=== PATIENT | female | born 1970 | race African-American/Black ===

== ENCOUNTER 2021-02-02 00:40 | Emergency (ER) | payer BC ==
--- OUTSIDE RECORDS SUMMARY | 2021-02-02 00:43 | XMS REPORT | Continuity of Care Document ---
:1970 Author Organization [facility] t Address [address] [place] [address] Care Team Providers Name Role Phone Nicolle OLIVEIRA Attending Clinician Unavailable Angela LOZADA Attending Clinician Doctor Unassigned, Name Attending Clinician Unavailable Argelia LOZADA Attending Clinician Helen Lockett Attending Clinician Claudio Dorado MD Attending Clinician Nicolle OLIVEIRA Admitting Clinician Unavailable Payers Payer Name Policy Type Policy Number Effective Date Expiration Date S ource Problems This patient has no known problems. Allergies, Adverse Reactions, Alerts Allergy Allergy Status Severity Reaction(s) Onset Inactive Treating Comm ents Source Name Type Date Date Clinician No Known DA Active U [facility] All[facility]ie 11-02 Baylee s 00:00: d 00 [facility] Medications This patient has no known medications. Procedures This patient has no known procedures. Encounters Start End Encounter Admission Attending Care Care Encounter Source Date/Time Date/Time Type Type Clinicians Facility Department ID 2019-12-18 Inpatient LE RIVAS TRA[facility] [id number] [place] 08:00:00 [facility] 2019-12-18 Inpatient C TEE, [facility] [id number] [place] 07:00:00 [facility] 2020-12-13 2020-12-13 Office SALVATORE Miller 1.2.840.114 [id number] 11:42:08 12:58:05 Visit Cristobal AMBULATOR 350.1.13.21 Y 0.2.7.2.686 [id number] 600 2020-12-13 2020-12-13 Orders Doctor KARINE 1.2.840.114 [id number] 00:00:00 00:00:00 Only Unassigned, MANJEET 350.1.13.10 [place] [facility] 4.2.7.2.686 [id number] 009 2020-11-02 2020-11-02 Office Walter Stout 1.2.840.114 [id number] 14:01:11 14:41:11 Visit C-Arm, Pmr Siemens AMBULATOR 350.1.13. 21 Y 0.2.7.2.686 [id number] 2020-11-02 2020-11-02 Orders Doctor KARNIE 1.2.840.114 [id number] 00:00:00 00:00:00 Only Unassigned, MANJEET 350.1.13.10 [place] [facility] 4.2.7.2.686 [id number] 009 2020-10-06 2020-10-06 RefEVELYN Banegas 1.2.840.114 [id number] 00:00:00 00:00:00 [facility] 350.1.13.10 [place] 4.2.7.2.686 Professio [phone] nal 044 Office [facility] 2020-07-29 2020-07-29 EVELYN Mcgrath 1.2.840.114 [id number] 00:00:00 00:00:00 [facility] 350.1.13.10 [place] 4.2.7.2.686 Professio [phone] nal 044 Office [facility] 2020-07-19 2020-07-19 RefEVELYN Banegas 1.2.840.114 [id number] 00:00:00 00:00:00 [facility] 350.1.13.10 [place] 4.2.7.2.686 Professio [phone] [place] [address] Office [facility] 2020-07-07 2020-07-07 Orders Doctor KARINE 1.2.840.114 [id number] 00:00:00 00:00:00 Only Unassigned, MANJEET 350.1.13.10 [place] [facility] 4.2.7.2.686 [id number] 009 2020-07-07 2020-07-07 Telephone [facility] 1.2.840.114 [id number] 00:00:00 00:00:00 [facility] 350.1.13.10 [place] 4.2.7.2.686 Professio [phone] [address] 2020-06-21 2020-06-21 Orders Doctor KARINE 1.2.840.114 [id number] 00:00:00 00:00:00 Only Unassigned, MANJEET 350.1.13.10 [place] [facility] 4.2.7.2.686 [id number] 009 2020-05-24 2020-05-24 Telephone [facility] 1.2.840.114 [id number] 00:00:00 00:00:00 [facility] [place] 350.1.13.10 [place] 4.2.7.2.686 Professio [phone] [address] 2020-04-28 2020-04-28 Telephone [facility] 1.2.840.114 [id number] 00:00:00 00:00:00 [facility] [place] 350.1.13.10 [place] 4.2.7.2.686 Professio [phone] [address] 2020-04-28 2020-04-28 Telephone [facility] 1.2.840.114 [id number] 00:00:00 00:00:00 [facility] [place] 350.1.13.10 [place] 4.2.7.2.686 Professio [phone] [address] 2020-04-20 2020-04-20 Orders Doctor KARINE 1.2.840.114 [id number] 00:00:00 00:00:00 Only Unassigned, MANJEET 350.1.13.10 [place] [facility] 4.2.7.2.686 [id number] 009 2020-04-16 2020-04-[address] [facility] 1.2.840.114 [id number] 00:00:00 00:00:00 [facility] [place] 350.1.13.10 [place] 4.2.7.2.686 Professio [phone] [address] 2020-04-15 2020-04-15 Orders Doctor KARINE 1.2.840.114 [id number] 00:00:00 00:00:00 Only Unassigned, MANJEET 350.1.13.10 [place] [facility] 4.2.7.2.686 [id number] [id number] 2020-04-13 2020-04-[address] [facility] 1.2.840.114 [id number] 00:00:00 00:00:00 [facility] [place] 350.1.13.10 [place] 4.2.7.2.686 Professio [phone] [address] 2020-04-13 2020-04-13 Telephone EVELYN Dorado 1.2.840.114 [id number] 00:00:00 00:00:00 [facility] 350.1.13.10 [place] 4.2.7.2.686 Professio [phone] [place] [address] Office [facility] 2020-04-12 2020-04-12 Office SALVATORE Miller 1.2.840.114 [id number] 10:02:20 10:55:55 Visit Cristobal AMBULATOR 350.1.13.21 Y 0.2.7.2.686 [id number] 2020-04-12 2020-04-[address] VAJOSE 1.2.840.114 [id number] 00:00:00 00:00:00 [facility] 350.1.13.10 [place] 4.2.7.2.686 Professio [phone] [place] [address] Office [facility] 2020-04-12 2020-04-12 Orders Doctor MILTON 1.2.840.114 [id number] 00:00:00 00:00:00 Only Unassigned, MANJEET 350.1.13.10 [place] [facility] 2.7.2.686 [id number] 009 2020-03-26 2020-03-26 Office EVELYN Dorado 1.2.840.114 [id number] 11:33:02 12:20:26 Visit Swathi Medrano 350.1.13.10 [place] 4.2.7.2.686 Chris [phone] [address] 2020-03-19 2020-03-19 Emergency E MHBL [facility]BL 7500 [facility]BL 23:20:00 23:20:00 2020-03-19 2020-03-19 Orders Doctor KARINE 1.2.840.114 [id number] 00:00:00 00:00:00 Only Unassigned, MANJEET 350.1.13.10 [place] [address]686 [phone] 009 Results Test Description Test Time Test Comments Results Result [facility] e Comments - XR L-SPINE 2019-07-05 Name: KATERYNA SAMSON 4+VIEWS 02:35:00 DEVAN [facility] : 1970 Age/S: 48 / F [address] [address] Unit #: [id number] Loc: [place] [address] Phys: Katie Guerrero MD Acct: [id number] Dis Date: Status: REG ER PHONE #: [phone] Exam Date: 07/05/2019 021 FAX #: Reason: hip pain EXAMS: CPT: [id number] XR L-SPINE 4+VIEWS 91030 Fluoro Time: DAP (Gy m2): Air Kerma (mGy): EXAM: Lumbar spine 5 views. HISTORY: Back pain R 16 COMPARISON: None available. FINDINGS: Mild bilateral facet arthrosis in the lower lumbar spine.. Lumbar spine demonstrates normal alignment. There are 5 nonrib-bearing lumbar vertebral bodies. Vertebral body heights and intervertebral disc spaces are maintained. There is no acute fracture or subluxation. Visualized soft tissues are unremarkable. IMPRESSION: No acute findings at 0235 Reported and signed by: Kian Stout M.D. CC: Katie Guerrero MD PAGE 1 Signed Report Name: KATERYNA SAMSON [facility] : 1970 Age/S: 48 / F [address] [address] Unit #: [id number] Loc: [place] [address] Phys: Katie Guerrero MD Acct: [id number] Dis Date: Status: REG ER PHONE #: [phone] Exam Date: 07/05/2019 0215 FAX #: Reason: hip pain EXAMS: CPT: [id number] XR L-SPINE 4+VIEWS 29493 Fluoro Time: DAP (Gy m2): Air Kerma (mGy): <Continued> Technologist: RT Ace(R) Trndcb Date/Time: 07/05/2019 (023) [id number] Orig Print D/T: S: 07/05/2019 (0238) PAGE 2 Signed Report - XR HIP BI 2019-07-05 Name: KATERYNA SAMSON W/PELVIS 02:33:00 DEVAN [facility] : 1970 Age/S: 48 / F [id number] [address] Unit #: [id number] Loc: [place] [address] Phys: Katie Guerrero MD Acct: [id number] Dis Date: Status: REG ER PHONE #: [phone] Exam Date: 07/05/2019 0200 FAX #: Reason: hip pain EXAMS: CPT: [id number] XR HIP BI W/PELVIS 14926 Fluoro Time: DAP (Gy m2): Air Kerma (mGy): EXAM: Pelvis and bilateral hips, 3 views Location code:J9 HISTORY: hip pain COMPARISON: None available FINDINGS: There is no acute fracture or dislocation. Severe osteoarthritis with complete loss of joint space at the right hip. The soft tissues are unremarkable.. IMPRESSION:No acute findings. Severe right hip osteoarthritis. at 0233 Reported and signed by: Kian Stout M.D. CC: Katie Guerrero MD PAGE 1 Signed Report Name: KATERYNA SAMSON [facility] : 1970 Age/S: 48 / F [address] [address] Unit #: [id number] Loc: [place] [address] Phys: Katie Guerrero MD Acct: [id number] Dis Date: Status: REG ER PHONE #: [phone] Exam Date: 07/05/2019 0200 FAX #: Reason: hip pain EXAMS: CPT: [id number] XR HIP BI W/PELVIS 21521 Fluoro Time: DAP (Gy m2): Air Kerma (mGy): <Continued> Technologist: Yumiko Merida RT(R) Trnscb Date/Time: 07/05/2019 (0233) [email or web address] Orig Print D/T: S: 07/05/2019 (0236) PAGE 2 Signed Report
[2021-02-02] MEDS ORDERED: MORPHINE 4 MG/ML SYR ONE (01:35)
[2021-02-02] MEDS ORDERED: ONDANSETRON 4 MG/2 ML VIAL ONE (01:36)
--- NOTE | 2021-02-02 04:49 | EDPHYS ---
Physician Documentation [facility] Name: Puja Abarca Age: 50 yrs Sex: Female : 1970 Arrival Date: 02/02/2021 Time: 00:45 Bed 2 Private MD: ED Physician Kian Tellez HPI: 02/02 01:27 This 50 yrs old Black Female presents to ER via Wheelchair with complaints of Leg Pain. rn 01:27 The patient presents with pain, that is acute. The complaints affect the right rn buttocks/thigh. Onset: The symptoms/episode began/occurred yesterday. Modifying factors: The symptoms are alleviated by remaining still, the symptoms are aggravated by movement. Associated signs and symptoms: Pertinent negatives calf tenderness, fever, rash, swelling, tingling, vomiting, warmth, weakness. Severity of symptoms: At their worst the symptoms were moderate, in the emergency department the symptoms are unchanged. The patient has experienced similar episodes in the past. Reports right leg pain, from right hip region/low back to right knee, + hx of dvt in past, no longer taking eliquis. Also has been seeing ortho for bad right hip and right knee. No injury recently. No fever. No swelling. . [employer]: 01:22 LMP N/A - Irregular menses ad5 Historical: - Allergies: 01:10 No Known Allergies; ea - PMHx: 01:19 Diabetes - NIDDM; Hypertension; DVT; High Cholesterol; ad5 - Immunization history:: Adult Immunizations up to date. - Social history:: Smoking status: Patient denies any tobacco usage or history of. Smoking status: unknown. - Family history:: not pertinent. - Hospitalizations: : No recent hospitalization is reported. ROS: 01:27 Constitutional: Negative for fever, chills, and weight loss, Eyes: Negative for injury, rn pain, redness, and discharge, Neck: Negative for injury, pain, and swelling, Cardiovascular: Negative for chest pain, palpitations, and edema, Respiratory: Negative for shortness of breath, cough, wheezing, and pleuritic chest pain, Abdomen/GI: Negative for abdominal pain, nausea, vomiting, diarrhea, and constipation, Back: + mild low back pain MS/Extremity: + RLE pain Skin: Negative for injury, rash, and discoloration, Neuro: Negative for headache, weakness, numbness, tingling, and seizure. Exam: 01:27 Constitutional: This is a well developed, well nourished patient who is awake, alert, rn appears uncomfortable getting into bed Head/Face: Normocephalic, atraumatic. Cardiovascular: Tachycardic, regular Respiratory: No increased work of breathing, no retractions or nasal flaring. Skin: Warm, dry with normal turgor. Normal color with no rashes, no lesions, and no evidence of cellulitis. MS/ Extremity: Pulses equal, no cyanosis. Neurovascular intact. Equal circumference. Neuro: Awake and alert, GCS 15, oriented to person, place, time, and situation. Vital Signs: 01:10 BP 207 / 108; Pulse 93; Resp 18; Temp 97.6; Pulse Ox 98% ; ea 01:22 BP 207 / 108; Pulse 101; Resp 18; Temp 97.6; Pulse Ox 96% on R/A; Weight 125.19 kg; ad5 Height 5 ft. 3 in. (160.02 cm); 02:00 BP 157 / 86; Pulse 65; Resp 18; Pulse Ox 98% ; ea 04:58 BP 155 / 85; Pulse 69; Resp 18; Temp 98; Pulse Ox 100% on R/A; mg2 01:22 Body Mass Index 48.89 (125.19 kg, 160.02 cm) ad5 MDM: 01:03 Patient medically screened. rn 04:45 Differential diagnosis: tendonitis, radiculopathy, DVT. Data reviewed: vital signs, rn nurses notes. 04:46 Counseling: I had a detailed discussion with the patient and/or guardian regarding: the rn historical points, exam findings, and any diagnostic results supporting the discharge/admit diagnosis, radiology results, the need for outpatient follow up, to return to the emergency department if symptoms worsen or persist or if there are any questions or concerns that arise at home. Special discussion: I discussed with the patient/guardian in detail that at this point there is no indication for admission to the hospital. It is understood, however, that if the symptoms persist or worsen the patient needs to return immediately for re-evaluation. 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 02/02 01:13 Order name: Extremity Venous Uni Ltd US rn 02/02 01:14 Order name: IV Start; Complete Time: : rn Administered Medications: 01:25 Drug: morphine 4 mg Route: IVP; Site: right antecubital; ea 04:50 Follow up: Response: No adverse reaction mg2 01:26 Drug: Zofran (Ondansetron) 4 mg Route: IVP; Site: right hand; ea 04:50 Follow up: Response: No adverse reaction mg2 04:50 Drug: Eliquis (apixaban) 5 mg Route: PO; mg2 04:50 Follow up: Response: No adverse reaction mg2 04:58 Drug: [place] (HYDROcodone-acetaminophen) 10 mg-325 mg 1 tabs Route: PO; mg2 04:58 Follow up: Response: No adverse reaction; Medication administered at discharge. mg2 Disposition: 02/02/21 04:48 Discharged to Home. Impression: Acute embolism and thrombosis of unspecified deep veins of right lower extremity. - Condition is Stable. - Discharge Instructions: Deep Vein Thrombosis. - Prescriptions for Eliquis 5 mg Oral tablet - take 1 tablet by ORAL route 2 times per day; 60 tablet. Tramadol 50 mg Oral Tablet - take 1 tablet by ORAL route every 8 hours as needed; 15 tablet. - Medication Reconciliation Form, Thank You Letter, Antibiotic Education, Prescription Opioid Use form. - Follow up: Private Physician; When: 2 - 3 days; Reason: Recheck today's complaints, Re-evaluation by your physician. - Problem is new. - Symptoms are unchanged. Signatures: Dispatcher [employer] EDMS Kian Tellez MD MD rn Antunez, Elena, RN RN ea Gardose, Michele, RN RN mg2 Davidson, Andrea ad5 Corrections: (The following items were deleted from the chart) 04:59 04:48 02/02/2021 04:48 Discharged to Home. Impression: Acute embolism and thrombosis of mg2 unspecified deep veins of right lower extremity. Condition is Stable. Forms are Medication Reconciliation Form, Thank You Letter, Antibiotic Education, Prescription Opioid Use. Follow up: Private Physician; When: 2 - 3 days; Reason: Recheck today's complaints, Re-evaluation by your physician. Problem is new. Symptoms are unchanged. rn
--- NOTE | 2021-02-02 04:49 | ER ---
Nurse's Notes [facility] Name: Puja Abarca Age: 50 yrs Sex: Female : 1970 Arrival Date: 02/02/2021 Time: 00:45 Bed 2 Private MD: Diagnosis: Acute embolism and thrombosis of unspecified deep veins of right lower extremity Presentation: 02/02 01:09 Ebola Screen: No symptoms or risks identified at this time. ea 01:10 Initial Sepsis Screen: Does the patient meet any 2 criteria? No. Patient's initial ea sepsis screen is negative. Does the patient have a suspected source of infection? No. Patient's initial sepsis screen is negative. Risk Assessment: Do you want to hurt yourself or someone else? Patient reports no desire to harm self or others. Onset of symptoms was February 02, 2021. 01:10 Acuity: JAYME 3 ea 01:16 Chief complaint: Patient states: Pt reports R groin pain that radiates to R knee that ad5 began today. Denies fall or injury. Reports hx of "messed up hip" and "blood clot". Pt reports dx with blood clot in past year and taking Eliquis for this, but states ran out of med recently. Denies paresthesias. Distal SMCs intact. Coronavirus screen: Client denies travel out of the [place] in the last 14 days. At this time, the client does not indicate any symptoms associated with coronavirus-19. 01:16 Method Of Arrival: Wheelchair ad5 Triage Assessment: 01:20 General: Appears uncomfortable, Behavior is calm, cooperative, appropriate for age. ad5 Pain: Complains of pain in right leg Pain at worst was 10 out of 10 on a pain scale. Quality of pain is described as throbbing, Pain began gradually, 1 day ago. Is continuous, Aggravated by increased activity, weight bearing, Noted to be Also complains of difficulty walking Current management - is no interventions. Neuro: No deficits noted. Level of Consciousness is awake, alert, obeys commands, Oriented to person, place, time, situation. Cardiovascular: No deficits noted. Respiratory: No deficits noted. GI: No deficits noted. : No deficits noted. Derm: No deficits noted. Musculoskeletal: Capillary refill < 3 seconds, Tenderness present in medial aspect of right knee Reports pain in right leg Pain is 10 out of 10 on a pain scale. 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 - Social history:: Smoking status: Patient denies any tobacco usage or history of. Smoking status: unknown. - Family history:: not pertinent. - Hospitalizations: : No recent hospitalization is reported. Screenin:09 Abuse screen: Denies threats or abuse. Nutritional screening: No deficits noted. ea Tuberculosis screening: No symptoms or risk factors identified. Fall Risk None identified. Assessment: 01:23 General: Appears uncomfortable, Behavior is calm, cooperative, appropriate for age. ad5 Pain: Complains of pain in right leg Pain currently is 10 out of 10 on a pain scale. at worst was 10 out of 10 on a pain scale. Quality of pain is described as throbbing, Pain began gradually, 1 day ago. Is continuous, Aggravated by increased activity, weight bearing. Neuro: No deficits noted. Level of Consciousness is awake, alert, obeys commands, Oriented to person, place, time, situation, Appropriate for age. Cardiovascular: No deficits noted. Heart tones S1 Capillary refill < 3 seconds Clubbing of nail beds is absent JVD is absent Patient's skin is warm and dry. Pulses are all present. Rhythm is regular Chest pain is denied. Respiratory: No deficits noted. Airway is patent Trachea midline Respiratory effort is even, unlabored, Respiratory pattern is regular, symmetrical. GI: No deficits noted. : No deficits noted. EENT: No deficits noted. Derm: No deficits noted. Musculoskeletal: Capillary refill < 3 seconds, Range of motion: limited in right hip and right knee Swelling absent Tenderness present in medial aspect of right knee Reports pain in right leg. 02:45 Reassessment: Patient and/or family updated on plan of care and expected duration. Pain ea level reassessed. Patient is alert, oriented x 3, equal unlabored respirations, skin warm/dry/pink. Awaiting on ultrasounds. 02:48 Reassessment: Patient and/or family updated on plan of care and expected duration. Pain ea level reassessed. Patient is alert, oriented x 3, equal unlabored respirations, skin warm/dry/pink. Ultrasounds at bedside. 04:06 Reassessment: Patient appears in no apparent distress at this time. Patient and/or ad5 family updated on plan of care and expected duration. Pain level reassessed. Patient is alert, oriented x 3, equal unlabored respirations, skin warm/dry/pink. Vital Signs: 01:10 BP 207 / 108; Pulse 93; Resp 18; Temp 97.6; Pulse Ox 98% ; ea 01:22 BP 207 / 108; Pulse 101; Resp 18; Temp 97.6; Pulse Ox 96% on R/A; Weight 125.19 kg; ad5 Height 5 ft. 3 in. (160.02 cm); 02:00 BP 157 / 86; Pulse 65; Resp 18; Pulse Ox 98% ; ea 04:58 BP 155 / 85; Pulse 69; Resp 18; Temp 98; Pulse Ox 100% on R/A; mg2 01:22 Body Mass Index 48.89 (125.19 kg, 160.02 cm) ad5 ED Course: 00:45 Patient arrived in ED. es 01:02 Destin Salgado is Primary Nurse. ad5 01:03 Kian Tellez MD is Attending Physician. rn 01:09 Patient has correct armband on for positive identification. Placed in gown. Bed in low ea position. Call light in reach. Side rails up X2. Pulse ox on. NIBP on. 01:10 Arm band placed on right wrist. Patient placed in an exam room, on a stretcher, on ea pulse oximetry. 01:11 Triage completed. ea 01:27 Inserted saline lock: 22 gauge in right hand, using aseptic technique. Blood collected. ea 03:23 Extremity Venous Uni Ltd US In Process Unspecified. EDMS 04:58 No provider procedures requiring assistance completed. IV discontinued, intact, mg2 bleeding controlled, No redness/swelling at site. Pressure dressing applied. Administered Medications: 01:25 Drug: morphine 4 mg Route: IVP; Site: right antecubital; ea 04:50 Follow up: Response: No adverse reaction mg2 01:26 Drug: Zofran (Ondansetron) 4 mg Route: IVP; Site: right hand; ea 04:50 Follow up: Response: No adverse reaction mg2 04:50 Drug: Eliquis (apixaban) 5 mg Route: PO; mg2 04:50 Follow up: Response: No adverse reaction mg2 04:58 Drug: [place] (HYDROcodone-acetaminophen) 10 mg-325 mg 1 tabs Route: PO; mg2 04:58 Follow up: Response: No adverse reaction; Medication administered at discharge. mg2 Outcome: 04:48 Discharge ordered by . rn 04:59 Discharged to home via wheelchair, with family. mg2 04:59 Condition: stable 04:59 Discharge instructions given to patient, family, Instructed on discharge instructions, follow up and referral plans. medication usage, Demonstrated understanding of instructions, follow-up care, medications, Prescriptions given X 2. 04:59 Patient left the ED. mg2 Signatures: Dispatcher [employer] EDKellie Monson Roman, MD MD rn Antunez, Elena, RN RN ea Gardose, Michele, RN RN mg2 Davidson, Andrea ad5
[2021-02-02] MEDS ORDERED: APIXABAN 5 MG TABLET ONE (05:07)
[2021-02-02 05:10] VITALS: BP 155/85; TEMP 98; O2SAT 100
[2021-02-02] MEDS ORDERED: HYDROCODONE/APAP 10/325 TAB ONE (05:14)
--- NOTE | 2021-02-02 11:46 | RAD REPORT ---
EXAM DESCRIPTION: USExtremity Venous Uni Ltd02/02/2021 3:23 am CLINICAL HISTORY: PAIN COMPARISON: None. TECHNIQUE: Grayscale, color Doppler, duplex Doppler images with compression and augmentation of righ t lower extremity veins. FINDINGS: Right femoral vein midthigh and distal thigh partial thrombus. Right common femoral, greater saphenous, femoral proximal thigh veins unremarkable without evidence o f clot. Right lower leg (calf) veins not imaged. IMPRESSION: Right femoral vein mid-distal thigh partial DVT of indeterminate age. Electronically signed by: Keshav John MD 02/02/2021 4:16 AM CDT Due to temporary technical issues with the PACS/Fluency reporting system, reports are being signed by the in house radiologist without review as a courtesy to ensure prompt reporting. The interpreting r adiologist is fully responsible for the content of the report.
== END 2021-02-02 04:59 | disposition home or self-care (01) ==
LOC: ER 00:40
DX: I82.401 Acute embolism and thrombosis of unspecified deep veins of right lower extremity (principal); I10 Essential (primary) hypertension; Z86.718 Personal history of other venous thrombosis and embolism
CPT/HCPCS: 93971; J2405; 99284

== ENCOUNTER 2021-04-11 04:21 | Emergency (ER) | payer BC ==
--- OUTSIDE RECORDS SUMMARY | 2021-04-11 04:24 | XMS REPORT | Continuity of Care Document ---
:1970 Author Organization [facility] t Address [address] [place] [address] Care Team Providers Name Role Phone Nicolle OLIVEIRA Attending Clinician Unavailable Claudio Dorado MD Attending Clinician Doctor Unassigned, Name Attending Clinician Unavailable Brian LOZADA Attending Clinician Angela LOZADA Attending Clinician Argelia LOZADA Attending Clinician Helen Lockett Attending Clinician Nicolle OLIVEIRA Admitting Clinician Unavailable Payers Payer Name Policy Type Policy Number Effective Date Expiration Date S ource Problems This patient has no known problems. Allergies, Adverse Reactions, Alerts Allergy Allergy Status Severity Reaction(s) Onset Inactive Treating Comm ents Source Name Type Date Date Clinician No Known DA Active [facility] 11[facility]02 [facility] Medications This patient has no known medications. Procedures This patient has no known procedures. Encounters Start End Encounter Admission Attending Care Care Encounter Source Date/Time Date/Time Type Type Clinicians Facility Department ID 2019-12-18 Inpatient C [facility] [id number] [place] 08:00:00 [facility] 2019-12-18 Inpatient C [facility] [id number] [place] 07:00:00 [facility] 2021-03-22 2021-03-[address] [facility] [id number] 00:00:00 00:00:00 [facility] [id number] [place] [id number] Professio [phone] [place] [address] [address] 2021-03-18 2021-03-18 [facility] [id number] 00:00:00 00:00:00 [facility] [id number] [place] [id number] Professio [phone] [place] [address] [address] 2021-03-14 2021-03-14 [facility] 1.2.840.114 [id number] 00:00:00 00:00:00 [facility] [id number] [place] 4.2.7.2.686 Professio [phone] [place] [address] [address] 2021-03-14 2021-03-14 Orders Doctor KARINE 1.2.840.114 [id number] 00:00:00 00:00:00 Only Unassigned, MANJEET 350.1.13.10 [facility] 4.2.7.2.686 [phone] [id number] 2021-02-10 2021-02-10 Office Hector Torres 1.2.840.114 [id number] 10:45:58 11:25:58 Visit AMBULATOR 350.1.13.21 Y 0.2.7.2.686 [phone] 800 2020-12-13 2020-12-13 Office SALVATORE Miller 1.2.840.114 [id number] 11:42:08 12:58:05 Visit Cristobal AMBULATOR [id number] Y [id number] 600 2020-11-02 2020-11-02 Office Walter Stout [facility] 1.2.840.114 [id number] 14:01:11 14:41:11 Visit C-Arm, Pmr Siemens AMBULATOR 350.1.13. 21 Y [id number] 800 2020-04-12 2020-04-12 Office SALVATORE Miller 1.2.840.114 [id number] 10:02:20 10:55:55 Visit Cristobal AMBULATOR 350.1.13.21 Y [id number] [id number] 2020-03-19 2020-03-19 Emergency E [facility]BL [facility] 7500 [facility] 23:20:00 23:20:00 Results Test Description Test Time Test Comments Results Result [facility] e Comments - XR L-SPINE 2019-07-05 Name: KATERYNA SAMSON 4+VIEWS 02:35:00 DEVAN [facility] : 1970 Age/S: 48 / F [id number] Unit #: [id number] Loc: [place] [address] Phys: Katie Guerrero MD Acct: [id number] Dis Date: Status: REG ER PHONE #: [phone] Exam Date: 07/05/2019 0215 FAX #: Reason: hip pain EXAMS: CPT: [id number] XR L-SPINE 4+VIEWS 02675 Fluoro Time: DAP (Gy m2): Air Kerma [...] PAGE 1 Signed Report Name: KATERYNA SAMSON [facility] : 1970 Age/S: 48 / F [address] Unit #: [id number] Loc: [place] [address] Phys: Katie Guerrero MD Acct: [id number] Dis Date: Status: REG ER PHONE #: [phone] Exam Date: 07/05/2019 0215 FAX #: Reason: hip pain EXAMS: CPT: [id number] XR L-SPINE 4+VIEWS 23582 Fluoro Time: DAP (Gy m2): Air Kerma (mGy): <Continued> Technologist: Yumiko Merida RT(R) Trnscb Date/Time: 07/05/2019 (0235) [id number] Orig Print D/T: S: 07/05/2019 (0238) PAGE 2 Signed Report - XR HIP BI 2019-07-05 Name: KATERYNA SAMSON W/PELVIS 02:33:00 DEVAN [facility] : 1970 Age/S: 48 / F [address] Unit #: [id number] Loc: [place] [address] Phys: Katie Guerrero MD Acct: [id number] Dis Date: Status: REG ER PHONE #: [phone] Exam Date: 07/05/2019 0200 FAX #: Reason: hip pain EXAMS: CPT: [id number] XR HIP BI W/PELVIS 35151 Fluoro Time: DAP (Gy m2): Air Kerma [...] PAGE 1 Signed Report Name: KATERYNA SAMSON [facility] : 1970 Age/S: 48 / F [address] Unit #: [id number] Loc: [place] [address] Phys: Katie Guerrero MD Acct: [id number] Dis Date: Status: REG ER PHONE #: [phone] Exam Date: 07/05/2019 0200 FAX #: Reason: hip pain EXAMS: CPT: [id number] XR HIP BI W/PELVIS 55809 Fluoro Time: DAP (Gy m2): Air Kerma (mGy): <Continued> Technologist: Yumiko Merida RT(R) Trnscb Date/Time: 07/05/2019 (0233) [id number] Orig Print D/T: S: 07/05/2019 (0236) PAGE 2 Signed Report
[2021-04-11] MEDS ORDERED: ACETAMINOPHEN 500 MG TAB ONE (05:52)
--- NOTE | 2021-04-11 06:52 | ER ---
Nurse's Notes [facility] Name: Puja Abarca Age: 50 yrs Sex: Female : 1970 Arrival Date: 04/11/2021 Time: 04:23 Bed 19 Private MD: Diagnosis: Exudative Pharyngitis Presentation: 04/11 04:43 Chief complaint: Patient states: head cold for a few days, sore throat, right ear pain em and nasal drainage, denies fever, has tried OTC medication with no relief. Coronavirus screen: Client denies travel out of the [place] in the last 14 days. Ebola Screen: Patient negative for fever greater than or equal to 101.5 degrees Fahrenheit, and additional compatible Ebola Virus Disease symptoms Patient denies exposure to infectious person. Patient denies travel to an Ebola-affected area in the 21 days before illness onset. No symptoms or risks identified at this time. Initial Sepsis Screen: Does the patient meet any 2 criteria? HR > 90 bpm. No. Patient's initial sepsis screen is negative. Does the patient have a suspected source of infection? No. Patient's initial sepsis screen is negative. Risk Assessment: Do you want to hurt yourself or someone else? Patient reports no desire to harm self or others. Onset of symptoms was April 11, 2021. 04:43 Method Of Arrival: Wheelchair em 04:43 Acuity: JAYME 4 em Triage Assessment: 04:59 General: Appears in no apparent distress. Behavior is calm, cooperative. Pain: Denies ak2 pain. EENT: Reports nasal congestion. 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 - Social history:: Smoking status: Patient denies any tobacco usage or history of. Screenin:00 Abuse screen: Denies threats or abuse. Denies injuries from another. Nutritional ak2 screening: No deficits noted. Tuberculosis screening: No symptoms or risk factors identified. Fall Risk None identified. Assessment: 05:00 General: Appears in no apparent distress. Behavior is calm, cooperative. ak2 05:00 Neuro: No deficits noted. Cardiovascular: No deficits noted. Respiratory: No deficits ak2 noted. 05:24 Reassessment: Patient and/or family updated on plan of care and expected duration. Pain ak2 level reassessed. 06:08 Reassessment: Patient and/or family updated on plan of care and expected duration. Pain ak2 level reassessed. Vital Signs: 04:43 Pulse 106; Resp 20; Temp 98.5(O); Pulse Ox 99% on R/A; Weight 126.1 kg; Height 5 ft. 3 em in. (160.02 cm); Pain 10/10; 04:50 BP 158 / 75; em 05:00 BP 143 / 76; Pulse 85; Resp 18; Pulse Ox 98% on R/A; ak2 04:43 Body Mass Index 49.24 (126.10 kg, 160.02 cm) em ED Course: 04:23 Patient arrived in ED. 04:45 Triage completed. em 04:45 Arm band placed on. 04:54 Derik Damico MD is Attending Physician. [facility] 04:59 Mehul Sagastume is Primary Nurse. ak2 05:00 Patient has correct armband on for positive identification. ak2 05:00 No provider procedures requiring assistance completed. Patient did not have IV access ak2 during this emergency room visit. Administered Medications: 05:31 Drug: Tylenol 1000 mg Route: PO; ak2 06:35 Follow up: Response: Pain is decreased ak2 Outcome: 06:52 Discharge ordered by . [facility] 06:58 Discharged to home ambulatory. ak2 06:58 Condition: good 06:58 Discharge instructions given to patient, Prescriptions given X 06:58 Patient left the ED. ak2 Signatures: Kellie Orlando Edgar, RN RN Derik Damico MD MD Mehul Zhang ak2
--- NOTE | 2021-04-11 06:52 | EDPHYS ---
Physician Documentation [facility] Name: Puja Abarca Age: 50 yrs Sex: Female : 1970 Arrival Date: 04/11/2021 Time: 04:23 Bed 19 Private MD: ED Physician Derik Damico HPI: 04/11 05:10 This 50 yrs old Black Female presents to ER via Wheelchair with complaints of Ear Pain, mh7 Sore Throat, Headache, Nasal Drainage. 05:23 The patient presents with sore throat. The patient describes throat pain as mh7 intermittent. Onset: The symptoms/episode began/occurred 4 day(s) ago. Severity of symptoms: At their worst the symptoms were moderate, 2 day(s) ago, in the emergency department the symptoms have improved, moderately. Modifying factors: The symptoms are alleviated by nothing, the symptoms are aggravated by swallowing. Associated signs and symptoms: Pertinent positives: earache, headache, rhinorrhea, nasal drainage, Pertinent negatives chest pain, chills, cough, diarrhea, dysphagia, fever, flu-like symptoms, nausea, shortness of breath, vomiting. 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 - Social history:: Smoking status: Patient denies any tobacco usage or history of. ROS: 05:23 Constitutional: Negative for fever, chills, and weight loss, Eyes: Negative for injury, mh7 pain, redness, and discharge, Neck: Negative for injury, pain, and swelling, Cardiovascular: Negative for chest pain, palpitations, and edema, Respiratory: Negative for shortness of breath, cough, wheezing, and pleuritic chest pain, Abdomen/GI: Negative for abdominal pain, nausea, vomiting, diarrhea, and constipation, Back: Negative for injury and pain, : Negative for injury, bleeding, discharge, and swelling, MS/Extremity: Negative for injury and deformity, Skin: Negative for injury, rash, and discoloration, Psych: Negative for depression, anxiety, suicide ideation, homicidal ideation, and hallucinations, Allergy/Immunology: Negative for hives, rash, and allergies, Endocrine: Negative for neck swelling, polydipsia, polyuria, polyphagia, and marked weight changes, Hematologic/Lymphatic: Negative for swollen nodes, abnormal bleeding, and unusual bruising. Exam: 05:23 Constitutional: This is a well developed, well nourished patient who is awake, alert, mh7 and in no acute distress. Head/Face: Normocephalic, atraumatic. Eyes: Pupils equal round and reactive to light, extra-ocular motions intact. Lids and lashes normal. Conjunctiva and sclera are non-icteric and not injected. Cornea within normal limits. Periorbital areas with no swelling, redness, or edema. 05:23 Neck: Trachea midline, no thyromegaly or masses palpated, and no cervical lymphadenopathy. Supple, full range of motion without nuchal rigidity, or vertebral point tenderness. No Meningismus. Chest/axilla: Normal chest wall appearance and motion. Nontender with no deformity. No lesions are appreciated. Cardiovascular: Regular rate and rhythm with a normal S1 and S2. No gallops, murmurs, or rubs. Normal PMI, no JVD. No pulse deficits. Respiratory: Lungs have equal breath sounds bilaterally, clear to auscultation and percussion. No rales, rhonchi or wheezes noted. No increased work of breathing, no retractions or nasal flaring. Abdomen/GI: Soft, non-tender, with normal bowel sounds. No distension or tympany. No guarding or rebound. No evidence of tenderness throughout. Back: No spinal tenderness. No costovertebral tenderness. Full range of motion. Skin: Warm, dry with normal turgor. Normal color with no rashes, no lesions, and no evidence of cellulitis. MS/ Extremity: Pulses equal, no cyanosis. Neurovascular intact. Full, normal range of motion. Neuro: Awake and alert, GCS 15, oriented to person, place, time, and situation. Cranial nerves II-XII grossly intact. Motor strength 5/5 in all extremities. Sensory grossly intact. Cerebellar exam normal. Normal gait. Psych: Awake, alert, with orientation to person, place and time. Behavior, mood, and affect are within normal limits. 05:23 ENT: External ear(s): are unremarkable, Ear canal(s): are normal, clear, TM's: are normal, Nose: is normal, Mouth: is normal, Posterior pharynx: Airway: normal, Tonsils: bilaterally enlarged, with erythema, with exudate, Uvula: normal, swelling, is not appreciated, erythema, that is moderate, exudate, that is mild, peritonsillar mass, is not appreciated, pooling of secretions, is not appreciated, Dental exam: normal, Voice: is normal. Vital Signs: 04:43 Pulse 106; Resp 20; Temp 98.5(O); Pulse Ox 99% on R/A; Weight 126.1 kg; Height 5 ft. 3 em in. (160.02 cm); Pain 10/10; 04:50 BP 158 / 75; em 05:00 BP 143 / 76; Pulse 85; Resp 18; Pulse Ox 98% on R/A; ak2 04:43 Body Mass Index 49.24 (126.10 kg, 160.02 cm) em MDM: 06:50 Differential diagnosis: pharyngitis, tonsillitis, viral syndrome Otitis Media. Data [facility] reviewed: vital signs, nurses notes, lab test result(s), Flu: negative. Data interpreted: Pulse oximetry: on room air is 98 %. Interpretation: normal. Counseling: I had a detailed discussion with the patient and/or guardian regarding: the historical points, exam findings, and any diagnostic results supporting the discharge/admit diagnosis, the presence of at least one elevated blood pressure reading (>120/80) during this emergency department visit, lab results, the need for outpatient follow up, to return to the emergency department if symptoms worsen or persist or if there are any questions or concerns that arise at home. Response to treatment: the patient's symptoms have markedly improved after treatment. 06:52 Patient medically screened. [facility] 04/11 04:49 Order name: Flu; Complete Time: 06:01 em 04/11 04:49 Order name: Strep; Complete Time: 06:01 em 04/11 05:48 Order name: Throat Culture EDMS 04/11 06:35 Order name: SARS-COV-2 RT PCR; Complete Time: 06:43 EDMS Administered Medications: 05:31 Drug: Tylenol 1000 mg Route: PO; ak2 06:35 Follow up: Response: Pain is decreased ak2 Disposition Summary: 04/11/21 06:52 Discharge Ordered Location: Home [facility] Problem: new [facility] Symptoms: have improved [facility] Condition: Stable [facility] Diagnosis - Exudative Pharyngitis [facility] Followup: [facility] - With: Private Physician - When: 1 - 2 days - Reason: Worsening of condition, Recheck today's complaints, Continuance of care, Re-evaluation by your physician Discharge Instructions: - Discharge Summary Sheet [facility] - Pharyngitis, [id number] [facility] Forms: - Medication Reconciliation Form [facility] - Thank You Letter [facility] - Antibiotic Education [facility] - Prescription Opioid Use [facility] Prescriptions: - penicillin V potassium 500 mg Oral tablet - take 1 tablet by ORAL route every 12 hours for 10 days; 20 tablet; Refills: 0, 7 Product Selection Permitted Signatures: Dispatcher [employer] Edgardo Alexis RN RN em Holmes, Maurice, MD MD [facility] Mehul Sagastume2 Corrections: (The following items were deleted from the chart) 05:16 04:50 CORONAVIRUS+MR.LAB.BRZ ordered. SOURAV BENJAMIN
[2021-04-11 07:04] VITALS: TEMP 98.5
[2021-04-11 07:08] VITALS: BP 143/76; O2SAT 98
== END 2021-04-11 06:58 | disposition home or self-care (01) ==
LOC: ER 04:21
DX: J02.9 Acute pharyngitis, unspecified (principal); I10 Essential (primary) hypertension; Z20.822 Contact with and (suspected) exposure to COVID-19
CPT/HCPCS: 87070; 87081; 87804 ×2; 99283; U0003

== ENCOUNTER 2021-07-05 00:12 | Emergency (ER) | payer BC ==
[2021-07-05] MEDS ORDERED: HYDROCODONE/APAP 10/325 TAB ONE (01:36)
[2021-07-05] MEDS ORDERED: LIDOCAINE 4% PATCH ONE (01:48)
--- NOTE | 2021-07-05 02:06 | ER ---
Nurse's Notes [facility] Name: Puja Abarca Age: 50 yrs Sex: Female : 1970 Arrival Date: 07/05/2021 Time: 00:15 Bed 12 Private MD: Diagnosis: Sciatica, right side;Pain in right knee Presentation: 07/05 00:25 Chief complaint: Patient states: Pt states she developed right lower back pain, hip and wg knee pain starting Sunday night. Pt denies any falls or trauma. Pt states she has arthritis but this is worse. Pt states she was walking to the bathroom a couple hours ago and the pain was unbearable. Coronavirus screen: Vaccine status: Patient reports receiving the 2nd dose of the covid vaccine. Date June 25, 2021 At this time, the client does not indicate any symptoms associated with coronavirus-19. Ebola Screen: Patient negative for fever greater than or equal to 101.5 degrees Fahrenheit, and additional compatible Ebola Virus Disease symptoms Patient denies exposure to infectious person. Patient denies travel to an Ebola-affected area in the 21 days before illness onset. No symptoms or risks identified at this time. Initial Sepsis Screen: Does the patient meet any 2 criteria? No. Patient's initial sepsis screen is negative. Does the patient have a suspected source of infection? No. Patient's initial sepsis screen is negative. Risk Assessment: Do you want to hurt yourself or someone else? Patient reports no desire to harm self or others. Onset of symptoms was July 03, 2021. 00:25 Method Of Arrival: Ambulatory 00:25 Acuity: JAYME 3 wg Triage Assessment: 00:31 General: Appears uncomfortable, obese, well developed, Behavior is calm, cooperative, wg appropriate for age. Pain: Complains of pain in Right low back, hip and knee Pain currently is 10 out of 10 on a pain scale. Quality of pain is described as aching, sharp, Pain began 2-3 days ago. 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 - Social history:: Smoking status: Patient denies any tobacco usage or history of. Patient/guardian denies using street drugs, IV drugs. Screenin:05 Abuse screen: Denies. Nutritional screening: No deficits noted. wr 01:06 Tuberculosis screening: No symptoms or risk factors identified. wr 01:06 Fall Risk Ambulatory Aid- Gait- Weak (10 pts.). wr Assessment: 01:05 Reassessment: No changes from previously documented assessment. wr Vital Signs: 00:25 BP 132 / 74; Pulse 96; Resp 18; Temp 98.3; Pulse Ox 100% on R/A; Weight 136.08 kg; wg Height 5 ft. 3 in. (160.02 cm); Pain 10/10; 01:04 BP 132 / 74; Pulse 96; Resp 18; Temp 98.3; Pulse Ox 100% ; Weight 136.08 kg; Height 5 wr ft. 3 in. (160.02 cm); 02:40 Pain 7/10; wr 02:40 BP 6 / ???; wr 02:40 Pain 6/10; wr 01:04 Body Mass Index 53.14 (136.08 kg, 160.02 cm) wr ED Course: 00:15 Patient arrived in ED. wm 00:30 Triage completed. wg 00:31 Arm band placed on right wrist. wg 00:43 Bernardo Marroquin NP is PHCP. pm1 00:44 Jaime Ashley MD is Attending Physician. pm1 01:16 Knee Right 3 View XRAY In Process Unspecified. EDMS 01:46 Blanche Vora is Primary Nurse. wr 02:04 Extremity Venous Uni Ltd US In Process Unspecified. EDMS Administered Medications: 01:14 Drug: Reubens (HYDROcodone-acetaminophen) 10 mg-325 mg 1 tabs Route: PO; wr 02:40 Follow up: Pain 7/10 Adult wr 01:24 Drug: Lidoderm Patch 5 % (700 mg/patch) 1 patches Route: Topical; Site: affected area; wr 02:40 Follow up: BP 6 / ??? wr 02:40 Follow up: Pain 6/10 Adult wr Outcome: 02:05 Discharge ordered by . pm1 02:41 Patient left the ED. wr Signatures: Dispatcher [employer] EDMS Bernardo Marroquin NP RN PROCEDURE pm1 Marilee Mcmahon Liam, RN wg Blanche Vora wr
--- NOTE | 2021-07-05 02:06 | EDPHYS ---
Physician Documentation [facility] Name: Puja Abarca Age: 50 yrs Sex: Female : 1970 Arrival Date: 07/05/2021 Time: 00:15 Bed 12 Private MD: ED Physician Jaime Ashley HPI: 07/05 00:59 This 50 yrs old Black Female presents to ER via Ambulatory with complaints of Low Back pm1 Pain. 00:59 The patient presents with pain that is acute. The symptoms are located in the right low pm1 back. The pain radiates to the right leg. The problem was sustained awkward movement of right leg due to arthritis of right knee. Patient is walking with right leg straight due to knee pain. Onset: The symptoms/episode began/occurred 3 day(s) ago. Modifying factors: The patient symptoms are alleviated by remaining still, the patient symptoms are aggravated by walking, Bending knee and hip. Associated signs and symptoms: Pertinent negatives: abdominal pain, dysuria, fever, numbness, tingling, weakness. Severity of symptoms: in the emergency department the symptoms are actually worse. [facility]: 00:31 LMP 06/21/2021 wg Historical: - Allergies: 00:30 No Known Allergies; wg - Home Meds: 00:30 Metformin Oral [Active]; Glipizide Oral [Active]; wg - PMHx: 00:30 Diabetes - NIDDM; High Cholesterol; Hypertension; wg - Immunization history:: Adult Immunizations up to date. - Social history:: Smoking status: Patient denies any tobacco usage or history of. Patient/guardian denies using street drugs, IV drugs. ROS: 00:59 Constitutional: Negative for fever, chills, and weight loss, Cardiovascular: Negative pm1 for chest pain, palpitations, and edema, Respiratory: Negative for shortness of breath, cough, wheezing, and pleuritic chest pain, Abdomen/GI: Negative for abdominal pain, nausea, vomiting, diarrhea, and constipation. 00:59 Skin: Negative for injury, rash, and discoloration, Neuro: Negative for headache, weakness, numbness, tingling, and seizure. 00:59 Back: Positive for of the right low back. 00:59 MS/extremity: Positive for pain, swelling, of the right quadriceps and right knee, Negative for deformity. 00:59 All other systems are negative. Exam: 00:59 Constitutional: This is a well developed, well nourished patient who is awake, alert, pm1 and in no acute distress. Head/Face: Normocephalic, atraumatic. 00:59 Cardiovascular: Exam negative for acute changes, Rate: normal, Rhythm: regular, Pulses: no pulse deficits are appreciated. 00:59 Respiratory: Exam negative for acute changes, respiratory distress, shortness of breath. 00:59 Abdomen/GI: Inspection: obese Palpation: abdomen is soft and non-tender, in all quadrants. 00:59 Back: vertebral tenderness, is not appreciated, Straight leg raises: right lower extremity illicits pain, at 15 degrees. 00:59 Musculoskeletal/extremity: Extremities: grossly normal except: noted in the right knee: tenderness, There is no evidence of swelling, Circulation is intact in all extremities. the right foot Sensation intact. 00:59 Skin: Exam negative for 00:59 Neuro: Exam negative for acute changes, Orientation: is normal, Motor: is normal, moves all fours, Sensation: is normal, no obvious gross deficits. Vital Signs: 00:25 BP 132 / 74; Pulse 96; Resp 18; Temp 98.3; Pulse Ox 100% on R/A; Weight 136.08 kg; wg Height 5 ft. 3 in. (160.02 cm); Pain 10/10; 01:04 BP 132 / 74; Pulse 96; Resp 18; Temp 98.3; Pulse Ox 100% ; Weight 136.08 kg; Height 5 wr ft. 3 in. (160.02 cm); 02:40 Pain 7/10; wr 02:40 BP 6 / ???; wr 02:40 Pain 6/10; wr 01:04 Body Mass Index 53.14 (136.08 kg, 160.02 cm) wr MDM: 00:44 Patient medically screened. pm1 01:41 Data reviewed: vital signs. Data interpreted: Pulse oximetry: on room air is 100 %. pm1 Interpretation: normal. 01:41 ED course: Negative U/S for DVT. pm1 02:05 Counseling: I had a detailed discussion with the patient and/or guardian regarding: the pm1 historical points, exam findings, and any diagnostic results supporting the discharge/admit diagnosis, radiology results, the need for outpatient follow up, a family practitioner, to return to the emergency department if symptoms worsen or persist or if there are any questions or concerns that arise at home. 10 00:54 Order name: Knee Right 3 View XRAY pm1 07/05 00:54 Order name: Extremity Venous Uni Ltd US pm1 Administered Medications: 01:14 Drug: [place] (HYDROcodone-acetaminophen) 10 mg-325 mg 1 tabs Route: PO; wr 02:40 Follow up: Pain 710 Adult wr 01:24 Drug: Lidoderm Patch 5 % (700 mg/patch) 1 patches Route: Topical; Site: affected area; wr 02:40 Follow up: BP 6 / ??? wr 02:40 Follow up: Pain 610 Adult wr Disposition: 06:53 Co-signature as Attending Physician, Jaime Ashley MD I agree with the assessment and rodriguez plan of care. Disposition Summary: 07/05/21 02:05 Discharge Ordered Location: Home pm1 Problem: new pm1 Symptoms: have improved pm1 Condition: Stable pm1 Diagnosis - Sciatica, right side pm1 - Pain in right knee pm1 Followup: pm1 - With: Emergency Department - When: As needed - Reason: Worsening of condition Followup: pm1 - With: Private Physician - When: 2 - 3 days - Reason: Recheck today's complaints, Continuance of care, Re-evaluation by your physician Discharge Instructions: - Discharge Summary Sheet pm1 - Joint Pain pm1 - Arthritis pm1 - Sciatica pm1 Forms: - Medication Reconciliation Form pm1 - Thank You Letter pm1 - Antibiotic Education pm1 - Prescription Opioid Use pm1 Prescriptions: - Lidoderm 5 % Topical adhesive patch,medicated - apply 1 patch by TRANSDERMAL route once daily As needed 12 hours on and 12 pm1 hours off in a 24 hour period; 10 patch; Refills: 0, Product Selection Permitted - Tramadol 50 mg Oral Tablet - take 1 tablet by ORAL route every 8 hours as needed; 12 tablet; Refills: 0, pm1 Product Selection Permitted Signatures: Dispatcher [employer] Jaime Clark MD MD cha Marinas, Patrick, SAMANTHA SOFTWARE DEVELOPMENT MANAGER pm1 Raz Yanez, RN Blanche Yu wr
[2021-07-05 02:46] VITALS: BP 132/74; TEMP 98.3; O2SAT 100
--- NOTE | 2021-07-05 07:15 | RAD REPORT ---
EXAM DESCRIPTION: RAD - Knee Right 3 View - 07/05/2021 1:17 am CLINICAL HISTORY: PAIN COMPARISON: No comparisons FINDINGS: No acute fracture. No malalignment. Tricompartmental degenerative changes are noted with m oderate lateral compartment, mild medial compartment, and probably moderate patellofemoral compartmen t degenerative changes. IMPRESSION: No acute osseous abnormality involving the right knee.
--- NOTE | 2021-07-05 07:34 | RAD REPORT ---
EXAM DESCRIPTION: US - Extremity Venous Uni Ltd - 07/05/2021 2:09 am CLINICAL HISTORY: Right leg pain COMPARISON: None. TECHNIQUE: Real-time sonographic evaluation of the right lower extremity deep venous system was perf ormed. FINDINGS: Normal compressibility, flow augmentation, phasic flow and spontaneous flow is identified in the right lower extremity deep venous system. No intraluminal filling defects seen. IMPRESSION: No DVT in the right lower extremity.
== END 2021-07-05 02:41 | disposition home or self-care (01) ==
LOC: ER 00:12
DX: M54.31 Sciatica, right side (principal); M25.561 Pain in right knee; I10 Essential (primary) hypertension; E11.9 Type 2 diabetes mellitus without complications
CPT/HCPCS: 93971; 99283

== ENCOUNTER 2021-11-16 07:16 | Observation (INO) | payer OTHER ==
--- OUTSIDE RECORDS SUMMARY | 2021-11-16 07:22 | XMS REPORT | Continuity of Care Document ---
:1970 Author Organization [facility] t Address [address] [place] [address] Care Team Providers Name Role Phone Romero LOZADA, Claudio Primary Care Physician Nicolle OLIVEIRA Attending Clinician Unavailable Codi Arias Attending Clinician Unavailable Bora ROBERTO L Attending Clinician Unavailable ALEJANDRO Attending Clinician Unavailable Only, Db Test Attending Clinician Unavailable Alejandro LOZADA Attending Clinician Doctor Unassigned, Name Attending Clinician Unavailable Claudio Jasso MD Attending Clinician Claudio JASSO Attending Clinician Unavailable SABINE Attending Clinician Unavailable ARGELIA Attending Clinician Unavailable Sabine LOZADA Attending Clinician Brian LOZADA Attending Clinician Argelia LOZADA Attending Clinician C-Arm, Siemens Attending Clinician PREET TRUJILLO Attending Clinician Unavailable Nicolle OLIVEIRA Admitting Clinician Unavailable Codi Arias Admitting Clinician Unavailable Payers Payer Name Policy Type Policy Number Effective Date Expiration Date Dima CARRASQUILLO [id number] [facility] [employer] [place] - [id number] 2020 00:00:00 [facility] Problems Condition Condition Condition Status Onset Resolution Last Treating Co mments Source Name Details Category Date Date Treatment Clinician Date Severe Severe Disease Active 2020-10 Univers obstructiv obstructiv 0-12 it y of e sleep e sleep 00:00: [place] apnea apnea Medical Branch Essential Essential Disease Active 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 7-13 College obesity obesity 00:00: of with body with body 00 [facility] mass index mass index e (BMI) of (BMI) of 50.0 to 50.0 to 59.9 in 59.9 in adult adult (HCCode) (HCCode) Acute deep Acute deep Disease Active [facility] vein vein 6-28 College thrombosis thrombosis 00:00: of (DVT) of (DVT) of 00 Medici n right right e lower lower extremity extremity (HCCode) (HCCode) Morbid Morbid Disease Active [facility] obesity obesity 1-12 College (HCCode) (HCCode) 00:00: of 00 Medicin e Hyperchole Hyperchole Disease Active [facility] sterolemia sterolemia 1-10 Co llege 00:00: of 00 Medicin e Type 2 Type 2 Disease Active [facility] diabetes diabetes 1-10 Colleg e mellitus mellitus 00:00: of 00 Medicin e Osteoarthr Osteoarthr Disease Active [facility] itis of itis of 1-10 College right hip right hip 00:00: of 00 Medicin e Hip pain Hip pain Disease Active [facility] 1-24 [facility] 00:00: of 00 Medicin e Elevated Elevated Disease Active [facility] BP BP 1-24 College 00:00: of 00 Medicin e Bursitis Bursitis Disease Active [facility] of hip, of hip, 1-24 College right right 00:00: of 00 Medicin e Allergies, Adverse Reactions, Alerts Allergy Allergy Status Severity Reaction(s) Onset Inactive Treating Comm ents Source Name Type Date Date Clinician No Known DA Active [facility] Allergie 2-10 [place] [facility] No Known DA Active [facility] Allergie 1-25 [facility] No Known DA Active [facility] Allergie 2- [place] [facility] NO KNOWN Drug Active Univers ALLERGIE Class ity of S [place] [facility] Social History Social Habit Start Date Stop Date Quantity Comments Source Exposure to Not sure [facility] SARS-CoV-2 [place] [facility] (event) Branch History SDOH University o f Alcohol Std [place] [facility] Drinks Branch History SDOH University o f Alcohol Binge [place] [facility] History SDOH University o f Alcohol Comment [place] [facility] Alcohol intake 2021-08-01 2021-08-01 Ex-drinker [facility] Col lege of 00:00:00 00:00:00 (finding) Medicine Tobacco use and 2020-04-12 2020-04-12 Never used [facility] Co llege of exposure 00:00:00 00:00:00 Medicine History SDOH 2019-10-10 2019-10-10 1 University o f Alcohol Frequency 00:00:00 00:00:00 [facility] edical [place] Sex Assigned At [birth year] [facility] Co llege of 00:00:00 00:00:00 Medicine Smoking Status Start Date Stop Date Source Never smoker [facility] Branch Medications Ordered Filled Start Stop Current Ordering Indication Dosage Frequency Signature Comments Components Source Medication Medication Date Date Medication? Clinician (SIG) Name Name dulaglutide Yes [id number] .75mg inject Univers (TRULICITY) 1-14 0.75 mg ity o f 0.75 mg/0.5 00:[place] PnIj 00 skin Medical weekly. Branch dulaglutide Yes [id number] .75mg inject Univers (TRULICITY) 1-14 0.75 mg ity o f 0.75 mg/0.5 00:00: [place] mL PnIj 00 skin Medical weekly. Branch dulaglutide Yes [id number] .75mg inject Univers (TRULICITY) 1-14 0.75 mg ity o f 0.75 mg/0.5 00:00: [place] PnIj 00 skin Medical weekly. Branch dulaglutide Yes [id number] .75mg inject Univers (TRULICITY) 1-14 0.75 mg ity o f 0.75 mg/0.5 00:00: [place] mL PnIj 00 skin Medical weekly. Branch apixaban 2020-10 Yes [id number] 5mg Take 1 Univers (ELIQUIS) 5 2-21 tablet by ity of mg tablet 00:00: mouth 2 (two) Medical times Branch daily. Indication s: blood clot in a deep vein of the extremitie s fluconazole 2020-10 Yes [id number] 100mg Take 1 Univers 100 mg 2-21 tablet by ity of tablet 00:00: mouth [place] 00 daily. Medical Branch apixaban 2020-10 Yes [id number] 5mg Take 1 Univers (ELIQUIS) 5 2-21 tablet by ity of mg tablet 00:00: mouth 2 (two) Medical times Branch daily. Indication s: blood clot in a deep vein of the extremitie s fluconazole 2020-10 Yes [id number] 100mg Take 1 Univers 100 mg 2-21 tablet by ity of tablet 00:00: mouth [place] 00 daily. Medical Branch apixaban 2020-10 Yes [id number] 5mg Take 1 Univers (ELIQUIS) 5 2-21 tablet by ity of mg tablet 00:00: mouth 2 (two) Medical times Branch daily. Indication s: blood clot in a deep vein of the extremitie s fluconazole 2020-10 Yes [id number] 100mg Take 1 Univers 100 mg 2-21 tablet by ity of tablet 00:00: mouth [place] 00 daily. Medical Branch apixaban 2020-10 Yes [id number] 5mg Take 1 Univers (ELIQUIS) 5 2-21 tablet by ity of mg tablet 00:00: mouth 2 00 (two) Medical times Branch daily. Indication s: blood clot in a deep vein of the extremitie s fluconazole 2020-10 Yes [id number] 100mg Take 1 Univers 100 mg 2-21 tablet by ity of tablet 00:00: mouth [place] 00 daily. Medical Branch methylPREDN 2020-10- No [id number] [facility] ISolone 10-01 [facility] acetate 19:00: 18:47 of (DEPO-MEDRO 00 :00 Medicin L) 40 MG/ML e 80 mg, lidocaine 1% (10 mg/mL) 2 mL, bupivacaine (MARCAINE) 0.5 % 2 mL methylPREDN 2020-10- No [id number] [facility] ISolone 10-01 [facility] acetate 19:00: 18:46 of (DEPO-MEDRO 00 :00 Medicin L) 40 MG/ML e 80 mg, lidocaine 1% (10 mg/mL) 2 mL, bupivacaine (MARCAINE) 0.5 % 2 mL methylPREDN 2020-10- No [id number] [facility] 19:00: 18:46 ONCE, 1 of (DEPO-MEDRO 00 :00 dose, On Medi taty L) 40 MG/ML Mon e 80 mg, 08/01/21 at lidocaine 1400 1% (10 mg/mL) 2 mL, bupivacaine (MARCAINE) 0.5 % 2 mL methylPREDN 2020-10- No [id number] [facility] 19:00: 18:47 ONCE, 1 of (DEPO-MEDRO 00 :00 dose, On Medi taty L) 40 MG/ML Mon e 80 mg, 08/01/21 at lidocaine 1400 1% (10 mg/mL) 2 mL, bupivacaine (MARCAINE) 0.5 % 2 mL lisinopriL 2020- Yes [id number] Take one Univers 20 mg 9-26 tablet by ity of tablet 00:00: mouth [place] 00 daily Medical Branch glimepiride 0 Yes [id number] 4mg Take 1 Univers 4 mg tablet 9-26 tablet by ity of 00:00: mouth 2 [place] 00 (two) Medical times Branch daily with meals. metformin 2020-0 Yes [id number] 1000mg Take 2 Univers ER 500 mg 9-26 tablets by ity of 24 hr 00:00: mouth 2 [place] tablet 00 (two) Medical times Branch daily with meals. lisinopriL 2021-0 Yes [id number] Take one Univers 20 mg 9-26 tablet by ity of tablet 00:00: mouth [place] 00 daily Medical Branch glimepiride 2020-0 Yes [id number] 4mg Take 1 Univers 4 mg tablet 9-26 tablet by ity of 00:00: mouth 2 [place] 00 (two) Medical times Branch daily with meals. metformin 2020-0 Yes [id number] 1000mg Take 2 Univers ER 500 mg 9-26 tablets by ity of 24 hr 00:00: mouth 2 [place] tablet 00 (two) Medical times Branch daily with meals. lisinopriL Yes [id number] Take one Univers 20 mg 9-26 tablet by ity of tablet 00:00: mouth [place] 00 daily Medical Branch glimepiride 2020-0 Yes [id number] 4mg Take 1 Univers 4 mg tablet 9-26 tablet by ity of 00:00: mouth 2 [place] 00 (two) Medical times Branch daily with meals. metformin Yes [id number] 1000mg Take 2 Univers ER 500 mg 9-26 tablets by ity of 24 hr 00:00: mouth 2 [place] tablet 00 (two) Medical times Branch daily with meals. lisinopriL 0 Yes [id number] Take one Univers 20 mg 9-26 tablet by ity of tablet 00:00: mouth [place] 00 daily Medical Branch glimepiride 2020-0 Yes [id number] 4mg Take 1 Univers 4 mg tablet 9-26 tablet by ity of 00:00: mouth 2 [place] 00 (two) Medical times Branch daily with meals. metformin 0 Yes [id number] 1000mg Take 2 Univers ER 500 mg 9-26 tablets by ity of 24 hr 00:00: mouth 2 [place] tablet 00 (two) Medical times Branch daily with meals. acetaminoph 0 Yes 1 tab bid [facility] en-codeine 8-24 prn, po Colleg e (TYLENOL 00:00: of #3) 300-30 00 Medicin MG per e tablet methylPREDN 0 2020- No [id number] [facility] ISolone 04-25 College acetate 19:00: 19:09 of (DEPO-MEDRO 00 :00 Medicin L) 40 MG/ML e 80 mg, lidocaine 1% (10 mg/mL) 2 mL, bupivacaine (MARCAINE) 0.5 % 2 mL methylPREDN 2020- No [id number] [facility] ISolone 04-25 [facility] 19:00: 19:08 of (DEPO-MEDRO 00 :00 Medicin L) 40 MG/ML e 80 mg, lidocaine 1% (10 mg/mL) 2 mL, bupivacaine (MARCAINE) 0.5 % 2 mL methylPREDN 2020- No [id number] Intra-[facility] ISolone 04-25 [facility] 19:00: 19:08 ONCE, 1 of (DEPO-MEDRO 00 :00 dose, On Medi taty L) 40 MG/ML Mon e 80 mg, 04/25/21 at lidocaine 1400 1% (10 mg/mL) 2 mL, bupivacaine (MARCAINE) 0.5 % 2 mL methylPREDN 2020- No [id number] Intra-[facility] ISolone 04-25 [facility] 19:00: 19:09 ONCE, 1 of (DEPO-MEDRO 00 :00 dose, On Medi taty L) 40 MG/ML Mon e 80 mg, 04/25/21 at lidocaine 1400 1% (10 mg/mL) 2 mL, bupivacaine (MARCAINE) 0.5 % 2 mL atorvastati Yes [id number] 20mg Take 1 Univers n 20 mg 5-24 tablet by ity of tablet 00:00: mouth at [place] [address] bedtime. Medical Branch atorvastati Yes [id number] 20mg Take 1 Univers n 20 mg 5-24 tablet by ity of tablet 00:00: mouth at [place] [address] bedtime. Medical Branch atorvastati Yes [id number] 20mg Take 1 Univers n 20 mg 5-24 tablet by ity of tablet 00:00: mouth at [place] [address] bedtime. Medical Branch atorvastati Yes [id number] 20mg Take 1 Univers n 20 mg 5-24 tablet by ity of tablet 00:00: mouth at [place] [address] bedtime. Medical Branch traMADoL 50 Yes TAKE 1 Univ ers mg tablet 5-05 TABLET BY ity o f 00:00: MOUTH [place] 00 EVERY 8 Medical HOURS Branch NEEDED traMADoL 50 Yes TAKE 1 Univ ers mg tablet 5-05 TABLET BY ity o f 00:00: MOUTH 00 EVERY 8 Medical HOURS Branch NEEDED traMADoL 50 Yes TAKE 1 Univ ers mg tablet 5-05 TABLET BY ity o f 00:00: MOUTH 00 EVERY 8 Medical HOURS Branch NEEDED traMADoL 50 Yes TAKE 1 Univ ers mg tablet 5-05 TABLET BY ity o f 00:00: MOUTH 00 EVERY 8 Medical HOURS Branch NEEDED tramadol Yes TAKE 1 [facility] (ULTRAM) 50 5-05 TABLET BY Col lege MG tablet 00:00: MOUTH of 00 EVERY 8 Medicin HOURS e NEEDED tramadol Yes TAKE 1 [facility] (ULTRAM) 50 5-05 TABLET BY Col lege MG tablet 00:00: MOUTH of 00 EVERY 8 Medicin HOURS e NEEDED tramadol Yes TAKE 1 [facility] (ULTRAM) 50 5-05 TABLET BY Col lege MG tablet 00:00: MOUTH of 00 EVERY 8 Medicin HOURS e NEEDED methylPREDN 2020- No [id number] [facility] [place] acetate 17:30: 17:25 of (DEPO-MEDRO 00 :00 Medicin L) 40 MG/ML e 80 mg, lidocaine 1% (10 mg/mL) 2 mL, bupivacaine (MARCAINE) 0.5 % 2 mL methylPREDN 2020- No [id number] Intra-[facility] 12-13 [facility] acetate 17:30: 17:25 ONCE, 1 of (DEPO-MEDRO 00 :00 dose, Mon Med icin L) 40 MG/ML 12/13/20 at e 80 mg, 1230 lidocaine 1% (10 mg/mL) 2 mL, bupivacaine (MARCAINE) 0.5 % 2 mL gabapentin Yes 1-2 tabs, Un [facility] 300 mg 2-10 po bid ity of capsule 00:00: Medical Branch gabapentin 2020-0 Yes 1-2 tabs, Un [facility] 300 mg 2-10 po bid ity of capsule 00:00: Medical Branch gabapentin 2020-0 Yes 1-2 tabs, Un [facility] 300 mg 2-10 po bid ity of capsule 00:00: [place] 00 Medical Branch gabapentin 2020-0 Yes 1-2 tabs, Un [facility] 300 mg 2-10 po bid ity of capsule 00:00: [address] Branch gabapentin 2020-0 Yes 1-2 tabs, [facility] (NEURONTIN) 2-10 po bid Colleg e 300 MG 00:00: of capsule 00 Medicin e gabapentin 0 Yes 1-2 tabs, [facility] (NEURONTIN) 2-10 po bid Colleg e 300 MG 00:00: of capsule 00 Medicin e gabapentin 0 Yes 1-2 tabs, [facility] (NEURONTIN) 2-10 po bid Colleg e 300 MG 00:00: of capsule 00 Medicin e gabapentin Yes 1-2 tabs, [facility] (NEURONTIN) 2-10 po bid Colleg e 300 MG 00:00: of capsule 00 Medicin e iohexol 2020- No [id number] 3mL [facility] (OMNIPAQUE) 11-02 91 College 300 MG/ML 21:15: 21:00 of injection 3 00 :00 Medicin mL e triamcinolo 2020- No [id number] [facility] 11-02 91 [place] acetonide 21:15: 21:01 of (KENALOG-40 00 :00 Medicin ) 40 mg/mL e 40 mg, lidocaine 1% (10 mg/mL) 3 mL triamcinolo 2020- No [id number] [facility]:15[facility] 21:01 ONCE, 1 of (KENALOG-40 00 :00 dose, Tue Med icin ) 40 mg/mL 11/02/20 at e 40 mg, 1515 lidocaine 1% (10 mg/mL) 3 mL iohexol 2020- No [id number] 3mL 3 mL, [facility] (OMNIPAQUE) 11-02 91 Intra-dominick C ollege 300 MG/ML 21:15: 21:00 cular, of injection 3 00 :00 ONCE, 1 Medic in mL dose, Tue e 11/02/20 at 1515 Sitagliptin 2019-0 Yes 100mg Take 100 [facility] Phosphate 6-26 mg by College ([facility]) 00:00: mouth. of 100 MG TABS 00 Medicin e Apixaban 2020-0 Yes 5mg Take 5 mg [facility] (ELIQUIS) 5 6-26 by mouth. Col lege MG TABS 00:00: of 00 Medicin e Sitagliptin 2020-0 Yes 100mg Take 100 [facility] Phosphate 6-26 mg by College ([facility]) 00:00: mouth. of 100 MG TABS 00 Medicin e Apixaban 2020-0 Yes 5mg Take 5 mg [facility] (ELIQUIS) 5 6-26 by mouth. Col lege MG TABS 00:00: of 00 Medicin e Sitagliptin 2020-0 Yes 100mg Take 100 [facility] Phosphate 6-26 mg by College ([facility]) 00:00: mouth. of 100 MG TABS 00 Medicin e Apixaban 2020-0 Yes 5mg Take 5 mg [facility] (ELIQUIS) 5 6-26 by mouth. Col lege MG TABS 00:00: of 00 Medicin e Sitagliptin 2020-0 Yes 100mg Take 100 [facility] Phosphate 6-26 mg by College ([facility]) 00:00: mouth. of 100 MG TABS 00 Medicin e Apixaban 2020-0 Yes 5mg Take 5 mg [facility] (ELIQUIS) 5 6-26 by mouth. Col lege MG TABS 00:00: of 00 Medicin e Sitagliptin 2020-0 Yes 100mg Take 100 [facility] Phosphate 6-26 mg by College ([facility]) 00:00: mouth. of 100 MG TABS 00 Medicin e Apixaban 2020-0 Yes 5mg Take 5 mg [facility] (ELIQUIS) 5 6-26 by mouth. Col lege MG TABS 00:00: of 00 Medicin e Sitagliptin 2020-0 Yes 100mg Take 100 [facility] Phosphate 6-26 mg by College ([facility]) 00:00: mouth. of 100 MG TABS 00 Medicin e Apixaban 2020-0 Yes 5mg Take 5 mg [facility] (ELIQUIS) 5 6-26 by mouth. Col lege MG TABS 00:00: of 00 Medicin e acetaminoph 2020-0 Yes TK 1 OR 2 U nivers en-codeine 6-21 TS PO Q 6 ity of 300-30 mg 00:00: H PRN P [place] tablet 00 Medical Branch acetaminoph 2020-0 Yes TK 1 OR 2 U nivers en-codeine 6-21 TS PO Q 6 ity of 300-30 mg 00:00: H PRN P [place] tablet 00 Medical Branch acetaminoph 2020-0 Yes TK 1 OR 2 U nivers en-codeine 6-21 TS PO Q 6 ity of 300-30 mg 00:00: H PRN P [place] tablet 00 Medical Branch acetaminoph 2020-0 Yes TK 1 OR 2 U nivers en-codeine 6-21 TS PO Q 6 ity of 300-30 mg 00:00: H PRN P [place] tablet 00 Medical Branch amlodipine- 2020-0 Yes 1{capsu Take 1 Cap [facility] benazepril 2-21 le} by mouth. Ming [facility] (LOTREL) 00:00: of 5-10 MG per 00 Medicin capsule e amlodipine- 2020-0 Yes 1{capsu Take 1 Cap [facility] benazepril 2-21 le} by mouth. Ming [facility] (LOTREL) 00:00: of 5-10 MG per 00 Medicin capsule e amlodipine- 2020-0 Yes 1{capsu Take 1 Cap [facility] benazepril 2-21 le} by mouth. Ming e[facility] (LOTREL) 00:00: of 5-10 MG per 00 Medicin capsule e amlodipine- 2020-0 Yes 1{capsu Take 1 Cap [facility] benazepril 2-21 le} by mouth. Ming e[facility] (LOTREL) 00:00: of 5-10 MG per 00 Medicin capsule e amlodipine- 2020-0 Yes 1{capsu Take 1 Cap [facility] benazepril 2-21 le} by mouth. [facility] (LOTREL) 00:00: of 5-10 MG per 00 Medicin capsule e amlodipine- 2020-0 Yes 1{capsu Take 1 Cap [facility] benazepril 2-21 le} by mouth. Ming e[facility] (LOTREL) 00:00: of 5-10 MG per 00 Medicin capsule e atorvastati 2020-0 Yes 20mg Take 20 mg [facility] n (LIPITOR) 1-29 by mouth. Col lege 20 MG 00:00: of tablet 00 Medicin e atorvastati 2020-0 Yes 20mg Take 20 mg [facility] n (LIPITOR) 1-29 by mouth. Col lege 20 MG 00:00: of tablet 00 Medicin e atorvastati 2020-0 Yes 20mg Take 20 mg [facility] n (LIPITOR) 1-29 by mouth. Col lege 20 MG 00:00: of tablet 00 Medicin e atorvastati 2020-0 Yes 20mg Take 20 mg [facility] n (LIPITOR) 1-29 by mouth. Col lege 20 MG 00:00: of tablet 00 Medicin e atorvastati 2020-0 Yes 20mg Take 20 mg [facility] n (LIPITOR) 1-29 by mouth. Col lege 20 MG 00:00: of tablet 00 Medicin e atorvastati 2020-0 Yes 20mg Take 20 mg [facility] n (LIPITOR) 1-29 by mouth. Col lege 20 MG 00:00: of tablet 00 Medicin e Immunizations Ordered Filled Immunization Date Status Comments [facility] e Immunization Name Name SARS-COV-2 COVID-19 2021-07-15 Completed Unive rsity of PFIZER VACCINE 00:00:00 [facility] SARS-COV-2 COVID-19 2021-07-15 Completed Unive rsity of PFIZER VACCINE 00:00:00 [facility] SARS-COV-2 COVID-19 2021-07-15 Completed Unive rsity of PFIZER VACCINE 00:00:00 [facility] SARS-COV-2 COVID-19 2021-07-15 Completed Unive rsity of PFIZER VACCINE 00:00:00 [facility] SARS-COV-2 COVID-19 2021-06-24 Completed Unive rsity of PFIZER VACCINE 00:00:00 [facility] SARS-COV-2 COVID-19 2021-06-24 Completed Unive rsity of PFIZER VACCINE 00:00:00 [facility] SARS-COV-2 COVID-19 2021-06-24 Completed Unive rsity of PFIZER VACCINE 00:00:00 [facility] SARS-COV-2 COVID-19 2021-06-24 Completed Unive rsity of PFIZER VACCINE 00:00:00 [facility] Vital Signs Vital Name Observation Time Observation Value Comments Source Body height 2021-08-01 18:10:00 160 cm [facility] Body weight 2021-08-01 18:10:00 136.079 kg [facility] BMI 2021-08-01 18:10:00 53.14 kg/m2 [facility] Body height 2021-04-25 18:47:00 160 cm [facility] Body weight 2021-04-25 18:47:00 135.172 kg [facility] BMI 2021-04-25 18:47:00 52.79 kg/m2 [facility] Systolic blood 2021-02-10 16:08:00 153 mm[Hg] [facility] pressure Medicine Diastolic blood 2021-02-10 16:08:00 87 mm[Hg] [facility] pressure Medicine Heart rate 2021-02-10 15:54:00 96 /min [facility] ollege of Medicine Respiratory rate 2021-02-10 15:54:00 16 /min [facility] Body height 2021-02-10 15:54:00 160 cm [facility] Medicine Body weight 2021-02-10 15:54:00 135.172 kg [facility] ol[facility] of Medicine BMI 2021-02-10 15:54:00 52.79 kg/m2 [facility] ol[facility] of Medicine Oxygen saturation in 2021-02-10 15:54:00 96 /min [facility] Arterial blood by Medicine Pulse oximetry Systolic blood 2021-02-10 16:08:00 153 mm[Hg] [facility] pressure Medicine Diastolic blood 2021-02-10 16:08:00 87 mm[Hg] [facility] of pressure Medicine Heart rate 2021-02-10 15:54:00 96 /min [facility] ol[facility] of Medicine Respiratory rate 2021-02-10 15:54:00 16 /min [facility] Body height 2021-02-10 15:54:00 160 cm [facility] Medicine Body weight 2021-02-10 15:54:00 135.172 kg [facility] ol[facility] of Medicine BMI 2021-02-10 15:54:00 52.79 kg/m2 [facility] ol[facility] of Medicine Oxygen saturation in 2021-02-10 15:54:00 96 /min [facility] Arterial blood by [facility] Pulse oximetry Systolic blood 2020-12-13 16:46:00 134 mm[Hg] [facility] pressure Medicine Diastolic blood 2020-12-13 16:46:00 77 mm[Hg] [facility] pressure Medicine Heart rate 2020-12-13 16:46:00 92 /min [facility] of Medicine Body height 2020-12-13 16:46:00 160 cm [facility] Body weight 2020-12-13 16:46:00 129.729 kg [facility] Medicine BMI 2020-12-13 16:46:00 50.66 kg/m2 [facility] of Medicine Systolic blood 2020-12-13 16:46:00 134 mm[Hg] [facility] pressure Medicine Diastolic blood 2020-12-13 16:46:00 77 mm[Hg] [facility] pressure Medicine Heart rate 2020-12-13 16:46:00 92 /min [facility] of Medicine Body height 2020-12-13 16:46:00 160 cm [facility] Body weight 2020-12-13 16:46:00 129.729 kg [facility] BMI 2020-12-13 16:46:00 50.66 kg/m2 [facility] Body height 2020-04-12 15:08:00 160 cm [facility] Body weight 2020-04-12 15:08:00 131.09 kg [facility] BMI 2020-04-12 15:08:00 51.19 kg/m2 [facility] Body height 2020-04-12 15:08:00 160 cm [facility] Body weight 2020-04-12 15:08:00 131.09 kg [facility] BMI 2020-04-12 15:08:00 51.19 kg/m2 [facility] Procedures Procedure Date / Time Performing Clinician Source Performed MEDICATION CORRESPONDENCE 2021-10-21 06:01:00 Doctor Unassigned, [facility] [place] [facility] Plan of Care Planned Activity Planned Date Details Comments Source Future Scheduled 2021-08-01 BRACE [code = NOCPT] Ordered: [facility] Test 13:54:56 08/01/2021 of Medicine Future Scheduled 2021-08-01 Hemoglobin A1c [facility] Co [facility]lege Test 13:25:48 measurement (procedure) of Delmi beltre [code = 05018803] Future Scheduled 2021-08-01 Screening for malignant [facility] Test 13:25:48 neoplasm of colon of Medicin e (procedure) [code = 477815025] Future Scheduled 2021-08-01 Screening for malignant [facility] Test 13:25:48 neoplasm of breast of Medici ne (procedure) [code = 835542179] Future Scheduled 2021-08-01 TETANUS SHOT (ADULT) [facility] Test 13:25:48 [code = TETANUS SHOT of Medi cine (ADULT)] Future Scheduled 2021-08-01 Diabetic foot [facility] Col [facility]ge Test 13:25:48 examination of Medicine (regime/therapy) [code = 369476481] Future Scheduled 2021-08-01 ANNUAL DIABETIC [facility] C [facility]lege Test 13:25:48 RETINOPATHY SCREENING of Med icine [code = ANNUAL DIABETIC RETINOPATHY SCREENING] Future Scheduled 2021-08-01 BMI FOLLOW UP PLAN [facility] Test 13:25:48 [code = BMI FOLLOW UP of Med icine PLAN] Future Scheduled 2021-08-01 Hepatitis C screening [facility] Test 13:25:48 (procedure) [code = of Medic ine [id number]] Future Scheduled 2021-08-01 Human immunodeficiency [facility] Test 13:25:48 virus screening of Medicine (procedure) [code = 541339530] Future Scheduled 2021-08-01 Screening for malignant [facility] Test 13:25:48 neoplasm of cervix of Medici ne (procedure) [code = 016373418] Future Scheduled 2021-08-01 ZOSTER VACCINE (1 of 2) [facility] Test 13:25:48 [code = ZOSTER VACCINE of Me dicine (1 of 2)] Future Scheduled 2021-04-25 NE BELT STRAP SLEEV Ordered: [employer] Test 14:20:45 GRMNT COVER [code = 04/25/2021 of Medic ine A4467] Future Scheduled 2021-04-25 Hemoglobin A1c [facility] Test 08:31:10 measurement (procedure) of M edicine [code = 03015903] Future Scheduled 2021-04-25 Screening for malignant [facility] Test 08:31:10 neoplasm of colon of Medicin e (procedure) [code = 825925024] Future Scheduled 2021-04-25 Screening for malignant [facility] Test 08:31:10 neoplasm of breast of Medici ne (procedure) [code = 026210135] Future Scheduled 2021-04-25 COVID-19 Vaccine (1) [facility] Test 08:31:10 [code = COVID-19 of Medicine Vaccine (1)] Future Scheduled 2021-04-25 TETANUS SHOT (ADULT) [employer] Test 08:31:10 [code = TETANUS SHOT of Medi cine (ADULT)] Future Scheduled 2021-04-25 Diabetic foot [facility] Test 08:31:10 examination of Medicine (regime/therapy) [code = 308554532] Future Scheduled 2021-04-25 ANNUAL DIABETIC [facility] Test 08:31:10 RETINOPATHY SCREENING of Med icine [code = ANNUAL DIABETIC RETINOPATHY SCREENING] Future Scheduled 2021-04-25 BMI FOLLOW UP PLAN [facility] Test 08:31:10 [code = BMI FOLLOW UP of Med icine PLAN] Future Scheduled 2021-04-25 Hepatitis C screening [facility] Test 08:31:10 (procedure) [code = of Medic ine 542385883] Future Scheduled 2021-04-25 Human immunodeficiency [facility] Test 08:31:10 virus screening of Medicine (procedure) [code = 476341822] Future Scheduled 2021-04-25 Screening for malignant [facility] Test 08:31:10 neoplasm of cervix of Medici ne (procedure) [code = 657391667] Future Scheduled 2021-04-25 ZOSTER VACCINE (1 of 2) [facility] [employer] Test 08:31:10 [code = ZOSTER VACCINE of Me dicine (1 of 2)] Future Scheduled 2021-02-10 Hemoglobin A1c [facility] Test 11:33:49 measurement (procedure) of M edicine [code = 65220349] Future Scheduled 2021-02-10 Screening for malignant [facility] Test 11:33:49 neoplasm of breast of Medici ne (procedure) [code = 008004541] Future Scheduled 2021-02-10 COVID-19 Vaccine (1) [facility] Test 11:33:49 [code = COVID-19 of Medicine Vaccine (1)] Future Scheduled 2021-02-10 TETANUS SHOT (ADULT) [employer] Test 11:33:49 [code = TETANUS SHOT of Medi cine (ADULT)] Future Scheduled 2021-02-10 Diabetic foot [facility] Test 11:33:49 examination of Medicine (regime/therapy) [code = 592522873] Future Scheduled 2021-02-10 ANNUAL DIABETIC [facility] Test 11:33:49 RETINOPATHY SCREENING of Med icine [code = ANNUAL DIABETIC RETINOPATHY SCREENING] Future Scheduled 2021-02-10 BMI FOLLOW UP PLAN [facility] Test 11:33:49 [code = BMI FOLLOW UP of Med icine PLAN] Future Scheduled 2021-02-10 Hepatitis C screening [facility] Test 11:33:49 (procedure) [code = of Medic ine 289396532] Future Scheduled 2021-02-10 Human immunodeficiency [facility] Test 11:33:49 virus screening of Medicine (procedure) [code = 926540801] Future Scheduled 2021-02-10 Screening for malignant [facility] Test 11:33:49 neoplasm of cervix of Medici ne (procedure) [code = 994351123] Future Scheduled 2021-02-10 ZOSTER VACCINE (1 of 2) [facility] Test 11:33:49 [code = ZOSTER VACCINE of Me dicine (1 of 2)] Future Scheduled ORT - XR PELVIS AP Ordered: [employer] [facility] (CHARGE ONLY) [code = 04/12/2020 of Med icine 60855] Future Scheduled ORT - XR HIP RIGHT 2V Ordered: [employer] (CHARGE ONLY) [code = 04/12/2020 of Med icine 71600] Future Scheduled MAMMOGRAM ANNUAL [facility] MAM[facility]] of Medic ine Future Scheduled TETANUS SHOT (ADULT) [employer] [facility] [code = TETANUS SHOT of Medi cine (ADULT)] Future Scheduled HIV SCREENING [code = [employer] [facility] HIV SCREENING] of Medicine Future Scheduled CERVICAL CANCER [facility] Test SCREENING 3 YEAR FOLLOW of M edicine UP [code = CERVICAL CANCER SCREENING 3 YEAR FOLLOW UP] Future Scheduled FLU VACCINE > 6 MONTHS [facility] [code = FLU VACCINE > 6 of M edicine MONTHS] Future Scheduled COVID-19 Vaccine [facility] Test Evaluation [code = of Medici ne COVID-19 Vaccine Evaluation] Future Scheduled MAMMOGRAM ANNUAL [code [facility] = MAMMOGRAM ANNUAL] of Medic ine Future Scheduled TETANUS SHOT (ADULT) [employer] Test [code = TETANUS SHOT of Medi cine (ADULT)] Future Scheduled Diabetic foot [facility] Test examination of Medicine (regime/therapy) [code = 294176138] Future Scheduled ANNUAL DIABETIC [facility] Test RETINOPATHY SCREENING of Med icine [code = ANNUAL DIABETIC RETINOPATHY SCREENING] Future Scheduled BMI FOLLOW UP PLAN [employer] Test [code = BMI FOLLOW UP of Med icine PLAN] Future Scheduled HEPATITIS C SCREENING [employer] Test [code = HEPATITIS C of Medic ine SCREENING] Future Scheduled HIV SCREENING [code = [employer] [facility] HIV SCREENING] of Medicine Future Scheduled CERVICAL CANCER [facility] Test SCREENING 3 YEAR FOLLOW of M edicine UP [code = CERVICAL CANCER SCREENING 3 YEAR FOLLOW UP] Future Scheduled FLU VACCINE > 6 MONTHS [employer] Test [code = FLU VACCINE > 6 of M edicine MONTHS] Future Scheduled ZOSTER VACCINE (1 of 2) [facility] Test [code = ZOSTER VACCINE of In dicine (1 of 2)] Future Scheduled ORT - XR HIP RIGHT 2V Ordered: [employer] [facility] (CHARGE ONLY) [code = 12/13/2020 of Med icine 11516] Future Scheduled ORT - XR KNEE RIGHT 4V Ordered: [employer] (CHARGE ONLY) [code = 12/13/2020 of Med icine 85847] Future Scheduled ORT - XR PELVIS AP Ordered: [employer] (CHARGE ONLY) [code = 12/13/2020 of Med icine 89624] Future Scheduled Screening for malignant [facility] Test neoplasm of breast of Medici ne (procedure) [code = 396948295] Future Scheduled TETANUS SHOT (ADULT) [employer] Test [code = TETANUS SHOT of Medi cine (ADULT)] Future Scheduled COVID-19 Vaccine (1) [employer] Test [code = COVID-19 of Medicine Vaccine (1)] Future Scheduled Diabetic foot [facility] Test examination of Medicine (regime/therapy) [code = 307277561] Future Scheduled ANNUAL DIABETIC [facility] Test RETINOPATHY SCREENING of Med icine [code = ANNUAL DIABETIC RETINOPATHY SCREENING] Future Scheduled BMI FOLLOW UP PLAN [employer] Test [code = BMI FOLLOW UP of Med icine PLAN] Future Scheduled Hepatitis C screening [employer] [facility] (procedure) [code = of Medic ine 039305923] Future Scheduled Human immunodeficiency [facility] Test virus screening of Medicine (procedure) [code = 471907797] Future Scheduled Screening for malignant [facility] Test neoplasm of cervix of Medici ne (procedure) [code = 609678018] Future Scheduled ZOSTER VACCINE (1 of 2) [facility] Test [code = ZOSTER VACCINE of Me dicine (1 of 2)] Encounters Start End Encounter Admission Attending Care Care Encounter Source Date/Time Date/Time Type Type Clinicians Facility Department ID 2019-12-18 Inpatient Kim [facility] [id number] [facility] 08:00:00 [facility] 2019-12-18 Inpatient Kim [facility] [id number] [facility] 07:00:00 [facility] 2021-11-10 2021-11-11 Inpatient EL Hugo, HCATO SURG [id number] [facility] 07:12:00 15:10:00 [place] [id number] [facility] 2021-11-10 2021-11-11 Inpatient EL Saloreza, HCATO SURG [id number] [facility] 07:12:00 15:10:00 [place] [facility] 2021-11-08 2021-11-08 Telephone KARINE Sahni [id number] [id number] [facility] 00:00:00 00:00:00 Gavin BURROUGHS 350.1.13.10 ity [facility] 4.2.7.2.686 Jeanmarie as [phone] [address] 2021-11-07 2021-11-07 Outpatient Victoria ALLEN [facility] [id number] [facility] 16:00:00 16:19:23 KERRY ity [facility] 2021-11-07 2021-11-07 Laboratory Only, Ang Db Test [facility] 1.[facility].8 40.114 [id number] Univers 16:00:00 16:15:00 Only Kerry Allen [facility] 4.2.7.2.686 Jeanmarie as ASHLEY?BLEA [phone] In quinten MCCLELLAN [address] [place] [facility] 2021-11-07 2021-11-07 Outpatient R [facility] [id number] Univers 16:00:00 16:00:00 [id number] ity of [facility] 2021-10-25 2021-10-25 Outpatient Hugo, HCACL LABO [id number] [facility] 15:03:00 15:03:00 [place] [id number] [place] [address] 2021-10-25 2021-10-25 Outpatient Hugo, HCAWU REFE [id number] [facility] 13:37:00 13:37:[address] 2021-10-21 2021-10-21 Orders Doctor KARINE 1.2.840.114 [id number] [facility] 00:00:00 00:00:00 Only Unassigned, MANJEET 350.1.13.10 ity of [place] [facility] 4.2.7.2.686 Jeanmarie as [phone] [address] 2021-10-19 2021-10-19 [facility] 1.2.840.114 [id number] Univers 00:00:00 00:00:00 Wondiful [facility] 350.1.13.10 ity of [place] 4.2.7.2.686 Jeanmarie as ASHLEY?BLEA [phone] In quinten [facility] [address] [place] MEDICAL OFFICE [facility] 2021-10-14 2021-10-14 [facility] [id number] Univers 13:15:00 14:09:09 WONDIFUL ity o f [facility] 2021-08-01 2021-08-01 Office SALVATORE REGLAADO 1.2.840.114 [id number] [facility] 12:58:14 14:42:58 Visit CRISTOBAL AMBULATOR 350.1.13.21 College Y 0.2.7.2.686 of [phone] [facility] taty 600 e 2021-05-23 2021-05-23 Outpatient WALTER STOUT [facility] [id number] [facility] 16:57:34 16:57:44 Colleg sheila of Medicin e 2021-04-25 2021-04-25 Office Sabine [facility] 1.2.840.114 [id number] [facility] 13:22:24 14:20:23 Visit Cristobal AMBULATOR 350.1.13.21 College Y 0.2.7.2.686 of [id number] Medi taty 600 e 2021-03-22 2021-03-22 [facility] 1.2.840.114 [id number] 00:00:00 00:00:00 Wondiful [facility] 350.1.13.10 [place] 4.2.7.2.686 Professio [phone] [place] [address] Office [facility] 2021-03-18 2021-03-18 [facility] 1.2.840.114 [id number] 00:00:00 00:00:00 Wondiful [facility] 350.1.13.10 [place] 4.2.7.2.686 Professio [phone] [place] [address] Office [facility] 2021-03-14 2021-03-14 Telephone [facility] 1.2.840.114 [id number] 00:00:00 00:00:00 Wondiful [facility] 350.1.13.10 [place] 4.2.7.2.686 Professio [phone] [place] [address] Office [facility] 2021-03-14 2021-03-14 Orders Doctor KARINE 1.2.840.114 [id number] 00:00:00 00:00:00 Only Unassigned, MANJEET 350.1.13.10 [place] [facility] 4.2.7.2.686 [id number] 009 2021-02-18 2021-02-18 Outpatient WALTER STOUT [facility] [id number] [facility] 10:54:05 15:55:30 Marycarmen sosa of Medicin e 2021-02-10 2021-02-10 Office Hector Torres [facility] 1.2.840.114 [id number] 10:45:58 11:25:58 Visit AMBULATOR 350.1.13.21 Y 0.2.7.2.686 [id number] 800 2021-02-10 2021-02-10 Office Hector Torres [facility] 1.2.840.114 [id number] [facility] 10:45:58 11:25:58 Visit AMBULATOR 350.1.13.21 College Y 0.2.7.2.686 of [id number] Medi taty 800 e 2020-12-13 2020-12-13 Office SALVATORE Regalado 1.2.840.114 [id number] 11:42:08 12:58:05 Visit Cristobal AMBULATOR 350.1.13.21 Y 0.2.7.2.686 [id number] 600 2020-12-13 2020-12-13 Office MARIELY Regalado 1.2.840.114 [id number] [facility] 11:42:08 12:58:05 Visit Cristobal AMBULATOR 350.1.13.21 College Y 0.2.7.2.686 of [id number] [facility] taty 600 e 2020-11-02 2020-11-02 Office Walter Stout [facility] 1.2.840.114 [id number] 14:01:11 14:41:11 Visit C-Arm, Pmr Siem[employer] AMBULATOR 350.1.13. 21 Y 0.2.7.2.686 [id number] 800 2020-11-02 2020-11-02 Office Walter Stout [facility] 1.2.840.114 [id number] [facility] 14:01:11 14:41:11 Visit C-Arm, Pmr [employer] AMBULATOR 350.1.13. 21 College Y 0.2.7.2.686 of [id number] [facility] taty 800 e 2020-04-12 2020-04-12 Office SALVATORE Regalado 1.2.840.114 [id number] 10:02:20 10:55:55 Visit Cristobal AMBULATOR 350.1.13.21 Y 0.2.7.2.686 [id number] 600 2020-04-12 2020-04-12 Office SALVATORE Regalado 1.2.840.114 75 [id number] [facility] 10:02:20 10:55:55 Visit Cristobal AMBULATOR 350.1.13.21 College Y 0.2.7.2.686 of [id number] [facility] 600 e 2020-03-19 2020-03-20 Emergency E MOHAMED, MHBL MHBL 7500 MHBL 23:20:00 05:33:00 ABDIWAHAB Results Test Description Test Time Test Comments Results Result Comments Source GLUBED 2021-11-11 11:31:00 Test Item Value Reference Range Interpretation Comme nts GLUBED (test code = GLUBED) 287 mg/dL 60-125 H BASIC METABOLIC [id number] 07:13:00 Test Item Value Reference Range Interpretation Comments SODIUM (test code = 137 mmol/L 136-145 N NA) POTASSIUM (test code = 4.9 mmol/L 3.5-5.1 N K) CHLORIDE (test code = 102.0 mmol/L 98-107 N CL) CARBON DIOXIDE (test 25.6 mmol/L 21-32 N code = CO2) GLUCOSE (test code = 235 mg/dL 70-110 H GLU) BLOOD UREA NITROGEN 19 mg/dL 7-18 H (test code = BUN) GLOMERULAR FILTRATION 66.5 >60 Unit o f measure: RATE (test code = GFR) mL/mi n/1.73 [id number] Range:Healthy Adults >90 mL/min/1.73 m2 For Chronic Kidney Disease: St age II Mild Decrease in GFR 60-90 St age III Moderate Decrease in GFR 30-59 Stage IV Severe Decre ase in GFR 15- 29 Stage V Kidney Failure <15 CREATININE (test code 1.06 mg/dL 0.55-1.30 N = CREAT) CALCIUM (test code = 7.7 mg/dL 8.2-10.1 L CA) SPECIMEN COMMENT: POD #[id number] 06:05:00 Test Item Value Reference Range Interpretation Comments HEMOGLOBIN (test code = HGB) 9.7 g/dL 12-16 L HEMATOCRIT (test code = HCT) 31.5 % 37-47 L SPECIMEN COMMENT: POD #[id number] 05:47:00 Test Item Value Reference Range Interpretation Comments GLUBED (test code = GLUBED) 210 mg/dL 60-125 H [id number] 20:24:00 Test Item Value Reference Range Interpretation Comments GLUBED (test code = GLUBED) 236 mg/dL 60-125 H [id number] 17:47:00 Test Item Value Reference Range Interpretation Comments GLUBED (test code = GLUBED) 165 mg/dL 60-125 H - XR PELVIS 1/2 [id number] 16:42:00 [facility] 1970 Sex: F Patient Name: KATERYNA SAMSON Unit No: [id number] EXAMS: CPT CODE: [id number] XR PELVIS 1/2 VIEWS 66332 INTRAOPERATIVE LEG LENGTH FILM COMMENT: COMPARISON: No prior exams available. In progress right hip replacement is noted. AP portable right hip COMMENT: The patient is status post joint replacement which is articulating normally. at 1642 Reported and signed by: Mario Samaniego MD CC: Papi Arias II, MD Technologist: PANCHO BENITEZ (RT.R) Transcribed D/ (1641) [facility] NAME:KATERYNA SAMSON [address] [facility] PHYS: Papi Norton II, MD : 1970 AGE: 51 SEX: F [place], [place] [address] LOC: Y.O25 A PHONE #: [phone] EXAM DATE: 11/10/2021 STATUS: ADM IN FAX #: [phone] RAD #: D/C DT PAGE 1 Signed Report Patient Name: KATERYNA SAMSON Unit No: [id number] EXAMS: CPT CODE: [id number] XR PELVIS 1/2 VIEWS 03358 <Continued> Orig Print D/T: S: 11/10/2021 (1645) [facility] NAME: KATERYNA SAMSON [address] [address] PHYS: Papi Norton II, MD : 1970 AGE: 51 SEX: F [place] [address] : Y.O25 A PHONE #: [phone] EXAM DATE: 11/10/2021 STATUS: ADM IN FAX #: [phone] RAD #: D/C DT PAGE 2 Signed Report- XR PELVIS 1/2 [id number] 16:42:[address] [facility] : 1970 Sex: F Patient Name: KATERYNA SAMSON Unit No: [id number] EXAMS: CPT CODE: [id number] XR PELVIS 1/2 VIEWS 79436 INTRAOPERATIVE LEG LENGTH FILM COMMENT: COMPARISON: No prior exams available. In progress right hip replacement is noted. AP portable right hip COMMENT: The patient is status post joint replacement which is articulating normally. at 1642 Reported and signed by: Mario Samaniego MD CC: Papi Arias II, MD Technologist: PANCHO BENITEZ (RT.R) Transcribed D/ (1641) tMAYELINResolute Health Hospital NAME:KATERYNA SAMSON [address] [facility] [address] PHYS: Papi Norton II, MD : 1970 AGE: 51 SEX: F [place] [address] LOC: Y.O25 A PHONE #: [phone] EXAM DATE: 11/10/2021 STATUS: ADM IN FAX #: [phone] RAD #: D/C DT PAGE 1 Signed Report Patient Name: KATERYNA SAMSON Unit No: [id number] EXAMS: CPT CODE: [id number] XR PELVIS 1/2 VIEWS 71198 <Continued> Orig Print D/T: S: 11/10/2021 (1646) [facility] NAME: KATERYNA SAMSON [address] PHYS: Papi Norton II, MD : 1970 AGE: 51 SEX: F [place], [place] [address] : Y.O25 A PHONE #: [phone] EXAM DATE: 11/10/2021 STATUS: ADM IN FAX #: [phone] RAD #: D/C DT PAGE 2 Signed ReportGLUBED 2021-11-10 09:41:00 Test Item Value Reference Range Interpretation Comments GLUBED (test code = GLUBED) 228 mg/dL 60-125 H [id number] 08:13:00 Test Item Value Reference Range Interpretation Comments OXDIB41Ahgeoson Negative Negative The test was performed (test code = at: [facility] 04/21Note: [id number]) this entry is for TRACKING purpos es only and the testwas done outside [facility], the perfroming entitiy isfound in spec imen comments. The test was performed at: [facility]: 11/07/21Patient's account number from transferring facility: [id number] patient's current lab results are: Negative GLYCOSYLATED HEMOGLOBIN (HA1C)2021-10-25 18:19:00 Test Item Value Reference Range Interpretation Comments GLYCOSYLATED 7.5 % 4.8-5.9 H Any condition t hat shortens HEMOGLOBIN (HA1C) erythocyte survival or (test code = GLYHGB) decreas esmean erythrocyte age (e.g., cyrus very from acute blood los s,hemolytic anemai) will fa lsely lower HGBA1c resultsr egardless of the method used . HGBA1c results frompat ients with HbSS, HbCC and HbSc must be interpreted wit hcaution given the patho logical processes, incl uding anemia,increase d red cell turnover, trans fusion requirements, t hatadversely impact HGBA1c a s a marker of long-term glycemiccontrol . Alternative for ms of testing such as fructosaminesho uld be considered for these patients.Any co ndition that shortens erytho cyte survival or dec reasesmean erythrocyte age (e.g., recovery from a cute blood loss,hemolytic anemia) will falsely lower H GBA1c resultsregardle ss of the method used. H GBA1c results from yulia tee HbSS, HbCC, and HbSc must be interpreted with cautiongiven th e pathological pr ocesses, including anemi a,increased red cell turnov er, transfusion req uirements, thatadversely i mpact HGBA1c as a marker of long-term glycemiccontrol . Alternative for ms of testing such as fructosaminesho uld be considered for these patients.DONE A T: [facility] [id number] [place] [address] GLYCOSYLATED HEMOGLOBIN (HA1C)2021-10-25 18:18:00 Test Item Value Reference Range Interpretation Comments GLYCOSYLATED 7.5 % 4.8-5.9 H Any condition t hat shortens HEMOGLOBIN (HA1C) erythocyte survival or (test code = GLYHGB) decreas esmean erythrocyte age (e.g., cyrus very from acute blood los s,hemolytic anemia) will fa lsely lower HGBA1c resultsr egardless of the method used . HGBA1c results from yulia tee HbSS, HbCC, and HbSc must be interpreted with cautiongiven th e pathological pr ocesses, including anemi a,increased red cell turnov er, transfusion req uirements, thatadversely i mpact HGBA1c as a marker of long-term glycemiccontrol . Alternative for ms of testing such as fructosaminesho uld be considered for these patients. COMPREHENSIVE METABOLIC [id number] 13:13:00 Test Item Value Reference Range Interpretation Comments SODIUM (test code = 140 mmol/L 136-145 N NA) POTASSIUM (test code = 4.4 mmol/L 3.5-5.1 N K) CHLORIDE (test code = 102.0 mmol/L 98-107 N CL) CARBON DIOXIDE (test 28.7 mmol/L 21-32 N code = CO2) GLUCOSE (test code = 205 mg/dL 70-110 H GLU) BLOOD UREA NITROGEN 16 mg/dL 7-18 N (test code = BUN) GLOMERULAR FILTRATION 87.0 >60 Unit o f measure: RATE (test code = GFR) mL/mi n/1.73 [id number] Range:Healthy Adults >90 mL/min/1.73 m2 For Chronic Kidney Disease: St age II Mild Decrease in GFR 60-90 St age III Moderate Decrease in GFR 30-59 Stage IV Severe Decre ase in GFR 15- 29 Stage V Kidney Failure <15 CREATININE (test code 0.84 mg/dL 0.55-1.30 N = CREAT) TOTAL PROTEIN (test 7.5 g/dL 6.4-8.2 N code = PROT) ALBUMIN (test code = 3.2 g/dL 3.4-5.0 L ALB) GLOBULIN (test code = 4.3 g/dL 2.2-4.2 H GLOB) ALBUMIN/GLOBULIN RATIO 0.7 0.7-2.0 N (test code = A/G) CALCIUM (test code = 9.3 mg/dL 8.2-10.1 N CA) BILIRUBIN TOTAL (test 0.50 mg/dL 0.2-1.00 N code = BILT) SGOT/AST (test code = 15.0 U/L 15-37 N AST) SGPT/ALT (test code = 22.0 U/L 12-78 N Please note new ALT) normal range. ALKALINE PHOSPHATASE 75 U/L 46-116 N TOTAL (test code = ALKP) CBC W/AUTO [id number] 12:30:00 Test Item Value Reference Range Interpretation Comments WHITE BLOOD CELL (test code = WBC) 8.5 K/mm3 5.8-11.0 N RED BLOOD CELL (test code = RBC) 4.71 M/mm3 4.2-5.4 N HEMOGLOBIN (test code = HGB) 11.9 g/dL 12-16 L HEMATOCRIT (test code = HCT) 38.0 % 37-47 N MEAN CELL VOLUME (test code = MCV) 81 fL 80-98 N MEAN CELL HGB (test code = MCH) 25.3 pg 27-34 L MEAN CELL HGB CONCENTRATION (test 31.3 g/dL 30.8-34.1 N code = MCHC) RED CELL DISTRIBUTION WIDTH (test 13.7 % 11-16 N code = RDW) PLT (test code = PLT) 377 K/mm3 130-400 N MEAN PLATELET VOLUME (test code = 10.4 fL 8.9-12.1 N MPV) NEUTROPHIL % (test code = NT%) 49.4 % 45-70 N LYMPHOCYTE % (test code = LY%) 40.2 % 20-40 H MONOCYTE % (test code = MO%) 7.2 % 3-10 N EOSINOPHIL % (test code = EO%) 2.6 % 1-5 N BASOPHIL % (test code = BA%) 0.4 % 0.0-1.1 N NEUTROPHIL # (test code = NT#) 4.20 K/mm3 2.00-7.50 N LYMPHOCYTE # (test code = LY#) 3.41 K/mm3 1.50-4.00 N MONOCYTE # (test code = MO#) 0.61 K/mm3 0.2-0.8 N EOSINOPHIL # (test code = EO#) 0.22 K/mm3 0.04-0.4 N BASOPHIL # (test code = BA#) 0.03 K/mm3 0.02-0.10 N MANUAL DIFF REQUIRED (test code = NO MANUAL DIFF MDIFF) NUCLEATED RED BLOOD CELL (test 0 % 0-0 N code = NRBC) - XR L-SPINE [id number] 02:35:00 Name: KATERYNA SAMSON [facility] : 1970 Age/S: 48 / F [id number] Unit #: [id number] Loc: [place] [address] Phys: Katie Guerrero MD Acct: [id number] Dis Date: Status: REG ER PHONE #: [phone] Exam Date: 07/05/2019 0215 FAX #: Reason: hip pain EXAMS: CPT: [id number] XR L-SPINE 4+VIEWS 63075 Fluoro Time: DAP (Gy m2): Air Kerma [...] IMPRESSION: No acute findings at 0235 Reported andsigned by: Kian Stout M.D. CC: Katie Guerrero MD PAGE 1 Signed Report Name: KATERYNA SAMSON [facility] : 1970 Age/S: 48 / F [id number] [address] Unit #: [id number] Loc: [place] [address] Phys: Katie Guerrero MD Acct: [id number] Dis Date: Status: REG ER PHONE #: [phone] Exam Date: 07/05/2019 0215 FAX #: Reason: hip pain EXAMS: CPT: [id number] XR L-SPINE 4+VIEWS 50644 Fluoro Time: DAP (Gy m2): Air Kerma (mGy): <Continued> Technologist: RT Ace(R) [facility] Date/Time: 07/05/2019 (023) [id number] Orig Print D/T: S: 07/05/2019 (0238) PAGE 2 Signed Report- XR HIP BI [id number] 02:33:00 Name: KATERYNA SAMSON [facility] : 1970 Age/S: 48 / F [id number] [address] Unit #: [id number] Loc: [place] [address] Phys: Katie Guerrero MD Acct: [id number] Dis Date: Status: REG ER PHONE #: [phone] Exam Date: 07/05/2019 0200 FAX #: Reason: hip pain EXAMS: CPT: [id number] XR HIP BI W/PELVIS 83508 Fluoro Time: DAP (Gy m2): Air Kerma [...] PAGE 1 Signed Report Name: KATERYNA SAMSON [facility] : 1970 Age/S: 48 / F [id number] Unit #: [id number] Loc: [place] [address] Phys: Katie Guerrero MD Acct: [id number] Dis Date: Status: REG ER PHONE #: [phone] Exam Date: 07/05/2019 0200 FAX #: Reason: hip pain EXAMS: CPT: [id number] XR HIP BI W/PELVIS 09775 Fluoro Time: DAP (Gy m2): Air Kerma (mGy): <Continued> Technologist: RT Ace(R) Trnscb Date/Time: 07/05/2019 (0233) [id number] Orig Print D/T: S: 07/05/2019 (0236) PAGE 2 Signed Report
[2021-11-16 08:24] LABS: Absolute Lymphocytes (CBC) 3.2 K/uL (0.7-4.9); Hematocrit 27.3 % (36.0-45.0); Lymphocytes % 27.1 % (15.3-44.8); MPV 7.9 fL (7.6-11.3); RBC Red Blood Cell Count 3.37 M/uL (3.86-4.86)
[2021-11-16 08:25] LABS: Protime INR 1.23
[2021-11-16] MEDS ORDERED: ONDANSETRON 4 MG/2 ML VIAL ONE (08:32)
[2021-11-16] MEDS ORDERED: MORPHINE 4 MG/ML SYR ONE (08:32)
[2021-11-16 09:14] LABS: Albumin 2.4 g/dL (3.4-5.0); Bilirubin Direct 0.1 mg/dL (0-0.2); Bilirubin Total 0.8 mg/dL (0.2-1.0); Protein, Total 7.5 g/dL (6.4-8.2)
[2021-11-16 09:15] LABS: Magnesium 1.9 mg/dL (1.8-2.4); Potassium 4.4 mmol/L (3.5-5.1)
[2021-11-16 09:20] LABS: Troponin High Sensitivity 189.4 pg/mL (<58.9)
--- NOTE | 2021-11-16 09:33 | RAD REPORT ---
EXAM DESCRIPTION: USExtremity Venous Uni Ltd11/16/2021 8:51 am CLINICAL HISTORY: Right leg pain COMPARISON: 2020 FINDINGS: Right common femoral, superficial femoral, popliteal and right posterior tibial veins are compressible and demonstrate augmentation. Doppler demonstrates good flow. Grayscale, color and spectral analysis performed on all vessels IMPRESSION: No evidence of deep venous thrombosis involving the right lower extremity.
--- NOTE | 2021-11-16 09:54 | RAD REPORT ---
EXAM DESCRIPTION: CT - Chest For Pe Angio - 11/16/2021 9:30 am CLINICAL HISTORY: Chest pain COMPARISON: None. TECHNIQUE: Dynamically enhanced axial 3 mm thick images of the chest were obtained during administra tion of <100> mL Isovue 370 IV contrast. Coronal and oblique reconstruction images were generated and reviewed. Exam utilizes a protocol for optimal evaluation of pulmonary arterial tree. Maximum intensity projections 3D imaging was utilized All CT scans are performed using dose optimization technique as appropriate and may include automated exposure control or mA/KV adjustment according to patient size. FINDINGS: A pulmonary embolus is not seen. A thoracic aortic aneurysm is not noted. A pleural effusion is not seen. A pericardial effusion is not seen. Mild left upper lobe opacities Fatty liver IMPRESSION: Negative for a pulmonary embolism. Two mild left upper lobe opacities may indicate pneumonia
--- NOTE | 2021-11-16 09:59 | RAD REPORT ---
EXAM DESCRIPTION: RAD - Hip Right 2 View - 11/16/2021 9:39 am CLINICAL HISTORY: Right hip pain FINDINGS: Postsurgical changes of a right hip arthroplasty. A right hip prosthesis is in good position. No evidence of loosening. No fracture or dislocation
--- NOTE | 2021-11-16 10:02 | RAD REPORT ---
EXAM DESCRIPTION: Leti Single View11/16/2021 9:39 am CLINICAL HISTORY: Chest pain COMPARISON: 2012 FINDINGS: Mild left upper lobe opacities. Right lung appears clear. Mild cardiomegaly IMPRESSION: Mild left upper lobe opacities may indicate pneumonia
--- NOTE | 2021-11-16 12:08 | EDPHYS ---
Physician Documentation [facility] Name: Puja Abarca Age: 51 yrs Sex: Female : 1970 Arrival Date: 11/16/2021 Time: 07:20 Bed 7 Private MD: ED Physician Kevan Ventura HPI: 11/16 08:19 This 51 yrs old Black Female presents to ER via Wheelchair with complaints of Hip Pain, kdr Leg Swelling, Chest Pain. 08:19 The patient or guardian reports decreased range of motion, pain, swelling. that kdr occurred at home, sustained from unknown reason, There is no obvious deformity, The patient is able to ambulate with assistance. The patient is able to bear their full body weight. The patient's discomfort radiates to the left breast. Onset: The symptoms/episode began/occurred suddenly, this morning. Modifying factors: The symptoms are alleviated by nothing, the symptoms are aggravated by any movement. Associated signs and symptoms: Loss of consciousness: the patient experienced no loss of consciousness, Pertinent positives: Right arm pain and left chest pain. She states that she had palpitations when she awoke this morning. Severity of symptoms: At their worst the symptoms were mild, moderate, just prior to arrival, in the emergency department the symptoms are unchanged. The patient has not experienced similar symptoms in the past. Patient had a right hip replacement on the 10th of this month. 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 LMP N/A - Post-menopause mk Historical: - Allergies: 07:26 No Known Allergies; jg9 - Home Meds: 10:54 metformin 750 mg oral Tb24 twice a day [Active]; glimepiride 4 mg Oral tab 1 tab once iw daily [Active]; Eliquis 5 mg oral tab 1 tab 2 times per day [Active]; lisinopril 20 mg Oral tab 1 tab once daily [Active]; atorvastatin 20 mg oral tab 1 tab once daily [Active]; gabapentin 300 mg oral tab twice a day [Active]; minocycline 100 mg Oral tab 1 tab every 12 hours [Active]; ondansetron HCl 4 mg Oral tab [Active]; Docusate Sodium Oral [Active]; hydrocodone-acetaminophen 10-325 mg Oral tab [Active]; - PMHx: 07:26 Diabetes - NIDDM; DVT; High Cholesterol; Hypertension; jg9 - Immunization history:: Client reports receiving the 2nd dose of the Covid vaccine, Pneumococcal vaccine is not up to date, Flu vaccine is not up to date. - Social history:: Smoking status: Patient denies any tobacco usage or history of. ROS: 08:19 Constitutional: Negative for fever, chills, and weight loss, Eyes: Negative for injury, kdr pain, redness, and discharge, ENT: Negative for injury, pain, and discharge, Neck: Negative for injury, pain, and swelling, Respiratory: Negative for shortness of breath, cough, wheezing, and pleuritic chest pain, Abdomen/GI: Negative for abdominal pain, nausea, vomiting, diarrhea, and constipation, Back: Negative for injury and pain, : Negative for injury, bleeding, discharge, and swelling, Skin: Negative for injury, rash, and discoloration, Psych: Negative for depression, anxiety, suicide ideation, homicidal ideation, and hallucinations, Allergy/Immunology: Negative for hives, rash, and allergies, Endocrine: Negative for neck swelling, polydipsia, polyuria, polyphagia, and marked weight changes, Hematologic/Lymphatic: Negative for swollen nodes, abnormal bleeding, and unusual bruising. 08:19 Cardiovascular: Positive for chest pain, of the left breast, palpitations, Negative for edema, orthopnea, paroxysmal nocturnal dyspnea, acute changes. 08:19 Abdomen/GI: Positive for abdominal pain, constipation, of the left upper quadrant and left lower quadrant. 08:19 MS/extremity: Positive for Right hip pain and flank pain, Negative for decreased range of motion, ecchymosis, erythema, laceration, paresthesias, puncture, rash, swelling. Exam: 08:19 Constitutional: This is a well developed, well nourished obese patient who is awake, kdr alert, and in no acute distress. Head/Face: Normocephalic, atraumatic. Eyes: Pupils equal round and reactive to light, extra-ocular motions intact. Lids and lashes normal. Conjunctiva and sclera are non-icteric and not injected. Cornea within normal limits. Periorbital areas with no swelling, redness, or edema. Neck: Trachea midline, no thyromegaly or masses palpated, and no cervical lymphadenopathy. Supple, full range of motion without nuchal rigidity, or vertebral point tenderness. No Meningismus. Chest/axilla: Normal chest wall appearance and motion. Nontender with no deformity. No lesions are appreciated. Cardiovascular: Regular rate and rhythm with a normal S1 and S2. No gallops, murmurs, or rubs. Normal PMI, no JVD. No pulse deficits. Respiratory: Lungs have equal breath sounds bilaterally, clear to auscultation and percussion. No rales, rhonchi or wheezes noted. No increased work of breathing, no retractions or nasal flaring. Back: No spinal tenderness. No costovertebral tenderness. Full range of motion. Skin: Warm, dry with normal turgor. Normal color with no rashes, no lesions, and no evidence of cellulitis. Neuro: Awake and alert, GCS 15, oriented to person, place, time, and situation. Cranial nerves II-XII grossly intact. Motor strength 5/5 in all extremities. Sensory grossly intact. Cerebellar exam normal. Normal gait. Psych: Awake, alert, with orientation to person, place and time. Behavior, mood, and affect are within normal limits. 08:19 Abdomen/GI: Inspection: obese Bowel sounds: active, Palpation: soft, mild abdominal tenderness, in the left upper quadrant and left lower quadrant, mass, is not appreciated, rebound tenderness, is not appreciated, voluntary guarding, is not appreciated, involuntary guarding, is not appreciated. 08:26 ECG was reviewed by the Attending Physician. kdr Vital Signs: 07:24 BP 132 / 72 LA; Pulse 93; Resp 17; Temp 98.1; Pulse Ox 94% on R/A; Weight 110.22 kg; jg9 Height 5 ft. 3 in. (160.02 cm) (R); 10:31 BP 116 / 69; Pulse 84; Resp 17 S; Pulse Ox 95% on R/A; jd3 11:34 BP 116 / 79; Pulse 87; Resp 18 S; Pulse Ox 99% on R/A; jd3 13:20 BP 120 / 67; Pulse 69; Resp 18 S; Pulse Ox 95% on R/A; jd3 14:49 BP 120 / 67; Pulse 88; Resp 18 S; Pulse Ox 96% on R/A; jd3 17:26 BP 136 / 54; Pulse 90; Resp 17 S; Pulse Ox 97% on R/A; jd3 19:30 BP 124 / 68; Pulse 91; Resp 18; Pulse Ox 98% on R/A; mk 20:30 BP 140 / 60; Pulse 86; Resp 18; Pulse Ox 100% on R/A; mk 07:24 Body Mass Index 43.05 (110.22 kg, 160.02 cm) jg9 Jeannette Coma Score: 19:30 Eye Response: spontaneous(4). Verbal Response: oriented(5). Motor Response: obeys mk commands(6). Total: 15. 20:30 Eye Response: spontaneous(4). Verbal Response: oriented(5). Motor Response: obeys mk commands(6). Total: 15. MDM: 08:19 Data reviewed: vital signs, nurses notes, lab test result(s), radiologic studies. kdr Counseling: I had a detailed discussion with the patient and/or guardian regarding: the historical points, exam findings, and any diagnostic results supporting the discharge/admit diagnosis, lab results. 12:07 Patient medically screened. kdr 11/16 08:08 Order name: Basic Metabolic Panel; Complete Time: 10:00 kdr 11/16 08:08 Order name: CBC with Diff; Complete Time: 08:46 kdr 11/16 08:08 Order name: LFT's; Complete Time: 10:00 kdr 11/16 08:08 Order name: Magnesium; Complete Time: 10:00 kdr 11/16 08:08 Order name: NT PRO-BNP; Complete Time: 10:00 kdr 11/16 08:08 Order name: PT-INR; Complete Time: 08:46 kdr 11/16 08:08 Order name: Troponin HS; Complete Time: 10:00 kdr 11/16 08:18 Order name: D-Dimer; Complete Time: 08:51 kdr 11/16 08:51 Order name: COVID-19 SARS RT PCR (Document "Date of Onset" if Symptomatic) bd 11/16 12:24 Order name: CBC with Automated Diff EDMS 11/16 12:24 Order name: CBC with Automated Diff EDMS 11/16 12:24 Order name: CKMB Creatine Kinase MB EDMS 11/16 12:24 Order name: CKMB Creatine Kinase MB EDMS 11/16 12:24 Order name: CKMB Creatine Kinase MB EDMS 11/16 08:08 Order name: XRAY Chest (1 view); Complete Time: 10:45 kdr 11/16 08:18 Order name: Hip Right 2 View XRAY; Complete Time: 10:45 kdr 11/16 08:18 Order name: US Extremity Venous Unilateral Ltd; Complete Time: 10:00 kdr 11/16 08:46 Order name: CT Chest For PE Angio; Complete Time: 10:45 kdr 11/16 12:24 Order name: CKMB Creatine Kinase MB EDMS 11/16 12:24 Order name: Comprehensive Metabolic Panel EDMS 11/16 12:24 Order name: Comprehensive Metabolic Panel EDMS 11/16 12:24 Order name: Lipid Profile EDMS 11/16 12:24 Order name: Lipid Profile EDMS 11/16 12:24 Order name: Troponin High Sensitivity EDMS 11/16 12:24 Order name: Troponin High Sensitivity EDMS 11/16 12:24 Order name: Troponin High Sensitivity EDMS 11/16 12:24 Order name: Blood Culture EDMS 11/16 12:24 Order name: COVID 19 CPL EDMS 11/16 17:30 Order name: CT Abd/Pelvis - IV Contrast Only kdr 11/16 08:08 Order name: EKG; Complete Time: 08:09 kdr 11/16 08:08 Order name: Cardiac monitoring; Complete Time: 08:09 kdr 11/16 08:08 Order name: EKG - Nurse/Tech; Complete Time: 08:09 kdr 11/16 08:08 Order name: IV Saline Lock; Complete Time: 08:09 kdr 11/16 08:08 Order name: Labs collected and sent; Complete Time: 08:09 kdr 11/16 08:08 Order name: O2 Per Protocol; Complete Time: 08:09 kdr 11/16 08:08 Order name: O2 Sat Monitoring; Complete Time: 08:08 kdr 11/16 12:24 Order name: 60g Consistent Carbohydrate (ADA 1800/2000) EDMS 11/16 18:28 Order name: CT EDMS EC:26 Rate is 98 beats/min. Rhythm is regular, Sinus Rhythm with No ectopy. QRS [place] is kdr Normal. [place] interval is normal. QRS interval is normal. QT interval is normal. Clinical impression: NSR w/ Non-specific ST/T Changes. Administered Medications: 08:59 Drug: morphine 4 mg Route: IVP; Site: left antecubital; ke1 19:00 Follow up: Response: No adverse reaction 19:30 Follow up: Response: No adverse reaction 08:59 Drug: Zofran (Ondansetron) 4 mg Route: IVP; Site: left antecubital; ke1 11:45 Follow up: Response: Pain is decreased ke1 11:45 Follow up: Response: No adverse reaction ke1 19:00 Follow up: Response: No adverse reaction 17:43 Drug: Dulcolax (bisacodyl) Delayed Release Tablet 5 mg Route: PO; jd3 19:30 Follow up: Response: No adverse reaction mk 17:43 Drug: Miralax (polyethylene glycol) 17 grams Route: PO; jd3 19:30 Follow up: Response: No adverse reaction mk 17:43 Drug: [place] (HYDROcodone-acetaminophen) 10 mg-325 mg 1 tabs Route: PO; jd3 19:30 Follow up: Response: No adverse reaction mk 17:43 Drug: NS 0.9% 500 ml Route: IV; Rate: bolus; Site: left antecubital; jd3 20:30 Follow up: Response: No adverse reaction; IV Status: Infusion continued upon admission; IV Intake: 350ml Disposition Summary: 11/16/21 12:07 Hospitalization Ordered Hospitalization Status: Observation kdr Provider: Joey Fang Location: Telemetry/MedSurg (observation) kdr Condition: Fair kdr Problem: new kdr Symptoms: have improved kdr Bed/Room Type: Standard kdr Room Assignment: [facility](11/16/21 18:32) bd Diagnosis - Chest pain, unspecified kdr - Other specified anemias kdr - Anemia, unspecified kdr - Pain in right hip kdr Forms: - Medication Reconciliation Form kdr - SBAR form kdr Signatures: Dispatcher [employer] EDNM Osiris Guzman Kevin, MD MD kdr Margareth Loaiza RN RN iw Davies, Jonathon, RN RN jLexus Arias RN RN jg9 Jennifer Lowe RN RN mk Ebrottie, Kouassi, RN RN ke1 Corrections: (The following items were deleted from the chart) 12:56 12:55 SARS-COV-2 RT PCR+[id number].BRZ ordered. EDNM EDMS 18:32 12:07 kdr bd
--- NOTE | 2021-11-16 12:08 | ER ---
Nurse's Notes [facility] Name: Puja Abarca Age: 51 yrs Sex: Female : 1970 Arrival Date: 11/16/2021 Time: 07:20 Bed 7 Private MD: Diagnosis: Chest pain, unspecified;Other specified anemias;Anemia, unspecified;Pain in right hip Presentation: 11/16 07:24 Chief complaint: Patient states: I had right hip replacement sugery on 11/10/21 and this jg9 morning I woke up having pain in the area, swelling, and my arms and chest have been hurting since I got up, patient reports sob also. Coronavirus screen: Vaccine status: Patient reports receiving the 2nd dose of the covid vaccine. Ebola Screen: Patient negative for fever greater than or equal to 101.5 degrees Fahrenheit, and additional compatible Ebola Virus Disease symptoms Patient denies exposure to infectious person. Patient denies travel to an Ebola-affected area in the 21 days before illness onset. Initial Sepsis Screen: Does the patient meet any 2 criteria? No. Patient's initial sepsis screen is negative. Does the patient have a suspected source of infection? No. Patient's initial sepsis screen is negative. Risk Assessment: Do you want to hurt yourself or someone else? Patient reports no desire to harm self or others. Onset of symptoms is unknown. 07:24 Method Of Arrival: Wheelchair j9 07:24 Acuity: JAYME 2 jg9 Triage Assessment: 07:27 General: Appears uncomfortable, Behavior is calm. Pain: Complains of pain in chest, jg9 right arm, left arm and right leg. Cardiovascular: Reports chest pain. 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 LMP N/A - Post-menopause mk Historical: - Allergies: 07:26 No Known Allergies; jg9 - Home Meds: 10:54 metformin 750 mg oral Tb24 twice a day [Active]; glimepiride 4 mg Oral tab 1 tab once iw daily [Active]; Eliquis 5 mg oral tab 1 tab 2 times per day [Active]; lisinopril 20 mg Oral tab 1 tab once daily [Active]; atorvastatin 20 mg oral tab 1 tab once daily [Active]; gabapentin 300 mg oral tab twice a day [Active]; minocycline 100 mg Oral tab 1 tab every 12 hours [Active]; ondansetron HCl 4 mg Oral tab [Active]; Docusate Sodium Oral [Active]; hydrocodone-acetaminophen 10-325 mg Oral tab [Active]; - PMHx: 07:26 Diabetes - NIDDM; DVT; High Cholesterol; Hypertension; jg9 - Immunization history:: Client reports receiving the 2nd dose of the Covid vaccine, Pneumococcal vaccine is not up to date, Flu vaccine is not up to date. - Social history:: Smoking status: Patient denies any tobacco usage or history of. Screenin:38 Abuse screen: Denies threats or abuse. Denies injuries from another. Nutritional jg9 screening: No deficits noted. Tuberculosis screening: No symptoms or risk factors identified. Fall Risk None identified. Assessment: 07:37 Pain: Pain radiates to right arm and left arm Pain began 1 hour ago. jg9 07:43 General: Appears uncomfortable, Behavior is calm, cooperative, appropriate for age. jd3 Pain: Complains of pain in chest and pelvis Quality of pain is described as sharp. Neuro: Level of Consciousness is awake, alert, obeys commands, Oriented to person, place, time, situation. Cardiovascular: Reports chest pain, Capillary refill < 3 seconds Patient's skin is warm and dry. Pulses are palpable in right dorsalis pedis artery and left dorsalis pedis artery Rhythm is regular. Respiratory: Airway is patent Respiratory effort is even, unlabored, Respiratory pattern is regular, symmetrical. GI: No signs and/or symptoms were reported involving the gastrointestinal system. : No signs and/or symptoms were reported regarding the genitourinary system. EENT: No signs and/or symptoms were reported regarding the EENT system. Derm: Skin is intact, Skin is dry, Skin is normal, Skin temperature is warm. Musculoskeletal: Circulation, motion, and sensation intact. Range of motion: intact in all extremities, Reports swelling in right leg. 08:22 Pain: Complains of pain in right hip and right leg Pain currently is 9 out of 10 on a ke1 pain scale. 10:31 Reassessment: Patient appears in no apparent distress at this time. Patient and/or jd3 family updated on plan of care and expected duration. Pain level reassessed. Patient is alert, oriented x 3, equal unlabored respirations, skin warm/dry/pink. Patient states feeling better. 11:33 Reassessment: Patient appears in no apparent distress at this time. No changes from jd3 previously documented assessment. Patient and/or family updated on plan of care and expected duration. Pain level reassessed. Patient is alert, oriented x 3, equal unlabored respirations, skin warm/dry/pink. 13:20 Reassessment: Patient appears in no apparent distress at this time. Patient and/or jd3 family updated on plan of care and expected duration. Pain level reassessed. Patient is alert, oriented x 3, equal unlabored respirations, skin warm/dry/pink. awaiting admission. 14:49 Reassessment: No changes from previously documented assessment. Patient and/or family jd3 updated on plan of care and expected duration. Pain level reassessed. Patient is alert, oriented x 3, equal unlabored respirations, skin warm/dry/pink. 15:41 Reassessment: Patient appears in no apparent distress at this time. No changes from ww previously documented assessment. Patient and/or family updated on plan of care and expected duration. Pain level reassessed. 17:26 Reassessment: Patient appears in no apparent distress at this time. Patient and/or jd3 family updated on plan of care and expected duration. Pain level reassessed. Patient is alert, oriented x 3, equal unlabored respirations, skin warm/dry/pink. awaiting admission. 19:30 General: Appears in no apparent distress. Pain: Denies pain. Neuro: Level of mk Consciousness is awake, alert, obeys commands, Oriented to person, place, time, situation, Moves all extremities. Cardiovascular: Heart tones S1 S2 Capillary refill < 3 seconds in bilateral fingers toes Clubbing of nail beds is absent JVD is absent Patient's skin is warm and dry. Pulses are 3+ in right radial artery, right dorsalis pedis artery, left radial artery and left dorsalis pedis artery. Respiratory: Airway is patent Trachea midline Respiratory effort is even, unlabored, Respiratory pattern is regular, symmetrical, Breath sounds are clear. GI: No signs and/or symptoms were reported involving the gastrointestinal system. : No signs and/or symptoms were reported regarding the genitourinary system. Musculoskeletal: Circulation, motion, and sensation intact. Range of motion: limited in left hip r/t post op pain. 20:30 Reassessment: No changes from previously documented assessment. Patient and/or family mk updated on plan of care and expected duration. Pain level reassessed. Patient is alert, oriented x 3, equal unlabored respirations, skin warm/dry/pink. Vital Signs: 07:24 BP 132 / 72 LA; Pulse 93; Resp 17; Temp 98.1; Pulse Ox 94% on R/A; Weight 110.22 kg; jg9 Height 5 ft. 3 in. (160.02 cm) (R); 10:31 BP 116 / 69; Pulse 84; Resp 17 S; Pulse Ox 95% on R/A; jd3 11:34 BP 116 / 79; Pulse 87; Resp 18 S; Pulse Ox 99% on R/A; jd3 13:20 BP 120 / 67; Pulse 69; Resp 18 S; Pulse Ox 95% on R/A; jd3 14:49 BP 120 / 67; Pulse 88; Resp 18 S; Pulse Ox 96% on R/A; jd3 17:26 BP 136 / 54; Pulse 90; Resp 17 S; Pulse Ox 97% on R/A; jd3 19:30 BP 124 / 68; Pulse 91; Resp 18; Pulse Ox 98% on R/A; mk 20:30 BP 140 / 60; Pulse 86; Resp 18; Pulse Ox 100% on R/A; mk 07:24 Body Mass Index 43.05 (110.22 kg, 160.02 cm) jg9 [place] Coma Score: 19:30 Eye Response: spontaneous(4). Verbal Response: oriented(5). Motor Response: obeys mk commands(6). Total: 15. 20:30 Eye Response: spontaneous(4). Verbal Response: oriented(5). Motor Response: obeys mk commands(6). Total: 15. ED Course: 07:20 Patient arrived in ED. mr 07:26 Triage completed. jg9 07:30 Lili Ramos RN is Primary Nurse. ke1 07:33 Arm band placed on. jd3 08:00 Inserted saline lock: 22 gauge in left antecubital area, using aseptic technique. ke1 08:07 Kevan Ventura MD is Attending Physician. kdr 08:51 US Extremity Venous Unilateral Ltd In Process Unspecified. EDMS 09:30 CT Chest For PE Angio In Process Unspecified. EDMS 09:39 XRAY Chest (1 view) In Process Unspecified. EDMS 09:39 Hip Right 2 View XRAY In Process Unspecified. EDMS 10:32 Patient has correct armband on for positive identification. Bed in low position. Call jd3 light in reach. Side rails up X2. pipe line walker on. Pulse ox on. NIBP on. 10:32 Patient maintains SpO2 saturation greater than 95% on room air. jd3 12:06 Joey Fang MD is Hospitalizing Provider. kdr 20:30 No provider procedures requiring assistance completed. Patient admitted, IV remains in mk place. Administered Medications: 08:59 Drug: morphine 4 mg Route: IVP; Site: left antecubital; ke1 19:00 Follow up: Response: No adverse reaction mk 19:30 Follow up: Response: No adverse reaction 08:59 Drug: Zofran (Ondansetron) 4 mg Route: IVP; Site: left antecubital; ke1 11:45 Follow up: Response: Pain is decreased ke1 11:45 Follow up: Response: No adverse reaction ke1 19:00 Follow up: Response: No adverse reaction 17:43 Drug: Dulcolax (bisacodyl) Delayed Release Tablet 5 mg Route: PO; jd3 19:30 Follow up: Response: No adverse reaction mk 17:43 Drug: Miralax (polyethylene glycol) 17 grams Route: PO; jd3 19:30 Follow up: Response: No adverse reaction mk 17:43 Drug: [place] (HYDROcodone-acetaminophen) 10 mg-325 mg 1 tabs Route: PO; jd3 19:30 Follow up: Response: No adverse reaction 17:43 Drug: NS 0.9% 500 ml Route: IV; Rate: bolus; Site: left antecubital; jd3 20:30 Follow up: Response: No adverse reaction; IV Status: Infusion continued upon admission; IV Intake: 350ml Intake: 20:30 IV: 350ml; Total: 350ml. Outcome: 12:07 Decision to Hospitalize by Provider. kdr 20:30 Admitted to [facility] mk 20:30 Condition: stable 20:30 Instructed on the need for admit. 21:12 Patient left the ED. mk Signatures: Dispatcher [employer] EDMS Kevan Ventura MD MD kdr Rivera, Mary mr Williams, Irene, RN Blade Jimenez RN RN jd3 Gilmore, Jennifer, RN RN jg9 Heydi Oviedo RN Jennifer Keenan RN RN mk Ebrottie, Kouassi, RN RN ke1 Corrections: (The following items were deleted from the chart) 07:37 07:24 Chief complaint: Patient states: I had hip sugery on 11/10/21 and this morning I jg9 woke up having pain in the area, swelling, and my arms and chest have been hurting since I got up this morning. jg9 07:40 07:27 General: Appears in no apparent distress. uncomfortable, Behavior is calm, jg9 jg9
[2021-11-16] MEDS ORDERED: ONDANSETRON 4 MG/2 ML VIAL IV PRN (12:16)
[2021-11-16] MEDS ORDERED: ALBUTEROL 2.5 MG/3 ML NEB SOL NEB PRN (12:16)
[2021-11-16] MEDS ORDERED: MORPHINE 2 MG/ML SYR IV PRN (12:16)
[2021-11-16] MEDS ORDERED: HYDRALAZINE HCL 20 MG/ML VIAL IV PRN (12:19)
[2021-11-16] MEDS ORDERED: guaiFENesin 100 MG/5 ML UCUP PO PRN (12:19)
[2021-11-16] MEDS ORDERED: BISACODYL E.C. 5 MG TAB PO PRN (12:23)
[2021-11-16] MEDS ORDERED: DOCUSATE NA/SENNA CONC 1 TAB PO PRN (12:23)
--- NOTE | 2021-11-16 12:29 | P.HP ---
Certification for Inpatient Patient admitted to: Observation With expected LOS: <2 Midnights Patient will require the following post-hospital care: None Practitioner: I am a practitioner with admitting privileges, knowledge of patient current condition, hospital course, and medical plan of care. Services: Services provided to patient in accordance with Admission requirements found in Title 42 Section 412.3 of the Code of Federal Regulations Patient History Date of Service: 11/16/21 Reason for admission: Right hip pain and left-sided chest pain History of Present Illness: 51-year-old -[place] female with past medical history of hypertension, diabetes mellitus, obesity, history of DVT on chronic anticoagulation with Eliquis since the last 1 year, chronic right hip pain s/p right replacement at [facility] in [place] 6 days ago and discharged home with pain medication patient presented today because of persistent pain over the right hip. She states pain is somewhat improved post ORIF but she is worried that pain is still there. She also complained of left-sided chest pain which woke her up last night associated with some tingling down her left arm. She says she has some palpitation as well as anxiety during onset of symptoms. Symptoms initially subsided became recurr earlier today. On arrival in the emergency room, patient was noted with mild elevated troponin at 189, EKG shows normal sinus rhythm with no ST segment changes. Chest x-ray shows left pneumonic infiltrate. CT of the chest PE protocol shows no evidence of PE but 2 areas of infiltrate on left lung. Allergies No Known Allergies Allergy (Unverified 12/22/12 18:28) - Past Medical/Surgical History -: Hypertension -: Diabetes mellitus -: History of DVT -: Chronic anticoagulation with Eliquis -: Right hip ORIF - Social History Smoking Status: Never smoker Smoking therapy provided: No Patient receptive to therapy: No Alcohol use: No CD- Drugs: No Caffeine use: No Place of Residence: Home Review of Systems Respiratory: Cough, Dry, Shortness of Breath, Hemoptysis, SOB with Excertion, Pleuritic Pain, Sputum, Wheezing, Other, As per HPI, Unremarkable Cardiovascular: Chest Pain, Palpitations Gastrointestinal: Nausea, Vomiting, Abdominal Pain, Diarrhea, Distention, No Distention, Constipation, Melena, Hematochezia, Other, As per HPI, Unremarkable Genitourinary: Dysuria, Frequency, Urgency, Incontinence, Hematuria, Retention, Other, As per HPI, Unremarkable Musculoskeletal: Leg Pain Physical Examination - Physical Exam General: Alert, Oriented x3, Obese HEENT: Atraumatic, Normocephalic Neck: Supple, 2+ carotid pulse no bruit, JVD not distended Respiratory: Clear to auscultation bilaterally, Normal air movement, Diminished Cardiovascular: No edema, Normal pulses, Regular rate/rhythm, Normal S1 S2 Gastrointestinal: Normal bowel sounds, Soft and benign, Non-distended Musculoskeletal: No clubbing, No swelling, Other (dsg over right hip, mild tenderness) - Studies Laboratory Data (last 24 hrs) 11/16/21 07:43: PT 14.2 H, INR 1.23 11/16/21 07:43: WBC 11.80 H, Hgb 8.7 L, Hct 27.3 L, Plt Count 404 11/16/21 07:43: Sodium 138, Potassium 4.4, BUN 23 H, Creatinine 0.89, Glucose 183 H, Magnesium 1.9, Total Bilirubin 0.8, AST 33, ALT 29, Alkaline Phosphatase 73 Assessment and Plan - Advance Directives Does patient have a Living Will: No Does patient have a Durable POA for Healthcare: No Physician Review: Patient Assessed, Agree with Above Assessment and Plan Physician Review Additional Text: X-ray of the right hipnormal right hip prosthetic in place, no evidence of dislocation CTno evidence of PE, 2 separate areas of infiltrate in left lung Impression Left pneumonialikely community-acquired Rule out COVID infection Atypical chest painmay be due to pneumonia/underlying acute coronary syndrome Elevated troponin Status post recent right hip replacementstable Hypertension Diabetes mellitus Obesity DVT on chronic anticoagulation PLAN We will admit patient to observation We will start patient on empirical antibiotics Rocephin We will obtain blood culture Obtain Covid screen Do serial set of cardiac enzymes Continue Eliquis Start insulin sliding scale with Accu-Cheks Resume home regimen If further rise in troponin will consult cardiology for possible cardiac cath Continue pain regimen DVT prophylaxison Eliquis Stanford directivefull code Time Spent Managing Pts Care (In Minutes): 70
[2021-11-16] MEDS: NA CHLORIDE 0.9% 1,000 ML IV SCH (13:00)
[2021-11-16 13:25] LABS: CKMB Creatine Kinase MB < 1.0 ng/mL (1.0-3.6)
[2021-11-16] MEDS ORDERED: CEFTRIAXONE 1,000 MG in NA CHLORIDE 0.9% 50 ML IVPB SCH (14:00)
[2021-11-16] MEDS: GABAPENTIN 100 MG CAP PO SCH ×2 (14:00→21:00)
[2021-11-16] MEDS: INSULIN -REGULAR HUMAN 50 UNIT/0.5 ML ML SQ SCH ×2 (16:30→21:00)
[2021-11-16] MEDS: glyBURIDE 2.5 MG TAB PO SCH (17:00)
[2021-11-16] MEDS ORDERED: BISACODYL E.C. 5 MG TAB PO ONE (17:37)
[2021-11-16] MEDS ORDERED: HYDROCODONE/APAP 10/325 TAB ONE (17:37)
[2021-11-16] MEDS ORDERED: POLYETHYL GLY 3350 17 GM/DOSE ONE (17:38)
[2021-11-16] MEDS ORDERED: NA CHLORIDE 0.9% 500 ML ONE (17:38)
--- NOTE | 2021-11-16 18:27 | RAD REPORT ---
EXAM DESCRIPTION: CTAbdomen Pelvis Wo Contrast - 11/16/2021 6:17 pm CLINICAL HISTORY: Abd pain;Constipation COMPARISON: No comparisonsNo comparisons TECHNIQUE: CT of the abdomen and pelvis was performed. All CT scans are performed using dose optimization technique as appropriate and may include automated exposure control or mA/KV adjustment according to patient size. FINDINGS: Lower chest: No acute abnormality. Liver: Hepatic steatosis. Mildly nodular liver configuration. Biliary: Cholelithiasis. Stomach: No significant focal abnormality. Duodenum: No significant focal abnormality. Pancreas: No significant abnormality. Spleen: No significant abnormality. Adrenal: No suspicious lesions. Kidney/ureter: No hydronephrosis. No renal calculi. Retroperitoneum: No retroperitoneal adenopathy. Vascular: No aneurysm. Bowel: No significant focal abnormality. Normal appendix . Mild to moderate colonic stool burden. No bowel obstruction. Peritoneum: No ascites or free air. Bladder: Grossly unremarkable. Reproductive: No adnexal masses. Bones: No acute fracture. Right hip arthroplasty. Other: n/a IMPRESSION: No acute intra-abdominal or pelvic finding. Ancillary findings as noted above.
[2021-11-16] MEDS: APIXABAN 5 MG TABLET PO SCH ×2 (21:46→21:49)
[2021-11-16 22:15] VITALS: O2SAT 97
[2021-11-17 00:08] VITALS: BMI 55.6
[2021-11-17] MEDS: HYDROCODONE/APAP 5/325 MG TAB PO PRN ×2 (01:44→09:27)
[2021-11-17] MEDS ORDERED: CEFTRIAXONE 1,000 MG in NA CHLORIDE 0.9% 50 ML IVPB SCH (02:00)
[2021-11-17 06:15] LABS: Absolute Lymphocytes (CBC) 2.7 K/uL (0.7-4.9); Hematocrit 25.2 % (36.0-45.0); Lymphocytes % 27.8 % (15.3-44.8); MPV 7.5 fL (7.6-11.3); RBC Red Blood Cell Count 3.11 M/uL (3.86-4.86)
[2021-11-17 06:36] LABS: ALT/SGPT 23 U/L (12-78); AST/SGOT 21 U/L (15-37); Albumin 2.3 g/dL (3.4-5.0); Alkaline Phosphatase 68 U/L (45-117); BUN Blood Urea Nitrogen 15 mg/dL (7-18); Bicarbonate 29 mmol/L (21-32); Bilirubin Total 0.6 mg/dL (0.2-1.0); Glucose Level 196 mg/dL (74-106); HDL Cholesterol 38 mg/dL (40-60); LDL Cholesterol, Calculated 81 (<130); Potassium 3.9 mmol/L (3.5-5.1); Protein, Total 6.8 g/dL (6.4-8.2); Sodium Level 138 mmol/L (136-145)
[2021-11-17 06:38] LABS: CKMB Creatine Kinase MB < 1.0 ng/mL (1.0-3.6)
[2021-11-17] MEDS: INSULIN -REGULAR HUMAN 50 UNIT/0.5 ML ML SQ SCH (07:30)
[2021-11-17] MEDS ORDERED: INFLUENZA VACCINE (for 6+ mo) 0.5 ML DOSE IMVAC ONE (08:00)
[2021-11-17 08:44] VITALS: BP 171/81; TEMP 99
[2021-11-17] MEDS: NA CHLORIDE 0.9% 1,000 ML IV SCH (09:00)
[2021-11-17] MEDS ORDERED: lisinopriL 20 MG TAB PO SCH (09:00)
[2021-11-17] MEDS: glyBURIDE 2.5 MG TAB PO SCH (09:27)
[2021-11-17] MEDS: GABAPENTIN 100 MG CAP PO SCH (09:27)
--- NOTE | 2021-11-17 10:18 | P.DS ---
Admission Date: 11/16/21 Discharge Date: 11/17/21 Disposition: ROUTINE DISCHARGE Discharge Condition: FAIR Reason for Admission: Right hip pain and left-sided chest pain Brief History of Present Illness: 51-year-old -Marshallese female with past medical history of hypertension, diabetes mellitus, obesity, history of DVT on chronic anticoagulation with Eliquis since the last 1 year, chronic right hip pain s/p right replacement at [facility] in [place] 6 days ago and discharged home with pain medication patient presented today because of persistent pain over the right hip. She states pain is somewhat improved post ORIF but she is worried that pain is still there. She also complained of left-sided chest pain which woke her up last night associated with some tingling down her left arm. She says she has some palpitation as well as anxiety during onset of symptoms. Symptoms initially subsided became recurr earlier today. On arrival in the emergency room, patient was noted with mild elevated troponin at 189, EKG shows normal sinus rhythm with no ST segment changes. Chest x-ray shows left pneumonic infiltrate. CT of the chest PE protocol shows no evidence of PE but 2 areas of infiltrate on left lung. Hospital Course: Hospital course Patient with recent right hip arthroplasty 1 week ago presented because of right hip pain as well as constipation. She has also been having intermittent chest pain. Chest x-ray and later CT a shows evidence of left lower lobe pneumonia. She had mild elevated troponin which trended down. EKG was unremarkable. CK-MB was normal range. Patient was started on empirical antibiotics. Her chest pain improved. Her GERD symptoms as well as abdominal fullness improved after giving laxative with good bowel movements. Patient was also started on PPI. Her persistent right hip pain started to improve with added pain regimen. She has been started on Celebrex for the next 5 days. She is advised to continue her home tramadol as well as [place] as needed. She will follow with orthopedics team at [place] for right hip surgery. Of note imaging studies of the right hip shows normal prosthesis in place. Her COVID screen was negative - Physical Exam General: Alert, Oriented x3, Obese HEENT: Atraumatic, Normocephalic Neck: Supple, 2+ carotid pulse no bruit, JVD not distended Respiratory: Clear to auscultation bilaterally, Normal air movement, Diminished Cardiovascular: No edema, Normal pulses, Regular rate/rhythm, Normal S1 S2 Gastrointestinal: Normal bowel sounds, Soft and benign, Non-distended Musculoskeletal: No clubbing, No swelling, Other (dsg over right hip, mild tenderness) Vital Signs/Physical Exam: Temp Pulse Resp BP Pulse Ox 99.0 F 89 18 171/81 H 96 11/17/21 08:00 11/17/21 09:27 11/17/21 09:27 11/17/21 09:27 11/17/21 09:27 Laboratory Data at Discharge: WBC 9.80 K/uL (4.3-10.9) D 11/17/21 05:57 Hgb 8.0 g/dL (12.0-15.0) L 11/17/21 05:57 Hct 25.2 % (36.0-45.0) L 11/17/21 05:57 Plt Count 459 K/uL (152-406) H 11/17/21 05:57 PT 14.2 SECONDS (9.5-12.5) H 11/16/21 07:43 INR 1.23 11/16/21 07:43 Sodium 138 mmol/L (136-145) 11/17/21 05:57 Potassium 3.9 mmol/L (3.5-5.1) 11/17/21 05:57 BUN 15 mg/dL (7-18) 11/17/21 05:57 Creatinine 0.76 mg/dL (0.55-1.3) 11/17/21 05:57 Glucose 196 mg/dL (74-106) H 11/17/21 05:57 Magnesium 1.9 mg/dL (1.8-2.4) 11/16/21 07:43 Total Bilirubin 0.6 mg/dL (0.2-1.0) 11/17/21 05:57 AST 21 U/L (15-37) 11/17/21 05:57 ALT 23 U/L (12-78) 11/17/21 05:57 Alkaline Phosphatase 68 U/L (45-117) 11/17/21 05:57 Triglycerides 166 mg/dL (<150) H 11/17/21 05:57 Cholesterol 152 mg/dL (<200) 11/17/21 05:57 HDL Cholesterol 38 mg/dL (40-60) L 11/17/21 05:57 Cholesterol/HDL Ratio 4.00 11/17/21 05:57 Home Medications: Amox/Clavulanate [Augmentin 875-125 Tab] 1 each PO BID #20 tab 11/17/21 Apixaban [Eliquis] 5 mg PO BID 11/17/21 Atorvastatin Calcium 20 mg PO BEDTIME 11/17/21 Benzonatate [Tessalon Perle] 200 mg PO TID PRN #15 cap 11/17/21 Celecoxib [Celebrex] 100 mg PO BID #10 capsule 11/17/21 Famotidine [Pepcid] 20 mg PO BID #30 tablet 11/17/21 Gabapentin 300 mg PO BID 11/17/21 Glipizide/Metformin HCl [Glipizide-Metformin 2.5-250 mg] 1 tab PO BID 11/17/21 Lisinopril [Zestril] 20 mg PO BID 11/17/21 Metformin HCl [Metformin HCl ER] 750 mg PO BID 11/17/21 bisacodyL [Dulcolax*] 10 mg PO DAILY PRN #10 tab 11/17/21 New Medications: Amox/Clavulanate [Augmentin 875-125 Tab] 1 each PO BID #20 tab Celecoxib [Celebrex] 100 mg PO BID #10 capsule bisacodyL [Dulcolax*] 10 mg PO DAILY PRN #10 tab PRN Reason: Constipation Famotidine [Pepcid] 20 mg PO BID #30 tablet Benzonatate [Tessalon Perle] 200 mg PO TID PRN #15 cap PRN Reason: Cough Diet: [facility] Followup: NONE,NONE [Primary Care Provider] - Time spent managing pt's care (in minutes): 35
== END 2021-11-17 12:34 | disposition home or self-care (01) ==
LOC: ER 07:16 → ERHOLD 16:16 → 2ND 20:32
PROVIDERS: ADMIT Internal Medicine; ATTEND Internal Medicine
DX: J18.9 Pneumonia, unspecified organism (principal); R07.89 Other chest pain; M25.551 Pain in right hip; I10 Essential (primary) hypertension; E11.9 Type 2 diabetes mellitus without complications; K21.9 Gastro-esophageal reflux disease without esophagitis; K59.00 Constipation, unspecified; E78.00 Pure hypercholesterolemia, unspecified; R77.8 Other specified abnormalities of plasma proteins; D64.9 Anemia, unspecified; E66.9 Obesity, unspecified; Z68.43 Body mass index [BMI] 50.0-59.9, adult; Z79.01 Long term (current) use of anticoagulants; Z96.641 Presence of right artificial hip joint; Z86.718 Personal history of other venous thrombosis and embolism; Z20.822 Contact with and (suspected) exposure to COVID-19
CPT/HCPCS: 96361; 93005; 87040; 85025 ×2; 80048; 36415; 83735; 85610; 80061; 82947 ×3; 85379; 80076; 84484 ×3; 82553 ×3; 80053; 83880; 71275; 74176; 71045; 73502; 93971; 96375; 96374; 99285; U0003; Q9967; J2270; J7040; J7030; J2405; G0378 ×3

== ENCOUNTER 2023-08-02 22:52 | Inpatient (IN) | payer OTHER ==
--- OUTSIDE RECORDS SUMMARY | 2023-08-02 22:59 | XMS REPORT | Continuity of Care Document ---
:1970 Author Organization [facility] t Address [address] [facility] [address] [place] [address] Care Team Providers Name Role Phone Fer Jasso Primary Care Physician RIVER OLIVEIRA V Attending Clinician Unavailable JAVIER CARROLL K.HJasbir Attending Clinician Unavailable JEREMIAS ACOSTA Attending Clinician Unavailable Javier Carroll MD KJasbirHJasbir Attending Clinician TRELL GTZ Attending Clinician Unavailable TRELL GTZ Attending Clinician Unavailable Damien Sommer RN Attending Clinician Unavailable RADIOLOGY Attending Clinician Unavailable Fer Jasso Attending Clinician DONAL DENT Attending Clinician Unavailable Jon Howard DO Attending Clinician Donal Dent MD Attending Clinician Jojo Adams MA Attending Clinician Unavailable YUMIKO ALLEN Attending Clinician Unavailable Yumiko Allen MD Attending Clinician Unknown, Attending Attending Clinician Unavailable Doctor Unassigned, [place] Attending Clinician Unavailable WENDY SREEKANTH Attending Clinician Unavailable Erum Attending Clinician Unavailable Fer Jasso MD Attending Clinician Srinivas aJmes MD Attending Clinician Ramses Tabor MA Attending Clinician Unavailable Federico SOLE STITCHER HAND, Adrianne Attending Clinician ADRIANNE CABALLERO Attending Clinician Unavailable Lexus Beavers Attending Clinician Unavailable Papi Arias Attending Clinician Unavailable Gavin Sahni RN Attending Clinician Unavailable Only, Ang Db Test Attending Clinician Unavailable FER JASSO Attending Clinician Unavailable KATHY PEREZ Attending Clinician Unavailable HORTENCIA MARQUEZ Attending Clinician Unavailable Renetta LOZADA, Hortencia Attending Clinician Nurse, Adc Pob Immunization Attending Clinician Unavailable Abelardo Gongora DO Attending Clinician ABELARDO GONGORA Attending Clinician Unavailable Tech, [facility] Attending Clinician Unavailable Trell Gtz MD Attending Clinician Only, Adc Test Attending Clinician Unavailable Lab, Ang - Db Attending Clinician Unavailable Vaccine, Ang Db Cbc Fam Attending Clinician Unavailable Lab, Adc Fam Pob I Attending Clinician Unavailable MILLIE RODRIGUEZ Attending Clinician Unavailable Selma Patel Attending Clinician Unavailable José Winkler MD Attending Clinician RIVER OLIVEIRA V Admitting Clinician Unavailable DONAL DENT Admitting Clinician Unavailable Donal Dent MD Admitting Clinician Erum Admitting Clinician Unavailable Lexus Beavers Admitting Clinician Unavailable Papi Arias Admitting Clinician Unavailable Payers Payer Name Policy Type Policy Number Effective Date Expiration Date Dima altman [facility] [id number] 2022 [facility] 00:00:00 [facility] [id number] 2022 [employer] PLUS 00:00:00 [facility] [id number] 2022 [place] 00:00:00 PLUS (MEDICARE REPLACEMENT HMO) MEDICARE B-[place]: [id number] 2022 NOVITAS [employer] 00:00:00 [place] (EPO) [id number] 2021 00:00:00 BLUE ESSENTIALS HMO [id number] 2021 00:00:00 Problems Condition Condition Condition Status Onset Resolution Last Treating Co mments Source Name Details Category Date Date Treatment Clinician Date Chest Chest Disease Active 2022-10 Univers pain, pain, 0-15 ity of unspecif[place] d type d type 00 Medical Branch Dyslipidem Dyslipidem Disease Active 2022-10 U nivers ia ia 0-15 ity of 00:00: [place] 00 Medical Branch Drug Drug Disease Active Methodi induced induced 06-07 constipati constipati 00:00: Ho spita on on 00 l Polyarthri Polyarthri Disease Active M ethodi tis with tis with 06-07 st positive positive 00:00: Hospit a rheumatoid rheumatoid 00 l factor factor Vitamin D Vitamin D Disease Active Met hodi deficiency deficiency 04-08 00:00: Hospita 00 l Bipolar Bipolar Disease Active Methodi disorder disorder 04-06 00:00: Hospita 00 l Depression Depression Disease Active M ethodi 04-06 00:00: Hospita 00 l History of History of Disease Active M ethodi DVT (deep DVT (deep 11-07 vein vein 00:00: Hospita thrombosis thrombosis 00 l ) ) 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) (current) [address] st use of use of 00:00: Hospita anticoagul anticoagul 00 l ants ants Osteoarthr Osteoarthr Problem Active A zalea itis of itis of 8-31 Orthope knee Knee 00:00: dic 00 Sports Medicin e Prosthetic Prosthetic Problem Active A [facility]alea arthroplas Arthroplas 2-21 Or thope ty of the ty of the 00:00: dic hip Hip 00 Sports Medicin e Localized, Localized, Problem Active A zalea primary Primary 1-17 Orthope osteoarthr Osteoarthr 00:00: di c itis itis 00 Sports Medicin e Idiopathic Idiopathic Problem Active A zalea osteoarthr Osteoarthr 1-13 Or thope itis itis 00:00: dic 00 Sports Medicin e Body mass Body Mass Problem Active Aza maddison index 40+ Index 40+ 1-13 Orth ope - severely - Severely 00:00: di c obese Obese 00 Sports Medicin e Hip pain Hip Pain Problem Active Azale a 1-06 Orthope 00:00: dic 00 Sports Medicin e Pain of Pain of Problem Active Mariah right knee Right Knee 1-06 Or thope joint Joint 00:00: dic 00 Sports Medicin e Pain of Pain of Problem Active Mariah bilateral Bilateral 1-06 Orth ope knee Knee 00:00: dic joints Joints 00 Sports Medicin e Severe Severe Disease Active 2020-[address] [facility] [address] e sleep e sleep 00:00: Hospita apnea apnea 00 l Essential Essential Disease Active Met hodi hypertensi hypertensi 04-12 st on on 00:00: Hospita 00 l Acute deep Acute deep Disease Active U nivers vein vein 6- ity of thrombosis [place] 00:00: [place] (DVT) of (DVT) of 00 Medica l right right Branch lower lower extremity, extremity, unspecifie unspecifie d vein d vein Morbid Morbid Disease Active Methodi obesity obesity 10-12 st 00:00: Hospita 00 l Mixed Mixed Disease Active Methodi hyperlipid hyperlipid 10-10 emia emia 00:00: Hospita 00 l Osteoarthr Osteoarthr Disease Active 0 M ethodi itis of itis of 10-10 right hip right hip 00:00: Hosp jamel 00 l 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 2 10-10 diabetes diabetes 00:00: Hospit a mellitus mellitus 00 l with with microalbum microalbum inuria, inuria, without without long-term long-term current current use of use of insulin insulin Hyperchole Hyperchole Disease Active U nivers sterolemia sterolemia 1-10 it y of 00:00: [place] 00 Medical Branch Bursitis Bursitis Disease Active Metho di of hip, of hip, 10-24 st right right 00:00: Hospita 00 l Allergies, Adverse Reactions, Alerts Allergy Allergy Status Severity Reaction(s) Onset Inactive Treating Comm ents Source Name Type Date Date Clinician Semaglut Propensi Active Other (See Abdominal Methodi ray ty to Comments) 06-[address] adverse 00:00: t with Hospita reaction 00 elevated l s to lipase, drug constipat ion No Known DA Active U [facility] Allergie 2-10 [place] s 00:00: Orthope 00 dic Hospita l No Known DA Active U [facility] Allergie 10-25 Clear s 00:00: Nichole 00 [facility] No Known DA Active U [facility] Allergie 2 [place] s 00:00: d 00 Medical [place] NO KNOWN Drug Active Univers ALLERGIE Class ity of [facility] Family History Family Member Diagnosis Comments Start Date Stop Date Source Natural sister Diabetes [facility] Natural sister Heart failure [facility] Natural sister Hypertension [facility] Social History Social Habit Start Date Stop Date Quantity Comments Source Sexual orientation [facility] Gender identity [facility] [place] [facility] History SDOH University o f Alcohol Std Drinks [place] [facility] History SDNY University o f Alcohol Binge [place] [facility] al [facility] History [facility] University o f Alcohol Comment [place] Med ical Branch Alcohol intake 2023-06-11 2023-06-11 Lifetime Buddhist 00:00:00 00:00:00 non-drinker Hospital (finding) History of Social 2023-06-11 2023-06-[address] function 00:00:00 00:00:00 Hospital Tobacco use and 2022-11-06 2022-11-06 Smokeless Buddhist exposure 00:00:00 00:00:00 tobacco non-user Hospital Exposure to 2022-09-23 2022-10-03 Not sure University SARS-CoV-2 (event) 00:00:00 15:42:00 [place] [facility] History SDOH 2019-10-10 2019-10-10 1 University o f Alcohol Frequency 00:00:00 00:00:00 [facility] Sex Ass[birth year] At [birth year] Buddhist 00:00:00 00:00:00 Hospital Smoking Status Start Date Stop Date Source Never smoked tobacco [facility] Medications Ordered Filled Start Stop Current Ordering Indication Dosage Frequency Signature Comments Components Source Medication Medication Date Date Medication? Clinician (SIG) Name Name anton 2022-10 Yes 20mg 20 mg, Univ ers n (LIPITOR) 0-16 Oral, QHS, it y of tablet 20 02:00: [place] dose [place] mg 00 on [facility] 07/15/23 Branch at 2100, Until Discontinu ed, Routine apixaban 2022-10 Yes [id number] 5mg 5 mg, Univers (ELIQUIS) 0-16 Oral, BID, ity of tablet 5 mg 01:00: First dose [place] 00 on [facility] 07/15/23 Branch at 2000, Until Discontinu ed, Routine
Indicatio ns: DVT/PE aspirin 81 2022-10- Yes [id number] 81mg Take 1 Univers mg chewable 0-16 11-16 tablet by it y of tablet 00:00: 05:59 mouth in [place] 00 :00 [facility] for 30 days. aspirin 81 2022-10- Yes [id number] 81mg Take 1 Univers mg chewable 0-16 11-16 tablet by it y of tablet 00:00: 05:59 mouth in [place] 00 :00 [facility] for 30 days. aspirin 81 2022-10- Yes [id number] 81mg Take 1 Univers mg chewable 0-16 11-16 tablet by it y of tablet 00:00: 05:59 mouth in [place] 00 :00 [facility] for 30 days. aspirin 81 2022-10- Yes [id number] 81mg Take 1 Univers mg chewable 0-16 11-16 tablet by it y of tablet 00:00: 05:59 mouth in [place] 00 :00 [facility] for 30 days. gabapentin 2022-10 Yes 300mg 300 mg, Uni vers (NEURONTIN) 0-15 Oral, TID, it y of capsule 300 19:00: First dose [place] mg 00 on [facility] 07/15/23 Branch at 1400, Until Discontinu ed, Routine empaglifloz 2022-10- No Take by Spenser schmitt in 0-15 10-15 mouth ity of ([place]ARD[place] 18:27: 00:00 [place]. [place] ORAL) 24 :00 Medical Branch lisinopriL 2022-10 Yes 10mg 10 mg, Unive rs (PRINIVIL,Z 0-15 Oral, ity of ESTRIL) 14:00: DAILY, [place] tablet 10 00 First dose Medi bib mg on [place] [facility] 07/15/23 at 0900, Until Discontinu ed, Routine fluticasone 2022-10 Yes 1{spray 1 [place], Univers propionate 0-15 } Nasal, ity of 50 14:00: DAILY, [place] mcg/actuati 00 First dose Me dical on nasal on [place] Branch spray 1 07/15/23 [place] at 0900, Until Discontinu ed, Routine empaglifloz 2022-10 Yes 10mg 10 mg, Univ ers in 0-15 Oral, ity of (JARDIANCE) 14:00: DAILY, [place] tablet 10 00 First dose Medi bib mg on [place] [facility] 07/15/23 at 0900, Until Discontinu ed
Is this a home medication ? Yes
Has this patient brought their own medication ? No
Oscarr simón will dispense the medication from inpatient. Pharmacy will dispense the medication from inpatient.
Inpati ent ordering of this medication is not allowed unless the patient is maintained on this medication at home, and home supply is unavailabl e. Does this order meet the criteria for inpatient ordering? Yes aspirin 2022-10 Yes 81mg 81 mg, Univers chewable 0-15 Oral, ity of tablet 81 14:00: DAILY, [place] mg 00 First dose Medical on [place] [facility] 07/15/23 at 0900, Until Discontinu ed, Routine sulfur 2022-10- No [id number] 5mL 5 mL, Unive rs hexafluorid 0-15 10-15 Intravenou i ty of e microsphr 13:45: 13:31 s, ONCE, 1 [place] (LUMASON) 00 :00 dose, On Medica l injection 5 [place] [facility] mL 07/15/23 at 0845, Routine
history faculty member approving Restricted medication : JAVIER CARROLL glimepiride 2022-10 Yes 4mg 4 mg, Unive rs (AMARYL) 0-15 Oral, BID ity of tablet 4 mg 13:30: MEALS, [place] 00 First dose Medical on [facility] 07/15/23 at 0830, Until Discontinu ed, Routine metFORMIN 2022-10 Yes 500mg 500 mg, Univ ers (GLUCOPHAGE 0-15 Oral, BID ity of ) tablet 13:30: MEALS, [place] 500 mg 00 First dose Medical on [facility] 07/15/23 at 0830, Until Discontinu ed traMADoL 2022-10 Yes 50mg 50 mg, Univers (ULTRAM) 0-15 Oral, ity of tablet 50 13:19: Q6HPRN, [place] mg 43 Starting Medical on [facility] 07/15/23 at 0819, Until Discontinu ed, Routine, Pain (scale 4-6) metoprolol 2022-10 Yes 12.5mg 12.5 mg, U nivers tartrate 0-15 Oral, BID, ity o f (LOPRESSOR) 13:00: First dose [place] tablet 12.5 00 on [place] Medica l mg 07/15/23 Branch at 0800, Until Discontinu ed, Routine pantoprazol 2022-10 Yes 40mg 40 mg, Univ ers e 0-15 Oral, ity of (PROTONIX) 11:30: QAM-0600, [place] EC tablet 00 First dose Medi bib 40 mg on [facility] 07/15/23 at 0630, Until Discontinu ed, Routine NaCl 0.9% 2022-10 Yes 1000mL at 50 Unive rs (NS) IV 0-15 mL/hr, IV ity of infusion 11:30: Infusion, [place] 1,000 mL 00 CONTINUOUS Medic al , Starting Branch on [place] 07/15/23 at 0630, Until Discontinu ed, Routine ondansetron 2022-10 Yes 4mg 4 mg, Slow Univers (ZOFRAN 0-15 IV Push, ity of (PF)) 11:14: Q6HPRN, [place] injection 4 16 Starting Medi bib mg on [facility] 07/15/23 at 0614, Until Discontinu ed, Routine, Nausea and Vomiting (N/V) morpHINE (2 2022-10- Yes 2mg 2 mg, Slow Univers mg/mL) 0-15 10-16 IV Push, ity of injection 2 11:14: 11:13 Q4HPRN, [place] mg 06 :06 Starting Medical on [facility] 07/15/23 at 0614, Until 07/16/23 at 0613, Routine, Pain (scale 7-10) acetaminoph 2022-10 Yes 650mg 650 mg, Un oskar en 0-15 Oral, ity of (TYLENOL) 11:14: Q6HPRN, [place] tablet 650 01 Starting Medic al mg on [facility] 07/15/23 at 0614, Until Discontinu ed, Routine, Pain (scale 1-3) iopamidol 2022-10- No [id number] 100mL 100 mL, Univers (ISOVUE 0-15 10-15 Intravenou ity o f 370-500 mL) 10:30: 10:30 s, ONCE, 1 [place] injection 00 :00 dose, On Medica l 100 mL [facility] 07/15/23 at 0530, Routine empaglifloz 2022-10 Yes [id number] 10mg Take 1 Univers in 0-15 tablet by ity of (JARDIANCE) 00:00: mouth in [place] 10 mg 00 the Medical morning. Branch empaglifloz 2022-10 Yes [id number] 10mg Take 1 Univers in 0-15 tablet by ity of (JARDIANCE) 00:00: mouth in [place] 10 mg 00 the Medical morning. Branch empaglifloz 2022-10 Yes [id number] 10mg Take 1 Univers in 0-15 tablet by ity of (JARDIANCE) 00:00: mouth in [place] 10 mg 00 the Medical morning. Branch empaglifloz 2022-10 Yes [id number] 10mg Take 1 Univers in 0-15 tablet by ity of (JARDIANCE) 00:00: mouth in [place] 10 mg 00 the Medical morning. Branch metoprolol 2022-10- Yes [id number] 12.5mg Take 0.5 Univers tartrate 25 0-15 11-15 tablets by i ty of mg tablet 00:00: 05:59 mouth in [place] 00 :00 the Medical morning Branch and 0.5 tablets in the evening. Do all this for 30 days. metoprolol 2022-10- Yes [id number] 12.5mg Take 0.5 Univers tartrate 25 0-15 11-15 tablets by i ty of mg tablet 00:00: 05:59 mouth in [place] 00 :00 the Medical morning Branch and 0.5 tablets in the evening. Do all this for 30 days. metoprolol 2022-10- Yes [id number] 12.5mg Take 0.5 Univers tartrate 25 0-15 11-15 tablets by i ty of mg tablet 00:00: 05:59 mouth in [place] 00 :00 the Medical morning Branch and 0.5 tablets in the evening. Do all this for 30 days. metoprolol 2022-10- Yes [id number] 12.5mg Take 0.5 Univers tartrate 25 0-15 11-15 tablets by i ty of mg tablet 00:00: 05:59 mouth in [place] 00 :00 the Medical morning Branch and 0.5 tablets in the evening. Do all this for 30 days. empaglifloz Yes [id number] 10mg QD Take 1 Methodi in 06-11 tablet (10 st (Jardiance) 00:00: mg total) H ospita 10 mg 00 by mouth l tablet daily. tablet STOP OZEMPIC. metFORMIN Yes [id number] 1000mg Q.5D Take 2 Methodi XR -[address] (GLUCOPHAGE 00:00: (1,000 mg H ospita -XR) 500 mg 00 total) by l 24 hr mouth 2 tablet (two) times a day with meals. polyethylen Yes [id number] 17g QD Take 17 g Methodi e glycol 06-[address] (MIRALAX) 00:00: daily. Hospit a 17 gram 00 l packet lisinopriL 0 Yes [id number] 5mg QD Take 1 M ethodi (PRINIVIL) 06-07 tablet (5 st 5 mg tablet 00:00: mg total) H ospita 00 by mouth l daily. molnupiravi 2022-0 Yes [id number] 800mg Take 4 Univers r 200 mg 8-21 capsules ity of capsule 00:00: by mouth [place] 00 every 12 Medical (twelve) Branch hours. benzonatate 2022-0 Yes [id number] 200mg Take 2 Univers 100 mg 8-21 capsules ity of capsule 00:00: by mouth [place] 00 every 8 Medical (eight) Branch hours as needed for Cough. ondansetron 2022-0 Yes [id number] 4mg Take 1 Univers 4 mg 8-21 tablet by ity of disintegrat 00:00: mouth [place] ing tablet 00 every 8 Medica l (eight) Branch hours as needed for Nausea and Vomiting (N/V). fluticasone 2022-0 Yes [id number] 1{spray Use 1 Univers propionate 8-21 } [place] in ity o f 50 00:00: each [place] mcg/actuati 00 nostril in Me dical on nasal the Branch spray morning. azelastine 2022-0 Yes [id number] 1{spray Use 1 Univers 137 mcg 8-21 } [place] in ity of (0.1 %) 00:00: each [place] nasal spray 00 nostril in Me dical the Branch morning and 1 [place] in the evening. Use in each nostril as directed fluticasone 2022-0 Yes [id number] 1{spray Use 1 Univers propionate 8-21 } [place] in ity o f 50 00:00: each [place] mcg/actuati 00 nostril in Me dical on nasal the Branch spray morning. fluticasone 2022-0 Yes [id number] 1{spray Use 1 Univers propionate 8-21 } [place] in ity o f 50 00:00: each [place] mcg/actuati 00 nostril in Me dical on nasal the Branch spray morning. fluticasone 2022-0 Yes [id number] 1{spray Use 1 Univers propionate 8-21 } [place] in ity o f 50 00:00: each [place] mcg/actuati 00 nostril in Me dical on nasal the Branch spray morning. fluticasone 2022-0 Yes [id number] 1{spray Use 1 Univers propionate 8-21 } [place] in ity o f 50 00:00: each [place] mcg/actuati 00 nostril in Me dical on nasal the Branch spray morning. molnupiravi 2022-0 2022- No [id number] 800mg Take 4 Univers r 200 mg 8-21 10-15 capsules ity of capsule 00:00: 00:00 by mouth [place] 00 :00 every 12 Medical (twelve) Branch hours. benzonatate 2022-0 2022- No [id number] 200mg Take 2 Univers 100 mg 8-21 10-15 capsules ity of capsule 00:00: 00:00 by mouth [place] 00 :00 every 8 Medical (eight) Branch hours as needed for Cough. ondansetron 2022- No [id number] 4mg Take 1 Univers 4 mg 8-21 10-15 tablet by ity of disintegrat 00:00: 00:00 mouth [place] tablet 00 :00 every 8 Medica l (eight) Branch hours as needed for Nausea and Vomiting (N/V). azelastine 2022- No [id number] 1{spray Use 1 Univers 137 mcg 8-21 10-15 } [place] in ity of (0.1 %) 00:00: 00:00 each [place] nasal spray 00 :00 nostril in Pr dical the Branch morning and 1 [place] in the evening. Use in each nostril as directed glimepiride Yes [id number] 4mg Q.5D Take 1 Methodi (AMARYL) 4 - tablet (4 st MG tablet 00:00: mg total) Hos mary 00 by mouth 2 l (two) times a day with meals. gabapentin Yes [id number] 300mg Q.5D Take 1 Methodi (NEURONTIN) 04-[address] 300 mg 00:00: (300 mg Hospita capsule 00 total) by l mouth 2 (two) times a day. ergocalcife Yes [id number] Q7D Take 1 Methodi rol 04-[address] (VITAMIN 00:00: (50,000 Hospit a D2) 50,000 00 Units l unit total) by capsule mouth once a week. Take with food. atorvastati Yes [id number] 20mg QD Take 1 Methodi n (LIPITOR) - tablet (20 st 20 mg 00:00: mg total) Hospita tablet 00 by mouth l daily. semaglutide 2022- No [id number] 1mg Q1W Inject Methodi (Ozempic) 1 04-06 0.75 mL (1 s t mg/dose (4 00:00: 00:00 mg total) H ospita mg/3 mL) 00 :00 under the l subcutaneou skin every s pen 7 days. metFORMIN 0 2022- No [id number] 750mg Q.5D Take 1 Methodi XR 04-[address] (GLUCOPHAGE 00:00: 00:00 (750 mg Ho spita -XR) 750 mg 00 :00 total) by l 24 hr mouth 2 tablet (two) times a day. lisinopriL 2022-0 3- No [id number] 5mg QD Take 1 Methodi (PRINIVIL) 04-06 tablet (5 st 5 mg tablet 00:00: 00:00 mg total) Hospita 00 :00 by mouth l daily. ergocalcife 2022-0 Yes [id number] Q7D Take 1 Methodi rol -[address] (VITAMIN 00:00: (50,000 Hospit a D2) 50,000 00 Units l unit total) by capsule mouth once a week. Take with food. ergocalcife 2022-0 3- No [id number] Q7D Take 1 Methodi rol 2-19 - capsule st (VITAMIN 00:00: 00:00 (50,000 Hospi ta D2) 50,000 00 :00 Units l unit total) by capsule mouth once a week. Take with food. atorvastati 2022-0 Yes [id number] 20mg QD Take 1 Methodi n (LIPITOR) 2-06 tablet (20 st 20 mg 00:00: mg total) Hospita tablet 00 by mouth l daily. gabapentin 2022-0 Yes [id number] 300mg Q.5D Take 1 Methodi (NEURONTIN) 2-[address] 300 mg 00:00: (300 mg Hospita capsule 00 total) by l mouth 2 (two) times a day. glimepiride 2022-0 Yes [id number] 4mg Q.5D Take 1 Methodi (AMARYL) 4 2-06 tablet (4 st MG tablet 00:00: mg total) Hos mary 00 by mouth 2 l (two) times a day with meals. lisinopriL 2022-0 Yes [id number] 5mg QD Take 1 M ethodi (PRINIVIL) 2-06 tablet (5 st 5 mg tablet 00:00: mg total) H ospita 00 by mouth l daily. metFORMIN 3-0 Yes [id number] 750mg Q.5D Take 1 M ethodi XR 2-[address] (GLUCOPHAGE 00:00: (750 mg Hos mary -XR) 750 mg 00 total) by l 24 hr mouth 2 tablet (two) times a day. semaglutide Yes [id number] 0.25mg inj Methodi (Ozempic) 2-[address] 0.25 mg or 00:00: 4 weeks Hosp jamel 0.5 mg(2 00 then l mg/1.5 mL) increase subcutaneou to 0.5mg s pen qweek and stay on this dose flash 0 Yes [id number] Check Methodi glucose 2- glucose st sensor 00:00: BID; Dx Hospita (FreeStyle 00 code l [place] 2 E11.65 Sensor) kit flash Yes [id number] 1{each} 1 each as Methodi glucose 2- needed (to st scanning 00:00: read Hospita reader 00 glucose). l (FreeStyle [place] 2 [place]) [facility] flash 202- No [id number] Check Method i glucose 11-[address] sensor 00:00: 00:00 BID; Dx Hospita (FreeStyle 00 :00 code l [place] 2 E11.65 Sensor) kit flash 202- No [id number] 1{each} 1 each as Methodi glucose 2-03 09- needed (to st scanning 00:00: 00:00 read Hospita reader 00 :00 glucose). l (FreeStyle [place] 2 [place]) [facility] atorvastati 2023- No [id number] 20mg QD Take 1 Methodi n (LIPITOR) 11-06 tablet (20 s t 20 mg 00:00: 00:00 mg total) Hospit a tablet 00 :00 by mouth l daily. gabapentin 2023- No [id number] 300mg Q.5D Take 1 Methodi (NEURONTIN) 11-[address] 300 mg 00:00: 00:00 (300 mg Hospita capsule 00 :00 total) by l mouth 2 (two) times a day. glimepiride 2023- No [id number] 4mg Q.5D Take 1 Methodi (AMARYL) 4 11-06 tablet (4 st MG tablet 00:00: 00:00 mg total) Ho spita 00 :00 by mouth 2 l (two) times a day with meals. lisinopriL 2022- No [id number] 5mg QD Take 1 Methodi (PRINIVIL) 11-06 tablet (5 st 5 mg tablet 00:00: 00:00 mg total) Hospita 00 :00 by mouth l daily. metFORMIN 2022- No [id number] 750mg Q.5D Take 1 Methodi XR 11-[address] (GLUCOPHAGE 00:00: 00:00 (750 mg Ho spita -XR) 750 mg 00 :00 total) by l 24 hr mouth 2 tablet (two) times a day. semaglutide 2022- No [id number] 0.25mg inj Methodi (Ozempic) 11-[address] 0.25 mg or 00:00: 00:00 4 weeks Hos mary 0.5 mg(2 00 :00 then l mg/1.5 mL) increase subcutaneou to 0.5mg s pen qweek and stay on this dose metroNIDAZO 2022- No [id number] 2000mg Take 4 Univers LE 500 mg 10-05 tablets by ity of tablet 00:00: 05:59 mouth [place] 00 :00 now for 1 Medical dose. Branch Nitrofurant 2022- No [id number] 100mg Take 1 Univers oin&Nit. 10-03 capsule by ity of Macrocryst 00:00: 05:59 mouth [place] 100 mg 00 :00 the Medical capsule morning Branch and 1 capsule in the evening. Do all this for 7 days. Nitrofurant 2022- No [id number] 100mg Take 1 Univers oin&Nit. 10-03 capsule by ity of Macrocryst 00:00: 05:59 mouth in [place] 100 mg 00 :00 the Medical capsule morning Branch and 1 capsule in the evening. Do all this for 7 days. Nitrofurant 2022- No [id number] 100mg Take 1 Univers oin&Nit. 10-03 capsule by ity of Macrocryst 00:00: 05:59 mouth in [place] 100 mg 00 :00 the Medical capsule morning Branch and 1 capsule in the evening. Do all this for 7 days. Nitrofurant 2022- No [id number] 100mg Take 1 Univers oin&Nit. 10-03 capsule by itmalena of Macrocryst 00:00: 05:59 mouth in [place] 100 mg 00 :00 the Medical capsule morning Branch and 1 capsule in the evening. Do all this for 7 days. Eliquis 5 2021-10 Yes 5mg Q.5D Take 1 Method i mg tablet 2-13 tablet ( 00:00: mg total) Hospita 00 by mouth 2 l (two) times a day. Eliquis 5 2021-10 Yes 5mg Q.5D Take 1 Method i mg tablet 2-13 tablet (5 00:00: mg total) [facility] 00 by mouth 2 l (two) times a day. gabapentin 2021-10- No TAKE 1 [facility] (NEURONTIN) 11-13 CAPSULE BY s t 300 mg 00:00: 00:00 MOUTH [facility] capsule 00 :00 THREE l TIMES DAILY NEEDED FOR NERVE PAIN glimepiride 2021-10- No 4mg Q.5D Take 1 [facility] (AMARYL) 4 11-13- tablet (4 st MG tablet 00:00: 00:00 mg total) [facility] 00 :00 by mouth 2 l (two) times a day with meals. gabapentin 2021-10- No TAKE 1 [facility] (NEURONTIN) 11-13 CAPSULE BY s t 300 mg 00:00: 00:00 MOUTH [facility] capsule 00 :00 THREE l TIMES DAILY NEEDED FOR NERVE PAIN glimepiride 2021-10- No 4mg Q.5D Take 1 [facility] (AMARYL) 4 11-13- tablet (4 st MG tablet 00:00: 00:00 mg total) [facility] 00 :00 by mouth 2 l (two) times a day with meals. hydrocodone hydrocodone No hydrocodon [facility] 10 10 2-08 e 10 [facility] mg-acetamin mg-acetamin 00:00: mg-acetami dic ophen 325 ophen 325 00 nophen 325 Sports mg tablet mg tablet mg tablet Medicin Take 1 Take 1 Take 1 e tablet by tablet by tablet by mouth every mouth every mouth four to six four to six every four hours as hours as to six needed for needed for hours as pain pain needed for pain ondansetron ondansetron No ondansetro [place] HCl 4 mg HCl 4 mg 2-08 n HCl 4 mg O [facility] tablet Take tablet Take 00:00: tablet dic 1 tablet by 1 tablet by 00 Take 1 Sports mouth every mouth every tablet by Medicin eight hours eight hours mouth e as needed as needed every For nausea For nausea eight hours as needed For nausea tramadol 50 tramadol 50 No tramadol [facility] mg tablet mg tablet 2-08 50 mg Orth [facility] Take 1 Take 1 00:00: tablet dic tablet by tablet by 00 Take 1 Spo rts mouth every mouth every tablet by Medicin four to six four to six mouth e hours as hours as every four needed for needed for to six pain pain hours as needed for pain dulaglutide Yes [id number] .75mg inject [facility] (TRULICITY) 1-14 0.75 mg ity o f 0.75 mg/0.5 00:00: under the [place] [facility] 00 skin Medical weekly. Branch dulaglutide Yes [id number] .75mg inject [facility] (TRULICITY) 1-14 0.75 mg ity o f 0.75 mg/0.5 00:00: under the [facility] skin Medical weekly. Branch dulaglutide Yes [id number] .75mg inject [facility] (TRULICITY) 1-14 0.75 mg ity o f 0.75 mg/0.5 00:00: under the [place] [facility] skin Medical weekly. Branch dulaglutide Yes [id number] .75mg inject [facility] (TRULICITY) 1-14 0.75 mg ity o f 0.75 mg/0.5 00:[facility] [facility] Branch dulaglutide Yes [id number] .75mg inject [facility] (TRULICITY) 1-14 0.75 mg ity o f 0.75 mg/0.5 00:00: under the [place] [facility] 00 skin Medical weekly. Branch dulaglutide Yes [id number] .75mg inject [facility] (TRULICITY) 1-14 0.75 mg ity o f 0.75 mg/0.5 00:00: under the [place] [facility] 00 skin Medical weekly. Branch dulaglutide Yes [id number] .75mg inject [facility] (TRULICITY) 1-14 0.75 mg ity o f 0.75 mg/0.5 00:00: under the [place] [facility] 00 skin Medical weekly. Branch dulaglutide Yes [id number] .75mg inject [facility] (TRULICITY) 1-14 0.75 mg ity o f 0.75 mg/0.5 00:00: under the [place] [facility] 00 skin Medical weekly. Branch dulaglutide Yes [id number] .75mg inject [facility] (TRULICITY) 1-14 0.75 mg ity o f 0.75 mg/0.5 00:00: under the [place] [facility] 00 skin Medical weekly. Branch dulaglutide Yes [id number] .75mg inject [facility] (TRULICITY) 1-14 0.75 mg ity o f 0.75 mg/0.5 00:00: under the [place] [facility] 00 skin Medical weekly. Branch dulaglutide Yes [id number] .75mg inject [facility] (TRULICITY) 1-14 0.75 mg ity o f 0.75 mg/0.5 00:00: under the [place] [facility] 00 skin Medical weekly. Branch dulaglutide Yes [id number] .75mg inject [facility] (TRULICITY) 1-14 0.75 mg ity o f 0.75 mg/0.5 00:00: under the [place] [facility] 00 skin Medical weekly. Branch dulaglutide Yes [id number] .75mg inject [facility] (TRULICITY) 1-14 0.75 mg ity o f 0.75 mg/0.5 00:00: under the [place] mL [facility] 00 skin Medical weekly. Branch dulaglutide Yes [id number] .75mg inject [facility] (TRULICITY) 1-14 0.75 mg ity o f 0.75 mg/0.5 00:00: under the [place] [facility] 00 skin Medical weekly. Branch dulaglutide 2022- No [id number] .75mg inject [facility] (TRULICITY) 1-14 10-15 0.75 mg ity of 0.75 mg/0.5 00:00: 00:00 under the [place] mL [facility]nI[facility] 00 :00 skin Medical weekly. Branch apixaban 2020-10 Yes [id number] 5mg Take 1 [facility] (ELIQUIS) 5 2-21 tablet by ity of mg tablet 00:00: mouth 2 [place] (two) Medical times [place] daily. Indication s: blood clot in a deep vein of the extremitie s fluconazole 2020-10 Yes [id number] 100mg Take 1 [facility] 100 mg 2-21 tablet by ity of tablet 00:00: mouth [place] 00 daily. Medical Branch apixaban 2020-10 Yes [id number] 5mg Take 1 [facility] (ELIQUIS) 5 2-21 tablet by ity of mg tablet 00:00: mouth 2 [place] (two) Medical times [place] daily. Indication s: blood clot in a deep vein of the extremitie s fluconazole 2020-10 Yes [id number] 100mg Take 1 [facility] 100 mg 2-21 tablet by ity of tablet 00:00: mouth [place] 00 daily. Medical Branch apixaban 2020-10 Yes [id number] 5mg Take 1 [facility] (ELIQUIS) 5 2-21 tablet by ity of mg tablet 00:00: mouth [place] (two) Medical times [place] daily. Indication s: blood clot in a deep vein of the extremitie s fluconazole 2020-10 Yes [id number] 100mg Take 1 [facility] 100 mg 2-21 tablet by ity of tablet 00:00: mouth [place] 00 daily. Medical Branch apixaban 2020-10 Yes [id number] 5mg Take 1 [facility] (ELIQUIS) 5 2-21 tablet by ity of mg tablet 00:00: mouth 2 [place] (two) Medical times [place] daily. Indication s: blood clot in a deep vein of the extremitie s fluconazole 2020-10 Yes [id number] 100mg Take 1 [facility] 100 mg 2-21 tablet by ity of tablet 00:00: mouth [place] 00 daily. Medical Branch apixaban 2020-10 Yes [id number] 5mg Take 1 [facility] (ELIQUIS) 5 2-21 tablet by ity of mg tablet 00:00: mouth 2 [place] (two) Medical times Branch daily. Indication s: blood clot in a deep vein of the extremitie s fluconazole 2020-10 Yes [id number] 100mg Take 1 [facility] 100 mg 2-21 tablet by ity of tablet 00:00: mouth [place] 00 daily. Medical Branch apixaban 2020-10 Yes [id number] 5mg Take 1 [facility] (ELIQUIS) 5 2-21 tablet by ity of mg tablet 00:00: mouth 2 [place] 00 (two) Medical times Branch daily. Indication s: blood clot in a deep vein of the extremitie s fluconazole 2020-10 Yes [id number] 100mg Take 1 [facility] 100 mg 2-21 tablet by ity of tablet 00:00: mouth [place] 00 daily. Medical Branch apixaban 2020-10 Yes [id number] 5mg Take 1 [facility] (ELIQUIS) 5 2-21 tablet by ity of mg tablet 00:00: mouth 2 [place] 00 (two) Medical times Branch daily. Indication s: blood clot in a deep vein of the extremitie s fluconazole 2020-10 Yes [id number] 100mg Take 1 [facility] 100 mg 2-21 tablet by ity of tablet 00:00: mouth [place] 00 daily. Medical Branch apixaban 2020-10 Yes [id number] 5mg Take 1 [facility] (ELIQUIS) 5 2-21 tablet by ity of mg tablet 00:00: mouth 2 [place] 00 (two) Medical times Branch daily. Indication s: blood clot in a deep vein of the extremitie s fluconazole 2020-10 Yes [id number] 100mg Take 1 [facility] 100 mg 2-21 tablet by ity of tablet 00:00: mouth [place] 00 daily. Medical Branch apixaban 2020-10 Yes [id number] 5mg Take 1 [facility] (ELIQUIS) 5 2-21 tablet by ity of mg tablet 00:00: mouth 2 [place] 00 (two) Medical times Branch daily. Indication s: blood clot in a deep vein of the extremitie s fluconazole 2020-10 Yes [id number] 100mg Take 1 [facility] 100 mg 2-21 tablet by ity of tablet 00:00: mouth [place] 00 daily. Medical Branch apixaban 2020-10 Yes [id number] 5mg Take 1 [facility] (ELIQUIS) 5 2-21 tablet by ity of mg tablet 00:00: mouth 2 [place] 00 (two) Medical times Branch daily. Indication s: blood clot in a deep vein of the extremitie s fluconazole 2020-10 Yes [id number] 100mg Take 1 [facility] 100 mg 2-21 tablet by ity of tablet 00:00: mouth [place] 00 daily. Medical Branch apixaban 2020-10 Yes [id number] 5mg Take 1 [facility] (ELIQUIS) 5 2-21 tablet by ity of mg tablet 00:00: mouth 2 [place] 00 (two) Medical times Branch daily. Indication s: blood clot in a deep vein of the extremitie s fluconazole 2020-10 Yes [id number] 100mg Take 1 [facility] 100 mg 2-21 tablet by ity of tablet 00:00: mouth [place] 00 daily. Medical Branch apixaban 2020-10 Yes 1473 5mg Take 1 [facility] (ELIQUIS) 5 2-21 tablet by ity of mg tablet 00:00: mouth 2 [place] 00 (two) Medical times Branch daily. Indication s: blood clot in a deep vein of the extremitie s fluconazole 2020-10 Yes [id number] 100mg Take 1 [facility] 100 mg 2-21 tablet by ity of tablet 00:00: mouth [place] 00 daily. Medical Branch apixaban 2020-10 Yes [id number] 5mg Take 1 [facility] (ELIQUIS) 5 2-21 tablet by ity of mg tablet 00:00: mouth 2 (two) Medical times Branch daily. Indication s: blood clot in a deep vein of the extremitie s fluconazole 2020-10 Yes [id number] 100mg Take 1 [facility] 100 mg 2-21 tablet by ity of tablet 00:00: mouth [place] 00 daily. Medical Branch apixaban 2020-10 Yes 1473 5mg Take 1 [facility] (ELIQUIS) 5 2-21 tablet by ity of mg tablet 00:00: mouth 2 [place] 00 (two) Medical times Branch daily. Indication s: blood clot in a deep vein of the extremitie s apixaban 2020-10 Yes 1473 5mg Take 1 [facility] (ELIQUIS) 5 2-21 tablet by ity of mg tablet 00:00: mouth 2 [place] 00 (two) Medical times Branch daily. Indication s: blood clot in a deep vein of the extremitie s apixaban 2020-10 Yes 1473 5mg Take 1 [facility] (ELIQUIS) 5 2-21 tablet by ity of mg tablet 00:00: mouth 2 [place] 00 (two) Medical times Branch daily. Indication s: blood clot in a deep vein of the extremitie s apixaban 2020-10 Yes 1473 5mg Take 1 [facility] (ELIQUIS) 5 2-21 tablet by ity of mg tablet 00:00: mouth 2 [place] 00 (two) Medical times Branch daily. Indication s: blood clot in a deep vein of the extremitie s apixaban 2020-10 Yes [id number] 5mg Take 1 [facility] (ELIQUIS) 5 2-21 tablet by ity of mg tablet 00:00: mouth 2 [place] 00 (two) Medical times Branch daily. Indication s: blood clot in a deep vein of the extremitie s fluconazole 2020-10- No [id number] 100mg Take 1 [facility] 100 mg 2-21 08-21 tablet by ity of tablet 00:00: 00:00 mouth [place] 00 :00 daily. Medical Branch lisinopriL Yes [id number] Take one [facility] 20 mg 9-26 tablet by ity of tablet 00:00: mouth [place] 00 daily Medical Branch glimepiride Yes [id number] 4mg Take 1 [facility] 4 mg tablet 9-26 tablet by ity of 00:00: mouth 2 [place] 00 (two) Medical times Branch daily with meals. metformin Yes [id number] 1000mg Take 2 [facility] ER 500 mg 9-26 tablets by ity of 24 hr 00:00: mouth 2 [place] tablet 00 (two) Medical times Branch daily with meals. lisinopriL Yes [id number] Take one [facility] 20 mg 9-26 tablet by ity of tablet 00:00: mouth [place] 00 daily Medical Branch glimepiride Yes [id number] 4mg Take 1 [facility] 4 mg tablet 9-26 tablet by ity of 00:00: mouth 2 [place] 00 (two) Medical times Branch daily with meals. metformin Yes [id number] 1000mg Take 2 [facility] ER 500 mg 9-26 tablets by ity of 24 hr 00:00: mouth 2 [place] tablet 00 (two) Medical times Branch daily with meals. lisinopriL Yes [id number] Take one [facility] 20 mg 9-26 tablet by ity of tablet 00:00: mouth [place] 00 daily Medical Branch glimepiride Yes [id number] 4mg Take 1 [facility] 4 mg tablet 9-26 tablet by ity of 00:00: mouth 2 [place] 00 (two) Medical times Branch daily with meals. metformin 2020-0 Yes [id number] 1000mg Take 2 [facility] ER 500 mg 9-26 tablets by ity of 24 hr 00:00: mouth 2 [place] tablet 00 (two) Medical times Branch daily with meals. lisinopriL 2020-0 Yes [id number] Take one [facility] 20 mg 9-26 tablet by ity of tablet 00:00: mouth [place] 00 daily Medical Branch glimepiride 2020-0 Yes [id number] 4mg Take 1 [facility] 4 mg tablet 9-26 tablet by ity of 00:00: mouth 2 [place] 00 (two) Medical times Branch daily with meals. metformin 2020-0 Yes [id number] 1000mg Take 2 [facility] ER 500 mg 9-26 tablets by ity of 24 hr 00:00: mouth 2 [place] tablet 00 (two) Medical times Branch daily with meals. lisinopriL 2020-0 Yes [id number] Take one [facility] 20 mg 9-26 tablet by ity of tablet 00:00: mouth [place] 00 daily Medical Branch glimepiride 2020-0 Yes [id number] 4mg Take 1 [facility] 4 mg tablet 9-26 tablet by ity of 00:00: mouth 2 [place] 00 (two) Medical times Branch daily with meals. metformin 2020-0 Yes [id number] 1000mg Take 2 [facility] ER 500 mg 9-26 tablets by ity of 24 hr 00:00: mouth 2 [place] tablet 00 (two) Medical times Branch daily with meals. lisinopriL 2020-0 Yes [id number] Take one [facility] 20 mg 9-26 tablet by ity of tablet 00:00: mouth [place] 00 daily Medical Branch glimepiride 2020-0 Yes [id number] 4mg Take 1 [facility] 4 mg tablet 9-26 tablet by ity of 00:00: mouth 2 [place] 00 (two) Medical times Branch daily with meals. metformin 2020-0 Yes [id number] 1000mg Take 2 [facility] ER 500 mg 9-26 tablets by ity of 24 hr 00:00: mouth 2 [place] tablet 00 (two) Medical times Branch daily with meals. lisinopriL 2020-0 Yes [id number] Take one [facility] 20 mg 9-26 tablet by ity of tablet 00:00: mouth [place] 00 daily Medical Branch glimepiride 2020-0 Yes [id number] 4mg Take 1 [facility] 4 mg tablet 9-26 tablet by ity of 00:00: mouth 2 [place] 00 (two) Medical times Branch daily with meals. metformin 2020-0 Yes [id number] 1000mg Take 2 [facility] ER 500 mg 9-26 tablets by ity of 24 hr 00:00: mouth 2 [place] tablet 00 (two) Medical times Branch daily with meals. lisinopriL 0 Yes [id number] Take one [facility] 20 mg 9-26 tablet by ity of tablet 00:00: mouth [place] 00 daily Medical Branch glimepiride 2020-0 Yes [id number] 4mg Take 1 [facility] 4 mg tablet 9-26 tablet by ity of 00:00: mouth 2 [place] 00 (two) Medical times Branch daily with meals. metformin Yes [id number] 1000mg Take 2 [facility] ER 500 mg 9-26 tablets by ity of 24 hr 00:00: mouth 2 [place] tablet 00 (two) Medical times Branch daily with meals. lisinopriL Yes [id number] Take one [facility] 20 mg 9-26 tablet by ity of tablet 00:00: mouth [place] 00 daily Medical Branch glimepiride 2020-0 Yes [id number] 4mg Take 1 [facility] 4 mg tablet 9-26 tablet by ity of 00:00: mouth 2 [place] 00 (two) Medical times Branch daily with meals. metformin 0 Yes [id number] 1000mg Take 2 [facility] ER 500 mg 9-26 tablets by ity of 24 hr 00:00: mouth 2 [place] tablet 00 (two) Medical times Branch daily with meals. lisinopriL 2020-0 Yes [id number] Take one [facility] 20 mg 9-26 tablet by ity of tablet 00:00: mouth [place] 00 daily Medical Branch glimepiride 2020-0 Yes [id number] 4mg Take 1 [facility] 4 mg tablet 9-26 tablet by ity of 00:00: mouth 2 [place] 00 (two) Medical times Branch daily with meals. metformin 2020-0 Yes [id number] 1000mg Take 2 [facility] ER 500 mg 9-26 tablets by ity of 24 hr 00:00: mouth 2 [place] tablet 00 (two) Medical times Branch daily with meals. lisinopriL 2020-0 Yes [id number] Take one [facility] 20 mg 9-26 tablet by ity of tablet 00:00: mouth [place] 00 daily Medical Branch glimepiride 2020-0 Yes [id number] 4mg Take 1 [facility] 4 mg tablet 9-26 tablet by ity of 00:00: mouth 2 [place] 00 (two) Medical times Branch daily with meals. metformin 2020-0 Yes [id number] 1000mg Take 2 [facility] ER 500 mg 9-26 tablets by ity of 24 hr 00:00: mouth 2 [place] tablet 00 (two) Medical times Branch daily with meals. lisinopriL 2020-0 Yes [id number] Take one [facility] 20 mg 9-26 tablet by ity of tablet 00:00: mouth [place] 00 daily Medical Branch glimepiride 2020-0 Yes [id number] 4mg Take 1 [facility] 4 mg tablet 9-26 tablet by ity of 00:00: mouth 2 [place] 00 (two) Medical times Branch daily with meals. metformin 2020-0 Yes [id number] 1000mg Take 2 [facility] ER 500 mg 9-26 tablets by ity of 24 hr 00:00: mouth 2 [place] tablet 00 (two) Medical times Branch daily with meals. lisinopriL 2020-0 Yes [id number] Take one [facility] 20 mg 9-26 tablet by ity of tablet 00:00: mouth [place] 00 daily Medical Branch glimepiride 2020-0 Yes [id number] 4mg Take 1 [facility] 4 mg tablet 9-26 tablet by ity of 00:00: mouth 2 [place] 00 (two) Medical times Branch daily with meals. metformin 2020-0 Yes [id number] 1000mg Take 2 [facility] ER 500 mg 9-26 tablets by ity of 24 hr 00:00: mouth 2 [place] tablet 00 (two) Medical times Branch daily with meals. lisinopriL 2020-0 Yes [id number] Take one [facility] 20 mg 9-26 tablet by ity of tablet 00:00: mouth [place] 00 daily Medical Branch glimepiride 2020-0 Yes [id number] 4mg Take 1 [facility] 4 mg tablet 9-26 tablet by ity of 00:00: mouth 2 [place] 00 (two) Medical times Branch daily with meals. metformin 2020-0 Yes [id number] 1000mg Take 2 [facility] ER 500 mg 9-26 tablets by ity of 24 hr 00:00: mouth 2 [place] tablet 00 (two) Medical times Branch daily with meals. lisinopriL 2020-0 Yes [id number] Take one [facility] 20 mg 9-26 tablet by ity of tablet 00:00: mouth [place] 00 daily Medical Branch glimepiride 2020-0 Yes [id number] 4mg Take 1 [facility] 4 mg tablet 9-26 tablet by ity of 00:00: mouth 2 [place] 00 (two) Medical times Branch daily with meals. metformin 2020-0 Yes [id number] 1000mg Take 2 [facility] ER 500 mg 9-26 tablets by ity of 24 hr 00:00: mouth 2 [place] tablet 00 (two) Medical times Branch daily with meals. lisinopriL 2020-0 Yes [id number] Take one [facility] 20 mg 9-26 tablet by ity of tablet 00:00: mouth [place] 00 daily Medical Branch glimepiride 2020-0 Yes [id number] 4mg Take 1 [facility] 4 mg tablet 9-26 tablet by ity of 00:00: mouth 2 [place] 00 (two) Medical times Branch daily with meals. metformin 2020-0 Yes [id number] 1000mg Take 2 [facility] ER 500 mg 9-26 tablets by ity of 24 hr 00:00: mouth 2 [place] tablet 00 (two) Medical times Branch daily with meals. lisinopriL 2020-0 Yes [id number] Take one [facility] 20 mg 9-26 tablet by ity of tablet 00:00: mouth [place] 00 daily Medical Branch glimepiride 2020-0 Yes [id number] 4mg Take 1 [facility] 4 mg tablet 9-26 tablet by ity of 00:00: mouth 2 [place] 00 (two) Medical times Branch daily with meals. metformin 2020-0 Yes [id number] 1000mg Take 2 [facility] ER 500 mg 9-26 tablets by ity of 24 hr 00:00: mouth 2 [place] tablet 00 (two) Medical times Branch daily with meals. lisinopriL 2020-0 Yes [id number] Take one [facility] 20 mg 9-26 tablet by ity of tablet 00:00: mouth [place] 00 daily Medical Branch glimepiride 2020-0 Yes [id number] 4mg Take 1 [facility] 4 mg tablet 9-26 tablet by ity of 00:00: mouth 2 [place] 00 (two) Medical times Branch daily with meals. metformin 2020-0 Yes [id number] 1000mg Take 2 [facility] ER 500 mg 9-26 tablets by ity of 24 hr 00:00: mouth 2 [place] tablet 00 (two) Medical times Branch daily with meals. metFORMIN 3- No 1000mg Take 1,000 [facility] (GLUCOPHAGE 00:00: 00:00 mouth. [facility] -XR) 750 mg 00 :00 l 24 hr tablet lisinopriL 2020- 2023- No 5mg QD Take 1 [facility] (PRINIVIL) 06-26- tablet (5 st 5 mg tablet 00:00: 00:00 mg total) [facility] 00 :00 by mouth l daily. metFORMIN 2020-3- No 1000mg Take 1,000 [facility] 06-26 02-[address] (GLUCOPHAGE 00:00: 00:00 mouth. [facility] -XR) 750 mg 00 :00 l 24 hr tablet lisinopriL 2023- No 5mg QD Take 1 [facility] (PRINIVIL) 06-26- tablet (5 st 5 mg tablet 00:00: 00:00 mg total) [facility] 00 :00 by mouth l daily. atorvastati Yes [id number] 20mg Take 1 [facility] n 20 mg 5-24 tablet by ity of tablet 00:00: mouth at [place] [address] bedtime. Medical Branch atorvastati Yes [id number] 20mg Take 1 [facility] n 20 mg 5-24 tablet by ity of tablet 00:00: mouth at [place] [address] bedtime. Medical Branch atorvastati Yes [id number] 20mg Take 1 [facility] n 20 mg 5-24 tablet by ity of tablet 00:00: mouth at [place] [address] bedtime. Medical Branch atorvastati Yes [id number] 20mg Take 1 [facility] n 20 mg 5-24 tablet by ity of tablet 00:00: mouth at [place] [address] bedtime. Medical Branch atorvastati Yes [id number] 20mg Take 1 [facility] n 20 mg 5-24 tablet by ity of tablet 00:00: mouth at [place] [address] bedtime. Medical Branch atorvastati Yes [id number] 20mg Take 1 [facility] n 20 mg 5-24 tablet by ity of tablet 00:00: mouth at [place] [address] bedtime. Medical Branch atorvastati 2021-0 Yes [id number] 20mg Take 1 [facility] n 20 mg 5-24 tablet by ity of tablet 00:00: mouth at [place] [address] bedtime. Medical Branch atorvastati 0 Yes [id number] 20mg Take 1 [facility] n 20 mg 5-24 tablet by ity of tablet 00:00: mouth at [place] bedtime. Medical Branch atorvastati 0 Yes [id number] 20mg Take 1 [facility] n 20 mg 5-24 tablet by ity of tablet 00:00: mouth at [place] [address] bedtime. Medical Branch atorvastati 0 Yes [id number] 20mg Take 1 [facility] n 20 mg 5-24 tablet by [facility]y of tablet 00:00: mouth at [place] [address] bedtime. Medical Branch atorvastati Yes [id number] 20mg Take 1 [facility] n 20 mg 5-24 tablet by ity of tablet 00:00: mouth at [place] [address] bedtime. Medical Branch atorvastati Yes [id number] 20mg Take 1 [facility] n 20 mg 5-24 tablet by [facility]y of tablet 00:00: mouth at [place] [address] bedtime. Medical Branch atorvastati Yes [id number] 20mg Take 1 [facility] n 20 mg 5-24 tablet by [facility]y of tablet 00:00: mouth at [place] [address] bedtime. Medical Branch atorvastati Yes [id number] 20mg Take 1 [facility] n 20 mg 5-24 tablet by [facility]y of tablet 00:00: mouth at [place] [address] bedtime. Medical Branch atorvastati 0 Yes [id number] 20mg Take 1 [facility] n 20 mg 5-24 tablet by [facility]y of tablet 00:00: mouth at [place] [address] bedtime. Medical Branch atorvastati 0 Yes [id number] 20mg Take 1 [facility] n 20 mg 5-24 tablet by [facility]y of tablet 00:00: mouth at [place] [address] bedtime. Medical Branch atorvastati 0 Yes [id number] 20mg Take 1 [facility] n 20 mg 5-24 tablet by ity of tablet 00:00: mouth at [place] [address] bedtime. Medical Branch atorvastati Yes [id number] 20mg Take 1 [facility] n 20 mg 5-24 tablet by [facility]y of tablet 00:00: mouth at [place] [address] bedtime. Medical Branch traMADoL 2021-0 Yes 50mg Q8H Take 1 [facility] (ULTRAM) 50 5-05 tablet (50 st mg tablet 00:00: mg total) [facility] 00 by mouth l every 8 (eight) hours as needed. traMADoL 50 Yes TAKE 1 [facility] ers [...] 8 Medical HOURS Branch NEEDED traMADoL 50 0 Yes TAKE 1 [facility] ers mg tablet 5-05 TABLET BY ity o f 00:00: MOUTH [place] 00 EVERY 8 Medical HOURS Branch NEEDED traMADoL 50 0 Yes TAKE 1 [facility] ers mg tablet 5-05 TABLET BY ity o f 00:00: MOUTH [place] 00 EVERY 8 Medical HOURS Branch NEEDED traMADoL 50 0 Yes TAKE 1 [facility] ers mg tablet 5-05 TABLET BY ity o f 00:00: MOUTH [place] 00 EVERY 8 Medical HOURS Branch NEEDED traMADoL 50 0 Yes TAKE 1 [facility] ers mg tablet 5-05 TABLET BY ity o f 00:00: MOUTH [place] 00 EVERY 8 Medical HOURS Branch NEEDED traMADoL 50 0 Yes TAKE 1 [facility] ers mg tablet 5-05 TABLET BY ity o f 00:00: MOUTH [place] 00 EVERY 8 Medical HOURS Branch NEEDED traMADoL 50 0 Yes TAKE 1 [facility] ers mg tablet 5-05 TABLET BY ity o f 00:00: MOUTH [place] 00 EVERY 8 Medical HOURS Branch NEEDED traMADoL 50 0 Yes TAKE 1 [facility] ers mg tablet 5-05 TABLET BY ity o f 00:00: MOUTH [place] 00 EVERY 8 Medical HOURS Branch NEEDED traMADoL 50 2021-0 Yes TAKE 1 [facility] ers mg tablet 5-05 TABLET BY ity o f 00:00: MOUTH [place] 00 EVERY 8 Medical HOURS Branch NEEDED traMADoL 50 2020-0 Yes TAKE 1 [facility] ers mg tablet 5-05 TABLET BY ity o f 00:00: MOUTH [place] 00 EVERY 8 Medical HOURS Branch NEEDED traMADoL 50 2020-0 Yes TAKE 1 [facility] ers mg tablet 5-05 TABLET BY ity o f 00:00: MOUTH 00 EVERY 8 Medical HOURS Branch NEEDED traMADoL 50 2020-0 Yes TAKE 1 [facility] ers mg tablet 5-05 TABLET BY ity o f 00:00: MOUTH [place] 00 EVERY 8 Medical HOURS Branch NEEDED traMADoL 50 2020-0 Yes TAKE 1 [facility] ers mg tablet 5-05 TABLET BY ity o f 00:00: MOUTH [place] 00 EVERY 8 Medical HOURS Branch NEEDED traMADoL 50 2020-0 Yes TAKE 1 [facility] ers mg tablet 5-05 TABLET BY ity o f 00:00: MOUTH [place] 00 EVERY 8 Medical HOURS Branch NEEDED traMADoL 0 2023- No 1{tbl} Q8H Take 1 [facility] (ULTRAM) 50 5-05 07-07 tablet (50 s t mg tablet 00:00: 00:00 mg total) [facility] 00 :00 by mouth l every 8 (eight) hours as needed. gabapentin 2020-0 Yes 1-2 tabs, [facility] 300 mg 2-10 po bid ity of capsule 00:00: Medical Branch gabapentin 2020-0 Yes 1-2 tabs, [facility] 300 mg 2-10 po bid ity of capsule 00:00: Medical Branch gabapentin 2021-0 Yes 1-2 tabs, [facility] 300 mg 2-10 po bid ity of capsule 00:00: Medical Branch gabapentin 202-0 Yes 1-2 tabs, [facility] 300 mg 2-10 po bid ity of capsule 00:00: Medical Branch gabapentin 2021-0 Yes 1-2 tabs, [facility] 300 mg 2-10 po bid ity of capsule 00:00: Medical Branch gabapentin 2021-0 Yes 1-2 tabs, [facility] 300 mg 2-10 po bid ity of capsule 00:00: Medical Branch gabapentin 2021-0 Yes 1-2 tabs, Un [facility] 300 mg 2-10 po bid ity of capsule 00:00: [place] [facility] gabapentin 2021-0 Yes 1-2 tabs, Un [facility] 300 mg 2-10 po bid ity of capsule 00:00: [place] [address] Medical Branch gabapentin 2021-0 Yes 1-2 tabs, Un [facility] 300 mg 2-10 po bid ity of capsule 00:00: [place] [address] Medical Branch gabapentin 2021-0 Yes 1-2 tabs, [facility] 300 mg 2-10 po bid ity of capsule 00:00: [place] [address] Medical Branch gabapentin 2021-0 Yes 1-2 tabs, Un oskar 300 mg 2-10 po bid ity of capsule 00:00: [place] [id number] [facility] gabapentin 2021-0 Yes 1-2 tabs, Un oskar 300 mg 2-10 po bid ity of capsule 00:00: [place] [address] [facility] gabapentin 2021-0 Yes 1-2 tabs, Un oskar 300 mg 2-10 po bid ity of capsule 00:00: [place] [address] [facility] gabapentin 2021-0 Yes 1-2 tabs, Un oskar 300 mg 2-10 po bid ity of capsule 00:00: [place] [address] [facility] gabapentin 2021-0 Yes 1-2 tabs, Un oskar 300 mg 2-10 po bid ity of capsule 00:00: [place] [address] [facility] gabapentin 2021-0 Yes 1-2 tabs, Un oskar 300 mg 2-10 po bid ity of capsule 00:00: [place] [address] [facility] gabapentin 2021-0 Yes 1-2 tabs, Un oskar 300 mg 2-10 po bid ity of capsule 00:00: [place] [address] [facility] gabapentin 2021-0 Yes 1-2 tabs, Un oskar 300 mg 2-10 po bid ity of capsule 00:00: [place] [address] [facility] acetaminoph 2020-0 Yes 1 tab bid M ethodi en-codeine 6-21 prn, po st (TYLENOL 00:00: [facility]osp[facility] WITH 00 l CODEINE #3) 300-30 mg per tablet acetaminoph 2020-0 Yes TK 1 OR 2 [...] 00:00: H PRN P [place] tablet 00 [facility] acetaminoph Yes TK 1 OR 2 U nivers en-codeine 6-21 TS PO Q 6 ity of 300-30 mg 00:00: H PRN P [place] tablet 00 [facility] acetaminoph 2022- No TK 1 OR 2 Univers en-codeine 6- 10-15 TS PO Q 6 ity of 300-30 mg 00:00: [place]00 [facility] acetaminoph 2022- No 1 tab bid Methodi en-codeine 03-21 07-09 prn, po st (TYLENOL 00:00: 00:00 Hospita WITH 00 :00 l CODEINE #3) 300-30 mg per tablet atorvastati 2022- No 20mg Take 1 Met hodi n (LIPITOR) 10-29 tablet (20 s t 20 mg 00:00: 00:00 mg total) Hospit a tablet 00 :00 by mouth. l atorvastati 2022- No 20mg Take 1 Met hodi n (LIPITOR) 10-29 tablet (20 s t 20 mg 00:00: 00:00 mg total) Hospit a tablet 00 :00 by mouth. l lisinopril lisinopril No lisinopril Mariah 5 mg tablet 5 mg tablet 5 mg O rthope TAKE 1 TAKE 1 tablet dic TABLET BY TABLET BY TAKE 1 Spo rts MOUTH ONCE MOUTH ONCE TABLET BY Medicin DAILY DAILY MOUTH ONCE e DAILY metformin metformin No metformin Mariah ER 750 mg ER 750 mg ER 750 mg Orthope tablet,exte tablet,exte tablet,ext dic nded nded ended Sports release 24 release 24 release 24 Medicin hr TAKE 1 hr TAKE 1 hr TAKE 1 e TABLET BY TABLET BY TABLET BY MOUTH TWICE MOUTH TWICE MOUTH DAILY DAILY TWICE DAILY metronidazo metronidazo No metronidaz Mariah le 500 mg le 500 mg ole 500 mg [facility]ope tablet TAKE tablet TAKE tablet dic 4 TABLETS 4 TABLETS TAKE 4 Spo rts BY MOUTH BY MOUTH TABLETS BY Medicin A ONE TIME A ONE TIME MOUTH A e DOSE DOSE ONE TIME DOSE minocycline minocycline No minocyclin Mariah 100 mg 100 mg e 100 mg [facility] capsule capsule capsule dic TAKE 1 TAKE 1 TAKE 1 Sports CAPSULE BY CAPSULE BY CAPSULE BY Medicin MOUTH TWICE MOUTH TWICE MOUTH e DAILY DAILY TWICE DAILY nitrofurant nitrofurant No nitrofuran Mariah oin oin toin Orthope monohydrate monohydrate monohydrat dic /macrocryst /macrocryst e/macrocry Sports als 100 mg als 100 mg stals 100 Medicin capsule capsule mg capsule e TAKE 1 TAKE 1 TAKE 1 CAPSULE BY CAPSULE BY CAPSULE BY MOUTH IN MOUTH IN MOUTH IN THE MORNING THE MORNING THE AND 1 IN AND 1 IN MORNING THE EVENING THE EVENING AND 1 IN FOR 7 DAYS FOR 7 DAYS THE EVENING FOR 7 DAYS penicillin penicillin No penicillin Mariah V potassium V potassium V O rthope 500 mg 500 mg potassium dic tablet tablet 500 mg Sports tablet Medicin e acetaminoph acetaminoph No acetaminop Mariah en 300 en 300 hen 300 Orthope mg-codeine mg-codeine mg-codeine dic 30 mg 30 mg 30 mg Sports tablet tablet tablet Medicin e amoxicillin amoxicillin No amoxicilli Mariah [id number] [id number] Orthope mg-potassiu mg-potassiu mg-potassi dic m m um Sports clavulanate clavulanate clavulanat Medicin 125 mg 125 mg e 125 mg e tablet TAKE tablet TAKE tablet 1 TABLET BY 1 TABLET BY TAKE 1 MOUTH TWICE MOUTH TWICE TABLET BY A DAY A DAY MOUTH TWICE A DAY atorvastati atorvastati No atorvastat Mariah n 10 mg n 10 mg in 10 mg Ortho pe tablet TAKE tablet TAKE tablet dic 1 TABLET BY 1 TABLET BY TAKE 1 Sports MOUTH ONCE MOUTH ONCE TABLET BY Medicin DAILY DAILY MOUTH ONCE e DAILY atorvastati atorvastati No atorvastat Mariah n 20 mg n 20 mg in 20 mg Ortho pe tablet TAKE tablet TAKE tablet dic 1 TABLET BY 1 TABLET BY TAKE 1 Sports MOUTH ONCE MOUTH ONCE TABLET BY Medicin DAILY DAILY MOUTH ONCE e DAILY benzonatate benzonatate No benzonatat Mariah 100 mg 100 mg e 100 mg [facility] capsule capsule capsule dic TAKE 2 TAKE 2 TAKE 2 Sports CAPSULES BY CAPSULES BY CAPSULES Medicin MOUTH 3 MOUTH 3 BY MOUTH 3 e TIMES A DAY TIMES A DAY TIMES A NEEDED NEEDED DAY COUGH COUGH NEEDED COUGH celecoxib celecoxib No celecoxib Mariah 100 mg 100 mg 100 mg [facility] capsule capsule capsule dic TAKE 1 TAKE 1 TAKE 1 Sports CAPSULE BY CAPSULE BY CAPSULE BY Medicin MOUTH TWICE MOUTH TWICE MOUTH e A DAY A DAY TWICE A DAY docusate docusate No docusate Aza maddison sodium 100 sodium 100 sodium 100 [facility] mg capsule mg capsule mg capsule dic TAKE 1 TAKE 1 TAKE 1 Sports CAPSULE BY CAPSULE BY CAPSULE BY Medicin MOUTH TWICE MOUTH TWICE MOUTH e DAILY DAILY TWICE NEEDED FOR NEEDED FOR DAILY CONSTIPATIO CONSTIPATIO NEEDED FOR N N CONSTIPATI ON Eliquis 5 Eliquis 5 No Eliquis 5 Mariah mg tablet mg tablet mg tablet [facility]ope TAKE 1 TAKE 1 TAKE 1 dic TABLET BY TABLET BY TABLET BY Sports MOUTH TWICE MOUTH TWICE MOUTH Medicin DAILY DAILY TWICE e DAILY enoxaparin enoxaparin No enoxaparin Mariah 120 mg/0.8 120 mg/0.8 120 mg/0.8 Orthope mL mL mL dic subcutaneou subcutaneou subcutaneo Sports s syringe s syringe us syringe Medicin e ergocalcife ergocalcife No ergocalcif Mariah rol rol jody [facility] (vitamin (vitamin (vitamin dic D2) 1,250 D2) 1,250 D2) 1,250 Sports mcg (50,000 mcg (50,000 mcg M edicin unit) unit) (50,000 e capsule capsule unit) TAKE 1 TAKE 1 capsule CAPSULE BY CAPSULE BY TAKE 1 MOUTH ONCE MOUTH ONCE CAPSULE BY A WEEK WITH A WEEK WITH MOUTH ONCE FOOD FOOD A WEEK WITH FOOD famotidine famotidine No famotidine Mariah 20 mg 20 mg 20 mg [facility] tablet TAKE tablet TAKE tablet dic 1 TABLET BY 1 TABLET BY TAKE 1 Sports MOUTH TWICE MOUTH TWICE TABLET BY Medicin A DAY A DAY MOUTH e TWICE A DAY fluconazole fluconazole No fluconazol Mariah 100 mg 100 mg e 100 mg [facility] tablet TAKE tablet TAKE tablet dic 1 TABLET BY 1 TABLET BY TAKE 1 Sports MOUTH ONCE MOUTH ONCE TABLET BY Medicin DAILY DAILY MOUTH ONCE e DAILY gabapentin gabapentin No gabapentin Mariah 300 mg 300 mg 300 mg [facility] capsule capsule capsule dic TAKE 1 TAKE 1 TAKE 1 Sports CAPSULE BY CAPSULE BY CAPSULE BY Medicin MOUTH TWICE MOUTH TWICE MOUTH e DAILY DAILY TWICE DAILY Gentle Gentle No Gentle Mariah Laxative Laxative Laxative Ort hope (bisacodyl) (bisacodyl) (bisacodyl dic 5 mg 5 mg ) 5 mg Sports tablet,monika tablet,monika tablet,del Medicin yed release yed release ayed e TAKE 2 TAKE 2 release TABLETS BY TABLETS BY TAKE 2 MOUTH EVERY MOUTH EVERY TABLETS BY DAY DAY MOUTH NEEDED FOR NEEDED FOR EVERY DAY CONSTIPATIO CONSTIPATIO NEEDED N N FOR CONSTIPATI ON glimepiride glimepiride No glimepirid Mariah 4 mg tablet 4 mg tablet e 4 mg Orthope TAKE 1 TAKE 1 tablet dic TABLET BY TABLET BY TAKE 1 Spo rts MOUTH TWICE MOUTH TWICE TABLET BY Medicin DAILY WITH DAILY WITH MOUTH e MEALS MEALS TWICE DAILY WITH MEALS lidocaine 5 lidocaine 5 No lidocaine Mariah % topical % topical 5 % Ortho pe patch patch topical dic patch Sports Medicin e lisinopril lisinopril No lisinopril Mariah 20 mg 20 mg 20 mg [facility] tablet TAKE tablet TAKE tablet dic 1 TABLET BY 1 TABLET BY TAKE 1 Sports MOUTH ONCE MOUTH ONCE TABLET BY Medicin DAILY DAILY MOUTH ONCE e DAILY Immunizations Ordered Filled Date Status Comments Source Immunization Name Immunization Name PFIZER COVID-19 2021-07-15 Completed [facility] MRNA VACCINATION 00:00:00 [facility] SARS-COV-2 COVID-19 2021-07-15 Completed Unive rsity of PFIZER VACCINE 00:00:00 [facility] SARS-COV-2 COVID-19 2021-07-15 Completed Unive rsity of PFIZER VACCINE 00:00:00 [facility] SARS-COV-2 COVID-19 2021-07-15 Completed Unive rsity of PFIZER VACCINE 00:00:00 [facility] SARS-COV-2 COVID-19 2021-07-15 Completed Unive rsity of PFIZER VACCINE 00:00:00 [facility] SARS-COV-2 COVID-19 2021-07-15 Completed Unive rsity of PFIZER VACCINE 00:00:00 [facility] SARS-COV-2 COVID-19 2021-07-15 Completed Unive rsity of PFIZER VACCINE 00:00:00 [facility] SARS-COV-2 COVID-19 2021-07-15 Completed Unive rsity of PFIZER VACCINE 00:00:00 [facility] SARS-COV-2 COVID-19 2021-07-15 Completed Unive rsity of PFIZER VACCINE 00:00:00 [facility] SARS-COV-2 COVID-19 2021-07-15 Completed Unive rsity of PFIZER VACCINE 00:00:00 [facility] SARS-COV-2 COVID-19 2021-07-15 Completed Unive rsity of PFIZER VACCINE 00:00:00 [facility] SARS-COV-2 COVID-19 2021-07-15 Completed Unive rsity of PFIZER VACCINE 00:00:00 [facility] SARS-COV-2 COVID-19 2021-07-15 Completed Unive rsity of PFIZER VACCINE 00:00:00 [facility] SARS-COV-2 COVID-19 2021-07-15 Completed Unive rsity of PFIZER VACCINE 00:00:00 [facility] SARS-COV-2 COVID-19 2021-07-15 Completed Unive rsity of PFIZER VACCINE 00:00:00 [facility] PFIZER COVID-19 2021-06-24 Completed [facility] MRNA VACCINATION 00:00:00 [facility] SARS-COV-2 COVID-19 2021-06-24 Completed Unive rsity of PFIZER VACCINE 00:00:00 [facility] SARS-COV-2 COVID-19 2021-06-24 Completed Unive rsity of PFIZER VACCINE 00:00:00 [facility] SARS-COV-2 COVID-19 2021-06-24 Completed Unive rsity of PFIZER VACCINE 00:00:00 [facility] SARS-COV-2 COVID-19 2021-06-24 Completed Unive rsity of PFIZER VACCINE 00:00:00 [facility] SARS-COV-2 COVID-19 2021-06-24 Completed Unive rsity of PFIZER VACCINE 00:00:00 [facility] SARS-COV-2 COVID-19 2021-06-24 Completed Unive rsity of PFIZER VACCINE 00:00:00 [facility] SARS-COV-2 COVID-19 2021-06-24 Completed Unive rsity of PFIZER VACCINE 00:00:00 [facility] SARS-COV-2 COVID-19 2021-06-24 Completed Unive rsity of PFIZER VACCINE 00:00:00 [facility] SARS-COV-2 COVID-19 2021-06-24 Completed Unive rsity of PFIZER VACCINE 00:00:00 [facility] SARS-COV-2 COVID-19 2021-06-24 Completed Unive rsity of PFIZER VACCINE 00:00:00 [facility] SARS-COV-2 COVID-19 2021-06-24 Completed Unive rsity of PFIZER VACCINE 00:00:00 [facility] SARS-COV-2 COVID-19 2021-06-24 Completed Unive rsity of PFIZER VACCINE 00:00:00 [facility] SARS-COV-2 COVID-19 2021-06-24 Completed Unive rsity of PFIZER VACCINE 00:00:00 [facility] SARS-COV-2 COVID-19 2021-06-24 Completed Unive rsity of PFIZER VACCINE 00:00:00 [facility] PFIZER COVID-19 Unknown Completed [facility] PFIZER COVID-19 Unknown Completed [facility] MODERNA COVID-19 Unknown Completed [facility] Influenza, Unknown Completed [facility] Zoster Unknown Completed [facility] Pneumococcal Unknown Completed [facility] 20-valent Conjugate Hospi caleb Vaccine Zoster Vaccine Unknown Completed [facility] SARS-COV-2 COVID-19 Unknown Completed Unive rsity of PFIZER VACCINE [facility] SARS-COV-2 COVID-19 Unknown Completed Unive rsity of PFIZER VACCINE [facility] SARS-COV-2 COVID-19 Unknown Completed Unive rsity of PFIZER VACCINE [facility] SARS-COV-2 COVID-19 Unknown Completed Unive rsity of PFIZER VACCINE [facility] SARS-COV-2 COVID-19 Unknown Completed Unive rsity of PFIZER VACCINE [facility] SARS-COV-2 COVID-19 Unknown Completed Unive rsity of PFIZER VACCINE [facility] SARS-COV-2 COVID-19 Unknown Completed Unive rsity of PFIZER VACCINE [facility] SARS-COV-2 COVID-19 Unknown Completed Unive rsity of PFIZER VACCINE [facility] Vital Signs Vital Name Observation Time Observation Value Comments Source Systolic blood 2023-07-15 21:13:00 135 mm[Hg] Univer sity of pressure [facility] Diastolic blood 2023-07-15 21:13:00 83 mm[Hg] Unive rsity of pressure [facility] Heart rate 2023-07-15 21:13:00 84 /min [facility] [place] [facility] Body temperature 2023-07-15 21:13:00 36.72 Snow [facility] [place] [facility] Respiratory rate 2023-07-15 21:13:00 15 /min [facility] [place] [facility] Oxygen saturation in 2023-07-15 21:13:00 92 /min [facility] Arterial blood by [facility] bib Pulse oximetry Branch Body height 2023-07-15 12:39:00 160 cm [facility] [place] [facility] Body weight 2023-07-15 12:39:00 137.44 kg [facility] [place] [facility] BMI 2023-07-15 12:39:00 53.67 kg/m2 [facility] [place] [facility] Systolic blood 2023-05-21 22:20:00 146 mm[Hg] [facility]ity [facility] pressure [place] [facility] Diastolic blood 2023-05-21 22:20:00 75 mm[Hg] Unive rsity of pressure [place] [facility] Heart rate 2023-05-21 22:19:00 105 /min [facility] [place] [facility] Body temperature 2023-05-21 22:19:00 37.06 Snow [facility] [place] [facility] Respiratory rate 2023-05-21 22:19:00 16 /min [facility] [place] [facility] Body weight 2023-05-21 22:19:00 135.626 kg [facility] [place] [facility] BMI 2023-05-21 22:19:00 52.97 kg/m2 [facility] [place] [facility] Oxygen saturation in 2023-05-21 22:19:00 95 /min [facility] Arterial blood by [facility] Pulse oximetry Branch Systolic blood 2022-10-03 21:58:00 181 mm[Hg] Univer [facility]ity [facility] pressure [place] [facility] Diastolic blood 2022-10-03 21:58:00 76 mm[Hg] Unive rsity of pressure [place] [facility] Heart rate 2022-10-03 21:55:00 103 /min [facility] [place] [facility] Body temperature 2022-10-03 21:55:00 37.06 Snow [facility] [place] [facility] Respiratory rate 2022-10-03 21:55:00 16 /min [facility] [place] [facility] Body weight 2022-10-03 21:55:00 136.079 kg [facility] [place] [facility] BMI 2022-10-03 21:55:00 53.14 kg/m2 [facility] Oxygen saturation in 2022-10-03 21:55:00 96 /min University Arterial blood by [facility] Pulse oximetry Branch Systolic blood 2023-06-07 17:14:00 148 mm[Hg] [facility] Hospital pressure Diastolic blood 2023-06-07 17:14:00 84 mm[Hg] [facility] pressure Heart rate 2023-06-07 16:12:00 95 /min [facility] Body temperature 2023-06-07 16:12:00 37.22 Snow [facility] Body height 2023-06-07 16:12:00 160 cm [facility] Body weight 2023-06-07 16:12:00 136.079 kg [facility] BMI 2023-06-07 16:12:00 53.14 kg/m2 [facility] Oxygen saturation in 2023-06-07 16:12:00 96 /min [facility] Arterial blood by Pulse oximetry Systolic blood 2022-11-06 20:15:00 152 mm[Hg] Method [facility] pressure Diastolic blood 2022-11-06 20:15:00 88 mm[Hg] [facility] Hospital pressure Heart rate 2022-11-06 20:15:00 88 /min [facility] Body temperature 2022-11-06 20:15:00 37.06 Snow [facility] Respiratory rate 2022-11-06 20:15:00 16 /min [facility] Body height 2022-11-06 20:15:00 160 cm [facility] Body weight 2022-11-06 20:15:00 136.896 kg [facility] BMI 2022-11-06 20:15:00 53.46 kg/m2 [facility] Oxygen saturation in 2022-11-06 20:15:00 97 /min [facility] Arterial blood by Pulse oximetry Procedures Procedure Date / Time Performing Source Performed Clinician TROPONIN I 2023-07-15 22:15:00 Donal Dent [facility] POCT GLUCOSE (AUTOMATED) 2023-07-15 21:12:00 Donal Dent [facility] POCT GLUCOSE (AUTOMATED) 2023-07-15 16:13:00 Donal Dent [facility] PHOSPHORUS 2023-07-15 15:06:00 Donal Dent [facility] TROPONIN I 2023-07-15 15:06:00 Donal Dent [facility] LIPID PANEL ([id number])(TOTAL 2023-07-15 15:06:00 Donal Dent [facility] CHOLESTEROL, TRIGLYCERIDES, [facility] Branch HDL) TRANSTHORACIC ECHO (TTE) 2023-07-15 13:31:00 Donal Dent [facility] W/ CONTRAST Medical [facility] POCT GLUCOSE (AUTOMATED) 2023-07-15 12:58:00 Donal Dent [facility] URINALYSIS 2023-07-15 10:14:00 Singer [facility] CT CHEST PULMONARY ANGIOGRAM 2023-07-15 09:42:55 Singer [facility] LIPASE 2023-07-15 08:43:00 Singer [facility] MAGNESIUM 2023-07-15 08:43:00 Singer [facility] TROPONIN I 2023-07-15 08:43:00 Singer [facility] COMP. METABOLIC PANEL 2023-07-15 08:43:00 [id number] CBC WITH DIFF 2023-07-15 08:43:00 Singer [facility] GLYCOSYLATED HEMOGLOBIN 2023-07-15 08:43:00 Javier Carroll [facility] (A1C) [facility] N-TERMINAL PRO-BNP 2023-07-15 08:43:00 Singer [facility] HB ECG ROUTINE & RHYTHM 2023-07-15 08:21:20 Jon Howard [facility] COMPREHENSIVE METABOLIC 2023-06-07 17:36:00 Romero [facility] PANEL LIPASE LEVEL 2023-06-07 17:36:00 [facility] ANTINUCLEAR ANTIBODIES (VANESSA) 2023-06-07 17:36:00 [facility] WITH REFLEX TO TITER AND PATTERN, IMMUNOFLUORESCENCE RHEUMATOID FACTOR 2023-06-07 17:36:00 [facility] CYCLIC CITRULLINATED PEPTIDE 2023-06-07 17:36:00 [facility] AB, IGG C-REACTIVE PROTEIN 2023-06-07 17:36:00 [facility] SEDIMENTATION RATE 2023-06-07 17:36:00 [facility] SS-A ANTIBODY 2023-06-07 17:36:00 [facility] ESTIMATED GFR 2023-06-07 17:36:00 [facility] POC GLYCOSYLATED HEMOGLOBIN 2023-06-07 16:31:50 [facility] (HGB A1C) POCT URINALYSIS 2023-05-21 22:33:00 Yumiko Allen [facility] POCT MOLECULAR STREP 2023-05-21 22:16:00 Unknown, Attending [facility] POCT SARS-COV-2 ANTIGEN 2023-05-21 22:06:00 Yumiko Allen [facility] (BINAX NOW) [facility] PATIENT FINANCIAL 2023-05-21 22:05:16 Doctor Unassigned, Un [facility] POLICY [place] [facility] CBC WITH PLATELET AND 2023-04-06 16:05:00 [facility] DIFFERENTIAL COMPREHENSIVE METABOLIC 2023-04-06 16:05:00 [facility] PANEL LIPID PANEL 2023-04-06 16:05:00 [facility] ALBUMIN WITH CREATININE AND 2023-04-06 16:05:00 [facility] RATIO, RANDOM URINE TSH WITH REFLEX TO FREE T4 2023-04-06 16:05:00 [facility] URINALYSIS SCREEN AND 2023-04-06 16:05:00 [facility] MICROSCOPY, WITH REFLEX TO CULTURE HEMOGLOBIN A1C 2023-04-06 16:05:00 [facility] ESTIMATED GFR 2023-04-06 16:05:00 [facility] POC GLYCOSYLATED HEMOGLOBIN 2023-04-06 15:21:00 [facility] (HGB A1C) ECG 12-LEAD 2023-04-06 14:29:38 [facility] XR, hip + pelvis, 2023-01-24 00:00:00 Mariah Ort hopedic unilateral, 2 or 3 view Sports M edicine CBC WITH PLATELET AND 2022-11-06 21:26:00 [facility] DIFFERENTIAL COMPREHENSIVE METABOLIC 2022-11-06 21:26:00 [facility] PANEL LIPID PANEL 2022-11-06 21:26:00 [facility] THYROID STIMULATING HORMONE 2022-11-06 21:26:00 [facility] HEMOGLOBIN A1C 2022-11-06 21:26:00 [facility] URINALYSIS SCREEN AND 2022-11-06 21:26:00 [facility] MICROSCOPY, WITH REFLEX TO CULTURE VITAMIN D 25 HYDROXY LEVEL 2022-11-06 21:26:00 [facility] HEPATITIS C ANTIBODY 2022-11-06 21:26:00 [facility] ESTIMATED GFR 2022-11-06 21:26:00 [facility] POCT URINALYSIS 2022-10-03 21:59:00 Yumiko [facility] ASSIGNMENT OF BENEFITS 2022-10-03 21:42:05 Doctor Unassigned, [facility] EXTERNAL PROVIDER RECORDS 2021-11-21 06:01:00 Doctor Nancy, [facility] Total Replacement of Right 2021-11-10 00:00:00 Claudio sanchez Orthopedic Hip Joint Sports Medicine MEDICATION CORRESPONDENCE 2021-10-21 06:01:00 Doctor Nancy, [facility] Plan of Care Planned Activity Planned Date Details Comments Source Future Scheduled 2023-08-02 Screening for [facility] Test 14:30:06 malignant neoplasm [facility] of colon (procedure) [code = 483711680] Future Scheduled 2023-08-02 Screening for [facility] Test 14:30:06 malignant neoplasm [facility] of colon (procedure) [code = 923846808] Future Scheduled 2023-08-02 Screening for [facility] Test 14:30:06 malignant neoplasm [facility] of colon (procedure) [code = 963016913] Future Scheduled 2023-08-02 DIABETES: RETINAL Method ist Test 14:30:06 EYE EXAM [code = Hospital DIABETES: RETINAL EYE EXAM] Future Scheduled 2023-08-02 Screening for [facility] Test 14:30:06 malignant neoplasm [facility] of cervix (procedure) [code = 267463128] Future Scheduled 2023-08-02 BREAST CANCER [facility] Test 14:30:06 SCREENING [code = Hospital BREAST CANCER SCREENING] Future Scheduled 2023-08-02 Screening for [facility] Test 14:30:06 malignant neoplasm [facility] of colon (procedure) [code = 150491122] Future Scheduled 2023-08-02 Screening for [facility] Test 14:30:06 malignant neoplasm [facility] of colon (procedure) [code = [id number]] Future Scheduled 2023-08-02 SHINGLES VACCINES [facility] Test 14:30:06 (3 of 3) [code = Hospital SHINGLES VACCINES (3 of 3)] Future Scheduled 2023-08-02 COVID-19 VACCINE (4 Meth odist Test 14:30:06 - season) Hospital [code = COVID-19 VACCINE (4 - season)] Future Scheduled 2023-08-02 INFLUENZA VACCINE [facility] Test 14:30:06 (#1) [code = Hospital INFLUENZA VACCINE (#1)] Future Scheduled 2023-08-02 DIABETIC FOOT EXAM Metho dist Test 14:30:06 [code = DIABETIC Hospital FOOT EXAM] Future Scheduled 2023-08-02 URINE MICROALBUMIN [facility] Test 14:30:06 [code = URINE Hospital MICROALBUMIN] Future Scheduled 2023-01-12 DIABETES: RETINAL [facility] Test 16:28:07 EYE EXAM [code = Hospital DIABETES: RETINAL EYE EXAM] Future Scheduled 2023-01-12 URINE MICROALBUMIN [facility] dist Test 16:28:07 [code = URINE Hospital MICROALBUMIN] Future Scheduled 2023-01-12 Screening for [facility] Test 16:28:07 malignant neoplasm [facility] of cervix (procedure) [code = [id number]] Future Scheduled 2023-01-12 BREAST CANCER [facility] 16:28:07 SCREENING [code = Hospital BREAST CANCER SCREENING] Future Scheduled 2023-01-12 COLONOSCOPY [facility] 16:28:07 SCREENING [code = Hospital COLONOSCOPY SCREENING] Future Scheduled 2023-01-12 COVID-19 VACCINE (3 Meth odist Test 16:28:07 - Booster for Hospital Pfizer series) [code = COVID-19 VACCINE (3 - Booster for Pfizer series)] Future Scheduled 2023-01-12 SHINGLES VACCINES Method ist Test 16:28:07 (1 of 2) [code = Hospital SHINGLES VACCINES (1 of 2)] Future Scheduled 2023-01-12 INFLUENZA VACCINE Method [facility] Test 16:28:07 [code = INFLUENZA Hospital VACCINE] Future Scheduled 2023-01-12 DIABETIC FOOT EXAM Metho dist Test 16:28:07 [code = DIABETIC Hospital FOOT EXAM] Future Scheduled 2023-01-12 Pneumococcal Postponed from [facility] 16:28:07 Vaccine: Pediatrics [facility] (0 to 5 Years) and (Patient At-Risk Patients (6 Refused) to 64 Years) (1 - PCV) [code = Pneumococcal Vaccine: Pediatrics (0 to 5 Years) and At-Risk Patients (6 to 64 Years) (1 - PCV)] Instructions Mariah Orthoped [facility] Sports Medicine Encounters Start End Encounter Admission Attending Care Care Encounter Source Date/Time Date/Time Type Type Clinicians Facility Department ID 2019-12-18 Inpatient Kim [facility]IRA [facility] [id number] [place] 08:00:00 [facility] 2019-12-18 Inpatient Kim OLIVEIRA [facility] [id number] [place] 07:00:00 [facility] 2023-08-07 2023-08-07 Outpatient Victoria ACOSTA [facility] [id number] Univers 14:30:00 14:30:[address] [facility] 2023-08-01 2023-08-01 Outpatient Victoria CARROLL [facility] [id number] Univers 14:30:00 23:59:[address] [facility] 2023-08-01 2023-08-01 [facility] 1.2.840.114 [id number] Univers 14:30:00 23:59:00 Encounter Javier MIMS 350.1.13.10 ity [facility] [place].7.2.[place] [id number] [facility] 843 [facility] 2023-07-31 2023-07-31 Outpatient R JUANCARLOS GTZMNCodi [facility] [id number] Univers 13:30:00 13:30:00 [facility] 2023-07-25 2023-07-25 [facility] [id number] Univers 14:30:00 14:30:00 SENDIL ity [facility] 2023-07-19 2023-07-19 Telephone KARINE Carroll 1.2.680.437 [id number] Univers 00:00:00 00:00:00 Sendmeera BURROUGHS 350.1.13.10 ity [facility] 4.2.7.2.686 Jeanmarie as [id number] [facility] [address] 2023-07-17 2023-07-17 Transition AILEEN Sommer 1.2.840.114 [id number] Univers 00:00:00 00:00:00 of Care Damien Snyder KARI 350.1.13.10 ity [facility] 4.2.7.2.[place] [id number] [facility] [address] 2023-07-16 2023-07-16 Outpatient R RADIOLOGY [facility] [id number] Univers 00:00:00 00:00:[address] [facility] 2023-07-16 2023-07-16 Telephone Romero 1.2.840.1 [id number] Methodi 00:00:00 00:00:[address] 3.430.2.7 Hospit a .3.956461 l .8 2023-07-15 2023-07-15 Outpatient X DUNCAN [facility] [id number] Univers 03:37:00 18:27:00 DONAL pickering o f [facility] 2023-07-15 2023-07-15 Emergency Jon Howard [facility] 1.2.840. 114 [id number] [facility] 03:37:00 18:27:00 Donal Dent 350.1.13.10 malena IDALIA 4.2.7.2.686 [facility] [id number] [address] 2023-06-12 2023-06-12 Telephone Bryan, 1.2.840.1 [id number] [id number] Methodi 00:00:00 00:00:[address] 3.430.2.7 Hospit a .3.639719 l .8 2023-06-11 2023-06-11 Orders Romero, 1.2.840.1 [id number] 95458 52453 Methodi 00:00:00 00:00:00 Only Wondiful 92385.1.[address] 3.430.2.7 Hospit a .3.134214 l .8 2023-06-07 2023-06-07 Office Romero, 1.2.840.1 [id number] 39024 75210 Methodi 10:40:00 12:24:02 Visit Wondiful 78493.1.[address] 3.430.2.7 Hospit a .3.011783 l .8 2023-06-07 2023-06-07 Lab Romero, 1.2.840.1 [id number] 72980 04282 Methodi 12:05:00 12:10:[address] 3.430.2.7 Hospit a .3.975098 l .8 2023-06-07 2023-06-07 Outpatient ROMERO [facility] [id number] [place] 00:00:00 00:00:00 [address] 2023-06-07 2023-06-07 Outpatient ROMERO [facility] [id number] [place] 00:00:00 00:00:[address] 2023-05-21 2023-05-21 Outpatient Victoria ALLEN [facility] [id number] Univers 17:00:00 17:40:[address] [facility] 2023-05-21 2023-05-21 Urgent SongYumiko [facility] 1.2.840.114 1 [id number] Univers 17:00:00 17:40:30 Care Unknown, Attending HEALTH 350.1.13.10 [facility] 4.2.7.2.686 Jeanmarie as CHOLO?BLEA [phone] [address] MEDICAL OFFICE BUILDING 2023-05-21 2023-05-21 Orders Doctor KARINE 1.2.840.114 [id number] Univers 00:00:00 00:00:00 Only Unassigned, MANJEET 350.1.13.10 ity of [place] [facility] 4.2.7.2.686 Jeanmarie as [id number] [address] 2023-04-22 2023-04-22 Orders Romero, 1.2.840.1 [id number] 06042 73424 Methodi 00:00:00 00:00:00 Only Wondiful 36669.1.[address] 3.430.2.7 Hospit a .3.526239 l .8 2023-04-06 2023-04-06 Lab Romero, 1.2.840.1 [id number] 85070 35063 Methodi 11:05:00 11:10:[address] 3.430.2.7 Hospit a .3.562434 l .8 2023-04-06 2023-04-06 Office Romero, 1.2.840.1 [id number] 33869 04991 Methodi 10:20:00 10:54:00 Visit Wondiful 02510.1.[address] 3.430.2.7 Hospit a .3.323085 l .8 2023-04-06 2023-04-06 Outpatient ROMERO [facility] [id number] [place] 00:00:00 00:00:00 [address] 2023-04-06 2023-04-06 Outpatient ROMERO [facility] [id number] 2321 [place] 00:00:00 00:00:00 WONDIF[address] 2023-03-16 2023-03-16 Outpatient ASKANDAR, [facility] [id number] [place] 00:00:00 00:00:00 [facility] [address] 2023-03-01 2023-03-01 Telephone Romero, 1.2.840.1 [id number] Methodi 00:00:00 00:00:00 Wondiful 34039.1.1 744 3.430.2.7 Hospit a .3.899530 l .8 2023-02-28 2023-02-28 Outpatient FOG_Braly_H AOSM AO 62 3604-20 Mariah 00:00:00 00:00:00 Sonu 970943 Orth ope [facility] 2023-02-19 2023-02-19 Outpatient FOG_Braly_H AOSM AO 626 [id number] Mariah 00:00:00 00:00:00 Sonu 798909 Orth ope dic Sports Medicin e 2023-01-25 2023-01-25 [facility] 1.2.840.114 [id number] [facility] 00:00:00 00:00:00 Wondiful A [facility] 350.1.13.10 [facility] 4.2.7.2.686 Jeanmarie as CHOLO?BLEA [phone] [address] OFFICE [facility] 2023-01-24 2023-01-24 Outpatient FOG_Braly_H AOSM AO 626 [facility]420 Mariah 00:00:00 00:00:00 Sonu 341920 Orth ope dic Sports Medicin e 2023-01-24 2023-01-24 [place] - Ortho [id number] Mariah 00:00:00 00:00:00 JUSTUS Arias [facility] MD: 7401 FOG_Ofc dic [facility] Spo [facility] [place] [phone] , Ph. [phone] 2023-01-24 2023-01-24 [facility]ivet [facility] 1.2.840.114 [id number] 0707 [facility] 00:00:00 00:00:00 Wondiful A [facility] 350.1.13.10 [facility] 4.2.7.2.686 Jeanmarie as CHOLO?BLEA [id number] Pr quinten [address] OFFICE BUILDING 2022-12-13 2022-12-13 Telephone Jacob, 1.2.840.8 [id number] 709 [id number] Methodi 00:00:00 00:00:[address] 3.430.2.7 Hospit a .3.640777 l .8 2022-12-13 2022-12-13 Telephone Jacob, 1.2.840.6 [id number] 891 6595003 Methodi 00:00:00 00:00:[address] 3.430.2.7 Hospit a .3.509276 l .8 2022-12-11 2022-12-11 Telephone Jacob, 1.2.840.8 [id number] 375 8252641 Methodi 00:00:00 00:00:[address] 3.430.2.7 Hospit a .3.236785 l .8 2022-12-11 2022-12-11 Telephone Jacob, 1.2.840.2 [id number] 150 4878777 Methodi 00:00:00 00:00:[address] 3.430.2.7 Hospit a .3.761777 l .8 2022-12-07 2022-12-07 Telephone [place], 1.2.840.2 [id number] 547 2539308 Methodi 00:00:00 00:00:[address] 3.430.2.7 Hospit a .3.469225 l .8 2022-12-07 2022-12-07 Telephone [place], 1.2.840.8 [id number] 790 1350050 Methodi 00:00:00 00:00:[address] 3.430.2.7 Hospit a .3.464926 l .8 2022-11-27 2022-11-27 Telephone Romero, 1.2.840.1 [id number] 682 4450782 Methodi 00:00:00 00:00:[address] 3.430.2.7 Hospit a .3.545874 l .8 2022-11-27 2022-11-27 Telephone Romero, 1.2.840.1 071504159 966 5702989 Methodi 00:00:00 00:00:[address] 3.430.2.7 Hospit a .3.971763 l .8 2022-11-19 2022-11-19 Orders [place], 1.2.840.1 [id number] 24673 Methodi 00:00:00 00:00:00 Only Wondiful 61860.1.[address] 3.430.2.7 Hospit a .3.386021 l .8 2022-11-19 2022-11-19 Orders [place], 1.2.840.1 [id number] 21001 76831 Methodi 00:00:00 00:00:00 Only Wondiful 83761.1.[address] 3.430.2.7 Hospit a .3.902995 l .8 2022-11-09 2022-11-09 Travel 1.2.840.1 1.2.636.098 5560 029081 Methodi 00:00:00 00:00:[address] 3.430.2.7 0.2.7.3.698 Ho spita .3.217504 084.8 l .8 2022-11-09 2022-11-09 Travel 1.2.840.1 1.2.931.501 8303 537146 Methodi 00:00:00 00:00:[address] 3.430.2.7 0.2.7.3.698 Ho spita .3.706135 084.8 l .8 2022-11-07 2022-11-07 Refill [place], 1.2.840.1 [id number] 99416 Methodi 00:00:00 00:00:[address] 3.430.2.7 Hospit a .3.090751 l .8 2022-11-07 2022-11-07 Refill Romero, 1.2.840.1 [id number] 00767 Methodi 00:00:00 00:00:[address] 3.430.2.7 Hospit a .3.000835 l .8 2022-11-06 2022-11-06 Lab [place], 1.2.840.1 [id number] 79178 Methodi 15:30:00 15:35:[address] 3.430.2.7 Hospit a .3.588204 l .8 2022-11-06 2022-11-06 Lab [place], 1.2.840.1 [id number] 00 Methodi 15:30:00 15:35:[address] 3.430.2.7 Hospit a .3.893030 l .8 2022-11-06 2022-11-06 Office Romero, 1.2.840.1 [id number] 63787 Methodi 14:00:00 15:20:04 Visit Wondiful 23376.1.[address] 3.430.2.7 Hospit a .3.889301 l .8 2022-11-06 2022-11-06 Office Romero, 1.2.840.1 [id number] 06039 Methodi 14:00:00 15:20:04 Visit Wondiful 92385.1.[address] 3.430.2.7 Hospit a .3.974449 l .8 2022-10-05 2022-10-05 [facility] 1.2.174.983 5683 8521 Univers 00:00:00 00:00:00 RegainGo 350.1.13.10 it y of [place] 4.2.7.2.686 Jeanmarie as CHOLO?BLEA [phone] [address] OFFICE [facility] 2022-10-04 2022-10-04 Telephone [facility] 1.2.840.114 [id number] [id number] Univers 00:00:00 00:00:00 Wondiful A [facility] 350.1.13.10 ity of [place] 4.2.7.2.686 Jeanmarie as CHOLO?BLEA [id number] [address] OFFICE [facility] 2022-10-03 2022-10-03 Outpatient R FEDERICO [facility] [id number] Univers 15:20:00 16:21:[address] [facility] 2022-10-03 2022-10-03 Urgent Adrianne Caballero [facility] 1.2.840.114 [id number] Univers 15:20:00 16:21:18 Care Unknown, Attending [facility] 350.1.13.10 ity of [place] 4.2.7.2.686 Jeanmarie as CHOLO?BLEA [phone] [address] OFFICE [facility] 2022-10-03 2022-10-03 Orders Doctor KARINE 1.2.840.114 [id number] Univers 00:00:00 00:00:00 Only Unassigned, MANJEET 350.1.13.10 ity of [place] [facility] 4.2.7.2.686 Jeanmarie as [id number] [address] 2022-06-21 2022-06-21 Travel 1.2.840.1 1.2.481.393 0047 562746 Methodi 00:00:00 00:00:[address] 3.430.2.7 0.2.7.3.698 Ho spita .3.118130 084.8 l .8 2022-04-27 2022-04-27 Outpatient FOG_Braly_H AOSM AOSM 626 3604-20 Mariah 00:00:00 00:00:00 Sonu 796771 Orth ope dic Sports Medicin e 2022-04-27 2022-04-27 Outpatient FOG_Braly_H AOSM AOSM 626 3604-20 Mariah 00:00:00 00:00:00 Sonu 802353 Orth ope dic Sports Medicin e 2022-04-27 2022-04-27 Outpatient FOG_Braly_H AOSM AOSM 626 3604-20 Mariah 00:00:00 00:00:00 Sonu 679438 Orth ope dic Sports Medicin e 2022-04-27 2022-04-27 Outpatient FOG_Braly_H AOSM AOSM 626 3604-20 Mariah 00:00:00 00:00:00 Sonu 225145 Orth ope dic Sports Medicin e 2022-04-27 2022-04-27 Outpatient FOG_Braly_H AOSM AOSM 626 3604-20 Mariah 00:00:00 00:00:00 Sonu 315085 Orth ope dic Sports Medicin e 2022-04-27 2022-04-27 Outpatient FOG_Braly_H AOSM AOSM 626 3604-20 Mariah 00:00:00 00:00:00 Sonu 680509 Orth ope dic Sports Medicin e 2022-04-20 2022-04-20 Outpatient ENMA Beavers, [facility] [address] [id number] [facility] 08:00:00 08:00:00 Lexus Brown [facility] 2022-04-14 2022-04-14 Outpatient FOG_Braly_H AOSM AOSM 626 3604-20 Mariah 08:00:00 08:00:00 oSnu 778842 Orth ope dic Sports Medicin e 2022-03-10 2022-03-10 Outpatient FOG_Braly_H AOSM AOSM 626 3604-20 Mariah 04:58:00 04:58:00 Sonu 378178 Orth ope dic Sports Medicin e 2022-02-07 2022-02-07 Travel 1.2.840.1 1.2.046.502 9510 164950 Methodi 00:00:00 00:00:[address] 3.430.2.7 0.2.7.3.698 Ho spita .3.303015 084.8 l .8 2021-11-21 2021-11-21 Orders Doctor KARINE 1.2.840.114 [id number] Univers 00:00:00 00:00:00 Only UnassignedMANJEET 350.1.13.10 ity of [place] [facility] 4.2.7.2.686 Jeanmarie as [phone] [facility] [address] 2021-11-10 2021-11-11 Inpatient EL Hugo HCATO SURG [id number] [facility] 07:12:00 15:10:[address] Orthope dic Hospita 2021-11-08 2021-11-08 Telephone KARINE Sahni 1.2.835.558 [id number] 9131 Univers 00:00:00 00:00:00 Gavin BURROUGHS 350.1.13.10 ity of [facility] 4.2.7.2.686 Jeanmarie as [id number] [facility] 019 Branch 2021-11-07 2021-11-07 Outpatient Victoria ALLEN [facility] [id number] Univers 16:00:00 16:19:23 YUMIKO ity [facility] 2021-11-07 2021-11-07 Laboratory Only, Ang Db Test [facility] 1.2.8 40.114 [id number] Univers 16:00:00 16:15:00 Only Alejandro [facility] 350.1.13.10 ity of [place] 4.2.7.2.686 Jeanmarie as CHOLO?BLEA [id number] [address] MEDICAL OFFICE BUILDING 2021-10-25 2021-10-25 Outpatient PARAM AriasCL LABO [id number] [facility] 15:03:00 15:03:[address] 2021-10-25 2021-10-25 Outpatient PARAM AriasWU REFE [id number] [facility] 13:37:00 13:37:[address] 2021-10-21 2021-10-21 Orders Doctor MILTON 1.2.840.114 [id number] Univers 00:00:00 00:00:00 Only UnassignedMANJEET 350.1.13.10 ity of [place] [facility] 4.2.7.2.686 Jeanmarie as [id number] [address] 2021-10-19 2021-10-19 Refivet [facility] 1.2.840.114 [id number] Univers 00:00:00 00:00:00 Wondiful A HEALTH 350.1.13.10 ity of [place] 4.2.7.2.686 Jeanmarie as CHOLO?BLEA [id number] [address] MEDICAL OFFICE [facility] 2021-10-19 2021-10-19 Refivet [facility] 1.2.840.114 [id number] Univers 00:00:00 00:00:00 Wondiful A HEALTH 350.1.13.10 ity of [place] 4.2.7.2.686 Jeanmarie as CHOLO?BLEA [id number] [address] MEDICAL OFFICE [facility] 2021-10-14 2021-10-14 Outpatient R ROMERO [facility] [id number] Univers 13:15:00 14:09:09 [address] ity o f [facility] 2021-10-14 2021-10-14 Office [facility] 1.2.840.114 [id number] Univers 13:15:00 14:09:09 Visit Wondiful A HEALTH 350.1.13.10 ity of [place] 4.2.7.2.686 Jeanmarie as CHOLO?BLEA [id number] [address] MEDICAL OFFICE [facility] 2021-10-14 2021-10-14 Outpatient Victoria JASSO [facility] [id number] Univers 13:15:00 14:09:[address] o [address] [facility] 2021-09-22 2021-09-22 Outpatient Victoria JASSO [facility] [id number] Univers 11:00:00 11:00:00 [address] ity o f [facility] 2021-09-20 2021-09-20 Outpatient Victoria JASSO [facility] [id number] Univers 10:15:00 10:15:[address] o [address] [facility] 2021-09-20 2021-09-20 Refivet [facility] 1.2.840.114 [id number] Univers 00:00:00 00:00:00 Wondiful A HEALTH 350.1.13.10 ity of [place] 4.2.7.2.686 Jeanmarie as CHOLO?BLEA [id number] Pr quinten [address] MEDICAL OFFICE BUILDING 2021-09-16 2021-09-16 Outpatient R ROMERO [facility] [id number] Univers 15:15:00 15:15:[address] o f [facility] 2021-09-16 2021-09-16 Outpatient R ROMERO [facility] [id number] Univers 15:15:00 15:15:00 [address] ity o f [facility] 2021-09-01 2021-09-01 Outpatient R CHRIS [facility] [id number] Univers 11:15:00 11:15:00 KATHY [facility] 2021-08-24 2021-08-24 Outpatient R [facility]ENDO[facility] [id number] Univers 14:40:00 14:40:00 TRELL GTZ [facility] 2021-08-15 2021-08-15 Outpatient R ROMERO [facility] [id number] Univers 14:15:00 14:15:[address] ity o f [facility] 2021-08-15 2021-08-15 Outpatient R ROMERO [facility] [id number] Univers 14:15:00 14:15:00 WONDIFUL ity o [facility] 2021-08-08 2021-08-08 Outpatient R ROMERO [facility] [id number] Univers 15:00:00 15:00:00 W[address]IF[address] ity o f [facility] 2021-08-01 2021-08-01 Orders Doctor KARINE 1.2.840.114 [id number] Univers 00:00:00 00:00:00 Only Unassigned, MANJEET 350.1.13.10 ity of [place] [facility] 4.2.7.2.686 Jeanmarie as [id number] [address] 2021-07-26 2021-07-26 Telephone Romero [facility] 1.2.840.114 [id number] Univers 00:00:00 00:00:00 Wondiful A Health 350.1.13.10 ity of [place] 4.2.7.2.686 Jeanmarie as Cholo?Blea [phone] Pr quinten horton 044 [facility] Office [facility] 2021-07-22 2021-07-22 Outpatient R RENETTA [facility] [id number] Univers 09:15:00 09:57:56 HORTENCIA ity [facility] 2021-07-22 2021-07-22 Office [facility] 1.2.840.114 [id number] Univers 09:11:34 09:57:56 Visit Hortencia SPECIALTY 350.1.13.10 ity of [place]2.7.2.[place] [id number] Pr quinten HOLLY [address] [place] [address] 2021-07-22 2021-07-22 Outpatient R RENETTA [facility] [id number] Univers 09:15:00 09:15:00 HORTENCIA ity [facility] 2021-07-20 2021-07-20 Telephone Romero [facility] 1.2.840.114 [id number] Univers 00:00:00 00:00:00 Wondiful A Health 350.1.13.10 ity of [place] 4.2.7.2.686 Jeanmarie as Cholo?Blea [phone] Pr quinten horton [address] [place] [address] Office [facility] 2021-07-18 2021-07-18 Office Romero [facility] 1.2.840.114 [id number] Univers 15:36:04 16:43:08 Visit Wondiful A Health 350.1.13.10 ity of [place] 4.2.7.2.686 Jeanmarie as Cholo?Blea [phone] Pr quinten horton [address] [place] [address] Office [facility] 2021-07-18 2021-07-18 Outpatient R ROMERO [facility] [id number] Univers 15:15:00 15:15:00 [address] ity o f [facility] 2021-07-15 2021-07-15 Imm/Inj Nurse, Adc Pob Immunization [facility] 1.2.840.114 [id number] Univers 16:23:47 16:24:34 Visit FarhatAbelardo [place] 350.1.13 .10 ity of [place]7.2.[place] Profess[place] [phone] Pr quinten cohn [address] [facility] 2021-07-15 2021-07-15 Outpatient R FARHAT, [facility] [id number] Univers 16:00:00 16:00:00 ABELARDO itmalena [facility] 2021-07-12 2021-07-12 Outpatient R RENETTA, [facility] [id number] Univers 14:45:00 14:45:00 HORTENCIA [facility] 2021-07-12 2021-07-12 [facility] 1.2.840.114 [id number] Univers 00:00:00 00:00:00 Management WonDidLog A Smartjog 350.1.13.10 ity of [place] [id number] Jeanmarie as Cholo?Blea [phone] Pr quinten griffithey [address] [facility] 2021-07-07 2021-07-07 Greeting Card Maker Tech, Adc Sleep Lab [facility] 1.2 .840.114 [id number] Univers 13:22:33 13:37:33 Visit Trell Gtz 350.1.13. 10 [place] [phone] [facility] [address] 2021-07-07 2021-07-07 Outpatient R TRELL GTZ [facility] [id number] Univers 13:00:00 13:00:00 TRELL GTZ itmalena [facility] 2021-07-05 2021-07-05 Laboratory Only, Adc Test [facility] 1.2.840. 114 [id number] Univers 14:20:12 14:35:12 Only Trell Gtz 350.1.13. 10 [place] [phone] [facility] [address] 2021-07-05 2021-07-05 Outpatient R [facility] [id number] Univers 14:00:00 14:00:[address] [facility] 2021-07-05 2021-07-05 Orders Doctor KARINE 1.2.840.114 [id number] Univers 00:00:00 00:00:00 Only Unassigned, MANJEET 350.1.13.10 ity of [place] [facility] 4.2.7.2.686 Jeanmarie as [phone] [address] 2021-06-30 2021-06-30 Outpatient R JUANCARLOS GTZMNCodi [facility] [id number] Univers 13:00:00 13:00:00 [facility] ity of [facility] 2021-06-29 2021-06-29 Greeting Card Maker Lab, Ang - Db [facility] 1.2.840.1 14 [id number] Univers 14:07:47 14:22:47 Visit Fer Jasso [facility] 350.1.13.1 0 ity of [place] 4.2.7.2.686 Jeanmarie as Cholo?Blea [phone] Pr quinten horton [address] [facility] 2021-06-29 2021-06-29 Outpatient R [facility] [id number] Univers 14:00:00 14:00:[address] [facility] 2021-06-29 2021-06-29 Outpatient R [facility] [id number] Univers 13:15:00 13:15:[address] [facility] 2021-06-29 2021-06-29 Telephone Romero [facility] 1.2.840.114 [id number] Univers 00:00:00 00:00:00 Wondiful [facility] 350.1.13.10 [place]y of [place] 4.2.7.2.686 Jeanmarie as Cholo?Blea [phone] Pr [facility] [address] [facility] 2021-06-28 2021-06-28 Outpatient R [facility] [id number] Univers 15:30:00 15:30:[address] [facility] 2021-06-28 2021-06-28 [facility] [id number] Univers 14:30:00 14:30:00 WONDIFUL ity o f [facility] 2021-06-26 2021-06-26 Case Romero [facility] 1.2.840.114 [id number] Univers 00:00:00 00:00:00 Management Fer [facility] 350.1.13.10 [place] 4.2.7.2.686 Jeanmarie as Cholo?Blea [phone] Pr quinten horton 0[address] [facility] 2021-06-24 2021-06-24 Greeting Card Maker Lab, Ang - Db [facility] 1.2.840.1 14 [id number] Univers 15:21:08 15:36:08 Visit Fer [facility] 350.1.13.1 0 ity of [place] 4.2.7.2.686 Jeanmarie as Cholo?Blea [phone] Pr quinten horton [address] [facility] 2021-06-24 2021-06-24 Imm/Inj Vaccine, Ang Db Cbc Fam [facility] 1. 2.840.114 [id number] Univers 15:23:48 15:33:48 Visit Fer [facility] 350.1.13.1 0 ity of [place] 4.2.7.2.686 Jeanmarie as Cholo?Blea [phone] Pr quinten horton [address] [place] [address] Office [facility] 2021-06-24 2021-06-24 Office Romero [facility] 1.2.840.114 [id number] Univers 14:11:06 15:23:03 Visit Fer [facility] 350.1.13.10 ity of [place] 4.2.7.2.686 Jeanmarie as Cholo?Blea [phone] Pr quinten horton [address] [place] [address] Office [facility] 2021-06-24 2021-06-24 Outpatient R ROMERO [facility] [id number] Univers 14:00:00 14:00:00 WONDIFUL ity o [facility] 2021-06-17 2021-06-17 Outpatient R ROMERO [facility] [id number] Univers 16:00:00 16:00:00 WONDIFUL ity o f [facility] 2021-06-13 2021-06-13 Refill Romero [facility] 1.2.840.114 [id number] Univers 00:00:00 00:00:00 Wondiful A [facility] 350.1.13.10 ity of [place] 4.2.7.2.686 Jeanmarie as Professio [phone] [address] Office [facility] 2021-06-03 2021-06-03 Outpatient R ROMERO [facility] [id number] Univers 15:15:00 15:15:00 WONDIFUL ity o f [facility] 2021-05-16 2021-05-16 [facility] 1.2.840.114 [id number] Univers 00:00:00 00:00:00 Wondiful [facility] 350.1.13.10 ity of [place] 4.2.7.2.686 Jeanmarie as Cholo?Blea [phone] [address] Office [facility] 2021-04-27 2021-04-27 Orders Doctor KARINE 1.2.840.114 [id number] Univers 00:00:00 00:00:00 Only Unassigned, MANJEET 350.1.13.10 ity of [place] [facility] 4.2.7.2.686 Jeanmarie as [phone] [address] 2021-04-19 2021-04-19 [facility]phone [facility] 1.2.840.114 [id number] Univers 00:00:00 00:00:00 Wondiful [facility] 350.1.13.10 ity of [place] 4.2.7.2.686 Jeanmarie as Professio [phone] [address] Office [facility] 2021-03-22 2021-03-22 Telephone [facility] 1.2.840.114 [id number] Univers 00:00:00 00:00:00 Wondiful A Health 350.1.13.10 ity of [place] 4.2.7.2.686 Jeanmarie as Professio [phone] [address] Office [facility] 2021-03-22 2021-03-22 [facility]phone [facility] 1.2.840.114 [id number] 00:00:00 00:00:00 Wondiful A Health 350.1.13.10 [place] 4.2.7.2.686 Professio [phone] [place] [address] Office Building [facility] 2021-03-18 2021-03-18 Refill [facility] 1.2.840.114 [id number] Univers 00:00:00 00:00:00 Wondiful A Health 350.1.13.10 ity of [place] 4.2.7.2.686 Jeanmarie as Professio [phone] [address] Office [facility] 2021-03-18 2021-03-18 Refill [facility] 1.2.840.114 [id number] 00:00:00 00:00:00 Wondiful A Health 350.1.13.10 [place] 4.2.7.2.686 Professio [phone] [address] 2021-03-14 2021-03-14 Telephone [facility] 1.2.840.114 [id number] [facility] 00:00:00 00:00:00 Wondiful A Health 350.1.13.10 ity of [place] 4.2.7.2.686 Jeanmarie as Professio [phone] [address] Office [facility] 2021-03-14 2021-03-14 Orders Doctor KARINE 1.2.840.114 [id number] [facility] 00:00:00 00:00:00 Only Unassigned, MANJEET 350.1.13.10 ity of [place] [facility] 4.2.7.2.686 Jeanmarie as [phone] [address] 2021-03-14 2021-03-14 Telephone [facility] 1.2.840.114 [id number] 00:00:00 00:00:00 Wondiful A Health 350.1.13.10 [place] 4.2.7.2.686 Professio [phone] [place] [address] Office Building One 2021-03-14 2021-03-14 Orders Doctor KARINE 1.2.840.114 [id number] 00:00:00 00:00:00 Only Unassigned, MANJEET 350.1.13.10 [place] [facility] 4.2.7.2.686 [phone] 009 2021-02-24 2021-02-24 Orders Doctor KARINE 1.2.840.114 [id number] Univers 00:00:00 00:00:00 Only Unassigned, MANJEET 350.1.13.10 ity of [place] [facility] 4.2.7.2.686 Jeanmarie as [phone] [address] 2021-02-21 2021-02-21 [facility] 1.2.840.114 [id number] Univers 00:00:00 00:00:00 Wondiful A [place] 350.1.13.10 [place] [phone] [address] 2021-02-17 2021-02-17 Greeting [facility] Lab, Adc Fam Pob I [facility] 1.2. 840.114 [id number] Univers 11:43:23 12:03:23 Visit Fer Jasso [facility] 350.1.13.1 0 ity of [place] 4.2.7.2.686 Jeanmarie as Professio [phone] [address] Office [facility] 2021-02-17 2021-02-17 Outpatient R ROMERO [facility] [id number] Univers 11:40:00 11:40:[address] o [address] [facility] 2021-02-17 2021-02-17 Outpatient R ROMERO [facility] [id number] Univers 11:30:00 11:30:[address] ity o [address] [facility] 2021-02-15 2021-02-15 [facility]phone [facility] 1.2.840.114 [id number] Univers 00:00:00 00:00:00 [facility] 350.1.13.10 ity of [place] 4.2.7.2.686 Jeanmarie as Professio [phone] [address] Office [facility] 2021-02-11 2021-02-11 Office [facility] 1.2.840.114 [id number] Univers 16:15:23 18:27:30 Visit [facility] 350.1.13.10 ity of [place] 4.2.7.2.686 Jeanmarie as Professio [phone] [address] Office Building One 2021-02-11 2021-02-11 Outpatient R ROMERO [facility] [id number] Univers 15:45:00 15:45:[address] o [address] [facility] 2021-02-11 2021-02-11 Outpatient R ROMERO [facility] [id number] Univers 15:45:00 15:45:00 [address] ity o f [facility] 2021-02-11 2021-02-11 Orders Doctor KARINE 1.2.840.114 [id number] Univers 00:00:00 00:00:00 Only Unassigned, MANJEET 350.1.13.10 it[place] of [place] [facility] 4.2.7.2.686 Jeanmarie as [phone] [address] 2021-02-11 2021-02-11 Letter Doctor KARINE 1.2.840.114 [id number] Univers 00:00:00 00:00:00 (Out) Unassigned, MANJEET 350.1.13.10 [place]y of [place] [facility] 4.2.7.2.686 Jeanmarie as [phone] [address] 2020-12-13 2020-12-13 Orders Doctor KARINE 1.2.840.114 [id number] Univers 00:00:00 00:00:00 Only Unassigned, MANJEET 350.1.13.10 [place] of [place] [facility] 4.2.7.2.686 Jeanmarie as [phone] [address] 2020-11-02 2020-11-02 Orders Doctor KARINE 1.2.840.114 [id number] Univers 00:00:00 00:00:00 Only Unassigned, MANJEET 350.1.13.10 [place]y of [place] [facility] 4.2.7.2.686 Jeanmarie as [phone] [address] 2020-10-06 2020-10-06 Refivet Jasso [facility] 1.2.840.114 [id number] Univers 00:00:00 00:00:00 W[facility] 350.1.13.10 ity of [place] 4.2.7.2.686 Jeanmarie as Professio [phone] [address] Office [facility] 2020-07-29 2020-07-29 [facility]phone [facility] 1.2.840.114 [id number] Univers 00:00:00 00:00:00 [facility] 350.1.13.10 ity of [place] 4.2.7.2.686 Jeanmarie as Professio [phone] [address] Office [facility] 2020-07-19 2020-07-19 [facility] 1.2.840.114 [id number] Univers 00:00:00 00:00:00 W[facility] 350.1.13.10 ity of [place] 4.2.7.2.686 Jeanmarie as Professio [phone] [address] Office [facility] 2020-07-07 2020-07-07 [facility] 1.2.840.114 [id number] Univers 00:00:00 00:00:00 W[facility] 350.1.13.10 ity of [place] 4.2.7.2.686 Jeanmarie as Professio [phone] [address] One 2020-07-07 2020-07-07 Orders Doctor KARINE 1.2.840.114 [id number] Univers 00:00:00 00:00:00 Only Unassigned, MANJEET 350.1.13.10 [place] of [place] [facility] 4.2.7.2.686 Jeanmarie as [phone] [address] 2020-06-28 2020-06-28 [facility] [id number] Univers 13:00:00 13:00:[address] o [address] [facility] 2020-06-21 2020-06-21 Orders Doctor KARINE 1.2.840.114 [id number] Univers 00:00:00 00:00:00 Only Unassigned, MANJEET 350.1.13.10 [place] of [place] [facility] 4.2.7.2.686 Jeanmarie as [phone] [address] 2020-05-24 2020-05-24 [facility] 1.2.840.114 [id number] Univers 00:00:00 00:00:00 Wondiful A [place] 350.1.13.10 [place] [phone] [address] 2020-05-17 2020-05-17 [facility] [id number] Univers 10:30:00 10:30:00 MILLIE ity [facility] 2020-04-28 2020-04-28 Telephone [facility] 1.2.840.114 [id number] Univers 00:00:00 00:00:00 Wondiful A [place] 350.1.13.10 [place] [phone] [address] 2020-04-28 2020-04-28 Telephone [facility] 1.2.840.114 [id number] Univers 00:00:00 00:00:00 Wondiful A [place] 350.1.13.10 [place]2.[place] [phone] [address] 2020-04-20 2020-04-20 Orders Doctor KARINE 1.2.840.114 [id number] Univers 00:00:00 00:00:00 Only Unassigned, MANJEET 350.1.13.10 [place] of [place] [facility] 4.2.7.2.686 Jeanmarie as [phone] [address] 2020-04-16 2020-04-16 Telephone [facility] 1.2.840.114 [id number] Univers 00:00:00 00:00:00 Wondiful A [place] 350.1.13.10 [place]2.[place] [phone] [address] 2020-04-15 2020-04-15 Orders Doctor KARINE 1.2.840.114 [id number] Univers 00:00:00 00:00:00 Only Unassigned, MANJEET 350.1.13.10 [place] of [place] [facility] 4.2.7.2.686 Jeanmarie as [phone] [address] 2020-04-13 2020-04-13 [facility] 1.2.840.114 [id number] Univers 00:00:00 00:00:00 Wondiful A [place] 350.1.13.10 [place]2.[place] [phone] [address] 2020-04-13 2020-04-13 [facility] 1.2.840.114 [id number] Univers 00:00:00 00:00:00 [facility] 350.1.13.10 ity of [place] 4.2.7.2.686 Jeanmarie as Professio [phone] [address] Office [facility] 2020-04-12 2020-04-12 [facility] 1.2.840.114 [id number] Univers 00:00:00 00:00:00 [facility] 350.1.13.10 ity of [place] 4.2.7.2.686 Jeanmarie as Professio [phone] [address] Office [facility] 2020-04-12 2020-04-12 Orders Doctor KARINE 1.2.840.114 [id number] Univers 00:00:00 00:00:00 Only Unassigned, MANJEET 350.1.13.10 [place] of [place] [facility] 4.2.7.2.686 Jeanmarie as [phone] [address] 2020-04-01 2020-04-01 Outpatient R ROMERO [facility] [id number] Univers 13:45:00 13:45:[address] o f [facility] 2020-03-26 2020-03-26 [facility] 1.2.840.114 [id number] Univers 11:33:02 12:20:26 Visit Wondiful A [place] 350.1.13.10 [place] [phone] [address] 2020-03-26 2020-03-26 Outpatient R ROMERO [facility] [id number] Univers 11:15:00 11:15:[address] o [address] [facility] 2020-03-26 2020-03-26 Patient Jorge [facility] 1.2.840.114 [id number] Univers 00:00:00 00:00:00 Outreach [facility] 350.1.13.10 i [place] of [place] 4.2.7.2.686 Jeanmarie as Professio [phone] [address] Office [facility] 2020-03-24 2020-03-24 Telephone [facility] 1.2.840.114 [id number] Univers 00:00:00 00:00:00 Wondiful A Health 350.1.13.10 ity of [place] 4.2.7.2.686 Jeanmarie as Professio [phone] [address] 2020-03-19 2020-03-19 Orders Doctor KARINE 1..840.114 [id number] Univers 00:00:00 00:00:00 Only Unassigned, MANJEET 350.1.13.10 [place]y of [place] [facility] 4.2.7.2.686 Jeanmarie as [phone] [address] 2020-01-20 2020-01-20 [facility] [id number] Univers 10:45:00 10:45:[address] o f [facility] 2020-01-20 2020-01-20 [facility] 1.2.840.114 [id number] Univers 08:19:07 08:34:07 ne Visit Wondiful A [place] 350.1.13.10 [place] [phone] [address] 2020-01-19 2020-01-19 Telephone [facility] 1.2.840.114 [id number] Univers 00:00:00 00:00:00 Wondiful A Health 350.1.13.10 ity of [place] 4.2.7.2.686 Jeanmarie as Professio [phone] [address] Office [facility] 2019-12-12 2019-12-12 [facility]phone [facility] 1.2.840.114 [id number] Univers 00:00:00 00:00:00 Wondiful A Health 350.1.13.10 ity of [place] 4.2.7.2.686 Jeanmarie as Professio [phone] [place] [address] [address] Office Building [facility] 2019-12-05 2019-12-05 [facility] [id number] Univers 15:30:00 15:30:[address] o [address] [facility] 2019-11-28 2019-11-28 [facility] 1.2.840.114 [id number] Univers 00:00:00 00:00:00 Wondiful A Health 350.1.13.10 ity of [place] 4.2.7.2.686 Jeanmarie as Professio [phone] [address] Office [facility] 2019-11-27 2019-11-27 [place] [facility] 1.2.840.114 [id number] Univers 00:00:00 00:00:00 Wondiful A Health 350.1.13.10 ity of [place] 4.2.7.2.686 Jeanmarie as Professio [phone] [address] Office [facility] 2019-11-26 2019-11-26 [place] [facility] 1.2.840.114 [id number] Univers 00:00:00 00:00:00 Wondiful [facility] 350.1.13.10 ity of [place] 4.2.7.2.686 Jeanmarie as Professio [phone] [address] Office Building [facility] 2019-11-24 2019-11-24 Letter Peterson [facility] 1.2.840.114 [id number] Univers 00:00:00 00:00:00 (Out) José MULTISPEC 350.1.13.10 it[place]2.[place] [phone] [facility] AND [address] [facility] 2019-11-24 2019-11-24 Orders Doctor MILTON 1..840.114 [id number] Univers 00:00:00 00:00:00 Only Unassigned, MANJEET 350.1.13.10 [place] of [place] [facility] 4.2.7.2.686 Jeanmarie as [phone] [address] 2019-11-21 2019-11-21 [facility] 1.2.840.114 [id number] Univers 15:45:14 16:34:29 Visit W[facility]iful [facility] 350.1.13.10 ity of [place] 4.2.7.2.686 Jeanmarie as Professio [phone] [address] Office [facility] 2019-11-21 2019-11-21 [facility] [id number] Univers 15:30:00 16:34:[address] o [address] [facility] 2019-10-21 2019-11-21 [facility] 1.2.840.114 [id number] Univers 15:25:25 16:19:56 Visit [facility] 350.1.13.10 ity of [place] 4.2.7.2.686 Jeanmarie as Professio [phone] [address] Office [facility] 2019-11-13 2019-11-13 Orders Doctor KARINE 1.2.840.114 [id number] Univers 00:00:00 00:00:00 Only Unassigned, MANJEET 350.1.13.10 [place] of [place] [facility] 4.2.7.2.686 Jeanmarie as [phone] [address] 2019-11-10 2019-11-10 Telephone [facility] 1.2.840.114 [id number] Univers 00:00:00 00:00:00 Wondiful [facility] Health 350.1.13.10 ity of [place] 4.2.7.2.686 Jeanmarie as Professio [phone] [address] Office [facility] 2019-11-06 2019-11-06 Telephone [facility] 1.2.840.114 [id number] Univers 00:00:00 00:00:00 Wondiful A Health 350.1.13.10 ity of [place] 4.2.7.2.686 Jeanmarie as Professio [phone] [address] Office [facility] 2019-11-04 2019-11-04 Telephone Romero [facility] 1.2.840.114 [id number] Univers 00:00:00 00:00:00 Wondiful A Health 350.1.13.10 ity of [place] 4.2.7.2.686 Jeanmarie as Professio [phone] [address] Office [facility] 2019-10-31 2019-10-31 Orders Doctor KARINE 1.2.840.114 [id number] Univers 00:00:00 00:00:00 Only Unassigned, MANJEET 350.1.13.10 [place] of [place] [facility] 4.2.7.2.686 Jeanmarie as [phone] [address] 2019-10-30 2019-10-30 Telephone Romero [facility] 1.2.840.114 [id number] Univers 00:00:00 00:00:00 Wondiful A Health 350.1.13.10 ity of [place] 4.2.7.2.686 Jeanmarie as Professio [phone] [address] Office [facility] 2019-10-29 2019-10-29 Case Romero [facility] 1.2.840.114 [id number] Univers 00:00:00 00:00:00 Management [facility] 350.1.13.10 ity of [place] 4.2.7.2.686 Jeanmarie as Professio [phone] [address] 2019-10-24 2019-10-24 Greeting Card Maker Lab, Adc Fam Pob I [facility] 1.2. 840.114 [id number] Univers 13:05:20 13:19:44 Visit Fer Jasso [facility] 350.1.13.1 0 ity of [place] 4.2.7.2.686 Jeanmarie as Professio [phone] [facility] nal [address] [place] [address] Office [facility] 2019-10-21 2019-10-21 Orders Doctor KARINE 1.2.840.114 [id number] Univers 00:00:00 00:00:00 Only Unassigned, MANJEET 350.1.13.10 [place] of [place] [facility] 4.2.7.2.686 Jeanmarie as [phone] [facility] [address] 2019-10-15 2019-10-15 Telephone EVELYN Jasso.2.840.114 [id number] [facility] 00:00:00 00:00:00 Fer A Smartj[employer] 350.1.13.10 ity of [place] 4.2.7.2.686 Jeanmarie as Chris [phone] Pr dical nal [address] Office Building One Results Test Description Test Time Test Comments Results Result Comments Source POCT GLUCOSE (AUTOMATED) 2023-07-15 21:15:19 Test Item Value Reference Range Interpretation Comme nts POCT GLU (test code = 3828934348) 137 mg/dL 70-110 H Lab Interpretation (test code = 64411-4) Abnormal [facility] (A1C)2023-07-15 16:55:51 Test Item Value Reference Range Interpretation Comments HGB A1C (test code = 7.8 % 4.0-5.7 H 4548-4) MADELINE (test code = MADELINE) Reference RangesNormal: <5.7%Prediabetes: 5.7 - 6.4%Diabetes: > 6.5% Lab Interpretation (test Abnormal code = 01310-0) [facility]2023-07-15 16:26:54 Test Item Value Reference Range Interpretation Comments POCT GLU (test code = 5008091128) 257 mg/dL 70-110 H Lab Interpretation (test code = Abnormal 91928-0) [facility]an[facility] echo (TTE)2023-07-15 16:07:06 Test Item Value Reference Range Interpretation Comments Height (test code = 63 in 7952027535) Weight (test code = 303 lbs 4405667783) Systolic BP (test code = 151 mmHg 8089413317) Diastolic BP (test code 93 mmHg = 2831879484) Heart Rate (test code = 89 bpm 4729944240) MR max PG (test code = 40.20 mm[Hg] 3916978404) MR max coni (test code = 316.80 cm/s 8363582780) Mr max coni (test code = 316.8 m/s 7391731841) BSA (test code = 2.31 m2 7228729774) LVOT diameter (test code 2.29 cm = 6965828020) LVOT area (test code = 4.10 cm2 3147902067) Ao root diam (test code 2.50 cm = 2009123885) Aortic root (test code = 2.5 cm 0907339890) Ao root annulus (test 2.5 cm code = 2419627002) LA size (test code = 3.7 cm 4399772507) ACS (test code = 1.94 cm 2979800589) PV PEAK VELOCITY (test 95.9 cm/s code = 2465561158) PV peak gradient (test 3.7 mmHg code = 3128406604) MV E-F slope (test code 61.70 cm/s = 2355067245) MV Peak E Coni (test code 113.2 cm/s = 3614506059) MV Peak A Coni (test code 114.2 cm/s = 0395213230) E/A ratio (test code = 0.99 ratio 6133237230) MV valve area p 1/2 4.90 cm2 method (test code = 8535170414) MV dec slope (test code 737.20 cm/s2 = 2296382085) MV P1/2t max coni (test 113.20 cm/s code = 9930746371) LVOT stroke volume (test 94.80 cm3 code = 6600040049) LVOT peak coni (test code 112.1 cm/s = 7363755448) LVOT mn grad (test code 2.5 mmHg = 8680615523) AV LVOT peak gradient 5.0 mmHg (test code = 0685432786) LVOT peak VTI (test code 23.1 cm = 1180150126) LV V1 mean (test code = 72.90 cm/s 3745312153) Aortic valve mean 127.4 cm/s velocity (test code = 9365016629) Ao peak coni (test code = 208.5 cm/s 9311863377) Ao VTI (test code = 43.5 cm 3743949559) AV area by cont VTI 2.2 cm2 (test code = 1253240266) AV area peak coni (test 2.2 cm2 code = 9782461217) Ao max PG (test code = 17.40 mm[Hg] 0419636710) AV peak gradient (test 17.4 mmHg code = 7091186705) AV valve area (test code 2.18 cm2 = 7384700582) AV mean gradient (test 7.7 mmHg code = 3581162597) TR Peak Coni (test code = 248.6 cm/s 4745232585) Triscuspid Valve 24.7 mmHg Regurgitation Peak Gradient (test code = 4413022662) LVIDD (test code = 5.00 cm 9556922991) Left Ventricular End 116.3 mL Diastolic Volume by Teichholz Method (test code = 3445615) IVS (test code = 1.27 cm 5899166462) Interventricular Septum 1.27 cm Diastolic Thickness by 2D (test code = 4601424) LVPWD (test code = 1.24 cm 5521013934) PW (test code = 1.24 cm 0.6-1.1 6314427755) EF(Teich) (test code = 61.10 % 5111634836) LVIDS (test code = 3.30 cm 9609802071) Left Ventricular End 45.2 mL Systolic Volume by Teichholz Method (test code = 1241878) FS (test code = 33 % 0614337779) EF - 2D (test code = 61.10 % 53311125) Radiology Study observation (narrative) (test code = 31623-4) MADELINE (test code = MADELINE) ?Left?Ventricle: Left ventricle size is normal. Mildly increased wall thickness. Normal wall motion. Normal systolic function with a visually estimated EF of 55 - 60%. There is impaired relaxation. Normal left ventricular filling pressure. ?Tricuspid?Valve: Trace transvalvular regurgitation. Insufficient tricuspid regurgitation jet to estimate RVSP . ?RA pressure is 0-5 mmHg. Left VentricleLeft ventricle size is normal. Mildly increased wall thickness. Normal wall motion. Normal systolic function with a visually estimated EF of 55 - 60%. There is impaired relaxation. Normal left ventricular filling pressure.Right VentricleNot well visualized.Left AtriumLeft atrium size is normal.Right AtriumRight atrium size is normal.IVC/SVCRA pressure is 0-5 mmHg.Mitral ValveMitral valve structure is grossly normal. Trace transvalvular regurgitation.Tricusp id ValveTricuspid valve structure is grossly normal. Trace transvalvular regurgitation. Insufficient tricuspid regurgitation jet to estimate RVSP . RA pressure is 0-5 mmHg.Aortic ValveAortic valve opens well.Pulmonic ValveNot well visualized.Ascending AortaNormal sized aortic root.PericardiumNo pericardial effusion.Study DetailsStudy quality experienced technical difficulty. A complete echocardiogram was performed using 2D, color flow Doppler and spectral Doppler. 5 mL of Lumason ultrasound enhancing agent used. [facility]2023-07-15 13:09:06 Test Item Value Reference Range Interpretation Comments POCT GLU (test code = 6683470462) 212 mg/dL 70-110 H Lab Interpretation (test code = Abnormal 38357-1) [facility] [id number] 09:27:33 Test Item Value Reference Range Interpretation Comments TROPONIN I (test code = 0.029 ng/mL <=0.034 [id number]) MADELINE (test code = MADELINE) Reference (Normal) Range (defined by the 99th percentile reference limit): <= 0.034 ng/mL Note: Cardiac troponin begins to rise 3-4 hours after the onset of ischemia. Repeat in 4-6 hours if the sample was drawn within 3-4 hours of the onset of the symptom and found normal. Diagnosis of myocardial injury is made with acute changes in cTn concentrations with at least one serial sample above the 99th percentile upper reference limit (URL), taken together with the patient's clinical presentation. Biotin has been reported to cause a negative bias, interpret results relative to patient's use of biotin. Lab Interpretation Normal (test code = 86192-2) [facility] [id number] 09:25:33 Test Item Value Reference Range Interpretation Comments NT-proBNP (test code = 77902-7) 86 pg/mL <=125 Lab Interpretation (test code = Normal 50368-7) [facility] 09:15:54 Test Item Value Reference Range Interpretation Comments MAGNESIUM (test code = 2205505057) 2.0 mg/dL 1.7-2.4 Lab Interpretation (test code = Normal 27380-5) [facility] (62161)2023-07-15 09:15:34 Test Item Value Reference Range Interpretation Comments NA (test code = 141 mmol/L 135-145 [id number]) K (test code = 4.0 mmol/L 3.5-5.0 9847974729) CL (test code = 102 mmol/L 98-108 9711610432) CO2 TOTAL (test code = 27 mmol/L 23-31 6365522862) AGAP (test code = 12 2-16 [id number]) BUN (test code = 20 mg/dL 7-23 2911303148) GLUCOSE (test code = 226 mg/dL 70-110 H [id number]) CREATININE (test code = 0.83 mg/dL 0.50-1.04 0586985846) TOTAL BILI (test code = 0.6 mg/dL 0.1-1.6 6954683256) CALCIUM (test code = 9.0 mg/dL 8.6-10.6 5954872036) T PROTEIN (test code = 8.0 g/dL 6.3-8.2 4948547402) ALBUMIN (test code = 3.9 g/dL 3.5-5.0 2702251941) ALK PHOS (test code = 89 U/L 34-122 2337183866) ALTv (test code = 19 U/L 5-35 1742-6) AST(SGOT) (test code = 22 U/L 13-40 1240267180) eGFR (test code = 72.5 mL/min/1.73m2 4440722387) MADELINE (test code = MADELINE) Association of Glomerular Filtration Rate (GFR) and Staging of Kidney Disease* + --+ --+ ------+| GFR (mL/min/1.73 m2) ?| With Kidney Damage ?| ?Without Kidney Damage+ --------+ --------+ +| ?>90 ?| ?Stage one ?| ? Normal ?+ ---+ ---+ -------+| ?60-89 ?| ?Stage two ?| ? Decreased GFR ? + --+ --+ ------+| ?30-59 ?| ?Stage three ?| ? Stage three ? + --+ --+ ------+| ?15-29 ?| ?Stage four ? | ? Stage four ?+ ---+ ---+ -------+| ?<15 (or dialysis) ? ?| ?Stage five ? | ? Stage five ?+ ---+ ---+ -------+ *Each stage assumes the associated GFR level has been in effect for at least three months. ?Stages 1 to 5, with or without kidney disease, indicate chronic kidney disease. Notes: Determination of stages one and two (with eGFR >59mL/min/1.73 m2) requires estimation of kidney damage for at least three months as defined by structural or functional abnormalities of the kidney, manifested by either:Pathological abnormalities or Markers of kidney damage (including abnormalities in the composition of the blood or urine or abnormalities in imaging tests). Lab Interpretation Abnormal (test code = 27037-9) [facility] Test Item Value Reference Range Interpretation Comments LIPASE (test code = 6049905443) 204 U/L 0-220 Lab Interpretation (test code = Normal 80846-1) [facility] [id number] 08:56:49 Test Item Value Reference Range Interpretation Comments WBC (test code = 8.89 See_Comment [Automated 4175-2) message] The sy stem which generated this result transmitted reference range : 4.30 - 11.10 10*3/?L. The reference range was not used to interpret this result as normal/abnormal . RBC (test code = 4.70 See_Comment [Automated 541-8) message] The sy stem which generated this result transmitted reference range : 3.93 - 5.25 10*6/?L. The reference range was not used to interpret this result as normal/abnormal . HGB (test code = 12.1 g/dL 11.6-15.0 718-7) HCT (test code = 39.5 % 35.7-45.2 4544-3) MCV (test code = 84.0 fL 80.6-95.5 787-2) MCH (test code = 25.7 pg 25.9-32.8 L 785-6) MCHC (test code = 30.6 g/dL 31.6-35.1 L 786-4) RDW-SD (test code = 43.8 fL 39.0-49.9 76884-2) RDW-CV (test code = 14.4 % 12.0-15.5 788-0) PLT (test code = 338 See_Comment [Automated 777-3) message] The sy stem which generated this result transmitted reference range : 166 - 358 10*3/ ?L. The reference r abdon was not used to interpret this result as normal/abnormal . MPV (test code = 9.9 fL 9.5-12.9 09224-4) NRBC/100 WBC (test 0.0 See_Comment [Automat ed code = 4862758408) message] The system which generated this result transmitted reference range : 0.0 - 10.0 /100 WBCs. The refer ence range was not u sed to interpret th is result as normal/abnormal . NRBC x10^3 (test code See_Comment [Auto mated = 6091087828) message] The s ystem which generated this result transmitted reference range : 10*3/?L. The reference range was not used to interpret this result as normal/abnormal . GRAN MAT (NEUT) % 43.5 % (test code = 770-8) IMM GRAN % (test code 0.10 % = 5678052552) LYMPH % (test code = 44.9 % 736-9) MONO % (test code = 9.1 % 5905-5) EOS % (test code = 2.1 % 713-8) BASO % (test code = 0.3 % 706-2) GRAN MAT x10^3(ANC) 3.86 10*3/uL 1.88-7.09 (test code = 9210601251) IMM GRAN x10^3 (test 0.00-0.06 code = 3811311878) LYMPH x10^3 (test code 3.99 10*3/uL 1.32-3.29 H = 731-0) MONO x10^3 (test code 0.81 10*3/uL 0.33-0.92 = 742-7) EOS x10^3 (test code = 0.19 10*3/uL 0.03-0.39 711-2) BASO x10^3 (test code 0.03 10*3/uL 0.01-0.07 = 704-7) Lab Interpretation Abnormal (test code = 25816-8) [facility] glycosylated hemoglobin (Hb A1C)2023-06-07 16:31:50 Test Item Value Reference Range Interpretation Comments POC Hemoglobin A1C (test code = 7.4 % 2116072) [facility] SPE[facility]IFIC [id number] 22:34:00 Test Item Value Reference Range Interpretation Comments POCT U SP GRAV (test code = 1.020 mg/dl 1.005-1.025 3255) POCT PH U (test code = 3254) 5 mg/dl 5-8 POCT U LEUK EST (test code = neg Negative - Negative 3263) POCT U NIT (test code = 3262) neg Negative - Negative POCT U PROT (test code = 100 Negative - Negative 3259) POCT U GLU (test code = 3256) neg Negative - Negative POCT U KETONE (test code = neg Negative - Negative 3258) POCT U UROBILI (test code = neg 0.2-1 3260) POCT U BILI (test code = neg Negative - Negative 3261) POCT U BLD (test code = 3257) trace Negative - Negative POCT U COLOR (test code = yellow 3266) POCT U APPEAR (test code = cloudy 3267) Lab Interpretation (test code Abnormal = 11396-4) [facility] MOLECULAR [id number] 22:23:46 Test Item Value Reference Range Interpretation Comments POCT Molecular Strep (test code = Negative Negative 78174-5) Lab Interpretation (test code = Normal 63432-8) [facility] SARS-COV-2 ANTIGEN (BINAX NOW)2023-05-21 22:21:00 Test Item Value Reference Range Interpretation Comments POCT SARS-COV-2 ANTIGEN (test code = Positive Not Detected 09302-9) On board controls acceptable with C Yes Line (test code = 3574) Lab Interpretation (test code = Abnormal 57808-5) [facility] 12 [id number] 15:44:34 Test Item Value Reference Range Interpretation Comments Ventricular rate (test 82 code = 253) Atrial rate (test code = 82 255) VT interval (test code = 148 266) QRSD interval (test code 82 = 260) QT interval (test code = 380 264) QTC interval (test code 443 = 265) P axis 1 (test code = 59 267) QRS axis 1 (test code = 24 268) T wave axis (test code = 20 270) EKG impression (test Normal sinus code = 273) rhythm-Normal ECG-No previous ECGs available-Electronica lly Signed By Fer Jasso MD ([id number]) on 04/06/2023 10:44:32 AM [facility] URINALYSIS W SPECIFIC [id number] 22:00:00 Test Item Value Reference Range Interpretation Comments POCT U SP GRAV (test 1.015 mg/dl 1.005-1.025 code = 3255) POCT PH U (test code = 5 mg/dl 5-8 3254) POCT U LEUK EST (test ++ Negative - code = 3263) Negative POCT U NIT (test code neg Negative - = 3262) Negative POCT U PROT (test code + 30 Negative - = 3259) Negative POCT U GLU (test code normal Negative - = 3256) Negative POCT U KETONE (test neg Negative - code = 3258) Negative POCT U UROBILI (test normal 0.2-1 code = 3260) POCT U BILI (test code neg Negative - = 3261) Negative POCT U BLD (test code about 50 Negative - = 3257) Negative POCT U COLOR (test yellow code = 3266) POCT U APPEAR (test clear code = 3267) MADELINE (test code = MADELINE) accurate development and interpretation of all internal controls Lab Interpretation Normal (test code = 09291-9) [facility] URINALYSIS W SPECIFIC [id number] 22:00:00 Test Item Value Reference Range Interpretation Comments POCT U SP GRAV (test 1.015 mg/dl 1.005-1.025 code = 3255) POCT PH U (test code = 5 mg/dl 5-8 3254) POCT U LEUK EST (test ++ Negative - code = 3263) Negative POCT U NIT (test code neg Negative - = 3262) Negative POCT U PROT (test code + 30 Negative - = 3259) Negative POCT U GLU (test code normal Negative - = 3256) Negative POCT U KETONE (test neg Negative - code = 3258) Negative POCT U UROBILI (test normal 0.2-1 code = 3260) POCT U BILI (test code neg Negative - = 3261) Negative POCT U BLD (test code about 50 Negative - = 3257) Negative POCT U COLOR (test yellow code = 3266) POCT U APPEAR (test clear code = 3267) MADELINE (test code = MADELINE) accurate development and interpretation of all internal controls Lab Interpretation Normal (test code = 67866-0) [facility] 11:31:00 Test Item Value Reference Range Interpretation Comments GLUBED (test code = GLUBED) 287 mg/dL 60-125 H BASIC METABOLIC [id number] 07:13:00 Test Item Value Reference Range Interpretation [...] RATE (test code = GFR) mL/mi n/1.73 c2Ljpqwyrsj Range:Healthy Adults >90 mL/min/1.73 m2 For Chronic Kidney Disease: Stage II Mild Decrease i n GFR 60-90 Stage III Moderate Decrea se in GFR 30-59 St age IV Severe Decr ease in GFR 15-29 St age V Kidney Failur e <15 CREATININE (test code 1.06 mg/dL 0.55-1.30 N = CREAT) CALCIUM (test code = 7.7 mg/dL 8.2-10.1 L CA) SPECIMEN COMMENT: POD #1HGB [id number] 06:05:00 Test Item Value Reference Range Interpretation Comments HEMOGLOBIN (test code = HGB) 9.7 g/dL 12-16 L HEMATOCRIT (test code = HCT) 31.5 % 37-47 L SPECIMEN COMMENT: POD #[id number] 05:47:00 Test Item Value Reference Range Interpretation Comments GLUBED (test code = GLUBED) 210 mg/dL 60-125 H [id number] 20:24:00 Test Item Value Reference Range Interpretation Comments GLUBED (test code = GLUBED) 236 mg/dL 60-125 H [id number] 17:47:00 Test Item Value Reference Range Interpretation Comments GLUBED (test code = GLUBED) 165 mg/dL 60-125 H - XR PELVIS 1/2 [id number] 16:42:[address] [facility] : 1970 Sex: F Patient Name: KATERYNA ABARCA Unit No: [id number] EXAMS: CPT CODE: [id number] XR PELVIS 1/2 VIEWS 74622 INTRAOPERATIVE LEG LENGTH FILM COMMENT: COMPARISON: No prior exams available. In progress right hip replacement is noted. AP portable right hip COMMENT: The patient is status post joint replacement which is articulating normally. at 1642 Reported and signed by: Mario Samaniego MD CC: Papi Arias II, MD Technologist: PANCHO BENITEZ (RT.R) Transcribed D/ (1642) tMAYELINL [facility] NAME: KATERYNA ABARCA [address] [facility] PHYS: Papi Norton II, MD : 1970 AGE: 51 SEX: F [place], [place] [address] LOC: Y.O25 A PHONE #: [phone] EXAM DATE: 11/10/2021 STATUS:ADM IN FAX #: [phone] RAD #: D/C DT PAGE 1 Signed Report Patient Name: KATERYNA ABARCA UnitNo: [id number] EXAMS: CPT CODE: [id number] XR PELVIS 1/2 VIEWS 69076 <Continued> Orig Print D/T: S: 11/10/2021 (1645) [facility] NAME: KATERYNA ABARCA [address] [facility] PHYS: Papi Norton II, MD : 1970 AGE: 51 SEX: F [place] [address] : Y.O25 A PHONE #: [phone] EXAM DATE: 11/10/2021 STATUS: ADM IN FAX #: [phone] RAD #: D/C DT PAGE 2 Signed Report- XR PELVIS 1/2 [id number] 16:42:[address] [facility] : 1970 Sex: F Patient Name: KATERYNA ABARCA Unit No: [id number] EXAMS: CPT CODE: [id number] XR PELVIS 1/2 VIEWS 22939 INTRAOPERATIVE LEG LENGTH FILM COMMENT: COMPARISON: No prior exams available. In progress right hip replacement is noted. AP portable right hip COMMENT: The patient is status post joint replacement which is articulating normally. at 1642 Reported and signed by: Mario Samaniego MD CC: Papi Arias II, MD Technologist: PANCHO BENITEZ (RT.R) Transcribed D/ (1641) Gord[facility] NAME: KATERYNA ABARCA [address] [facility] PHYS: Papi Norton II, MD : 1970 AGE: 51 SEX: F [place] [address] LOC: Y.O25 A PHONE #: [phone] EXAM DATE: 11/10/2021 STATUS: ADM IN FAX #: [phone] RAD #: D/C DT PAGE 1 Signed Report Patient Name: KATERYNA ABARCA Unit No: [id number] EXAMS: CPT CODE: [id number] XR PELVIS 1/2 VIEWS 10697 <Continued> Orig Print D/T:S: 11/10/2021 (1646) [facility] NAME: KATERYNA ABARCA [address] [facility] PHYS: Papi Mejia II, MD : 1970 AGE: 51 SEX: F [place], [place] [address] LOC: Y.O25 A PHONE #: [phone] EXAM DATE: 11/10/2021 STATUS: ADM IN FAX #: [phone] RAD #: D/C DT PAGE 2 Signed ReportGLUBED 2021-11-10 09:41:00 Test Item Value Reference Range Interpretation Comments GLUBED (test code = GLUBED) 228 mg/dL 60-125 H [id number] 08:13:00 Test Item Value Reference Range Interpretation Comments [id number] Negative Negative The test was performed (test code = at: [facility]: 04/21Note: JAPIO34Dwcqrkyl) this entry is for TRACKING purpos es only and the testwas done outside [facility], the perfroming entitiy isfound in spec imen comments. The test was performed at: [facility]: 11/07/21Patient's account number from transferring facility: [id number] patient's current lab results are: Negative GLYCOSYLATED [...] GBA1c resultsregardle ss of the method used. HG BA1c results from patientswi th HbSS, HbCC, and HbSc must be interpreted wit h cautiongiven th e pathological pr ocesses, including anemi a,increased red cell turnov er, transfusion req uirements, thatadversely i mpact HGBA1c as a marker of long-term glycemiccontrol . Alternative for ms of testing such as fructosaminesho uld be considered for these patients.DONE A T: [facility] [address] [facility], [place], [place] [address] GLYCOSYLATED HEMOGLOBIN (HA1C)2021-10-25 18:18:00 Test Item Value [...] be considered for these patients. COMPREHENSIVE METABOLIC [id number] 13:13:00 Test Item Value Reference Range Interpretation [...] RATE (test code = GFR) mL/mi n/1.73 y4Xkbllnvox Range:Healthy Adults >90 mL/min/1.73 m2 For Chronic Kidney Disease: Stage II Mild Decrease i n GFR 60-90 Stage III Moderate Decrea se in GFR 30-59 St age IV Severe Decre ase in GFR 15-29 St age V Kidney Failur e <15 CREATININE (test code 0.84 mg/dL 0.55-1.30 [...] TOTAL (test code = ALKP) CBC W/AUTO [id number] 12:30:00 Test Item Value Reference Range Interpretation [...] N code = NRBC) - XR L-SPINE 4+WTNGH9609-11-55 02:35:00 Name: KATERYNA ABARCA [facility] : 1970 Age/S: 48 / F [address] [place] Unit #: [id number] Loc: [place] [address] Phys: Katie Guerrero MD Acct: [id number] Dis Date: Status: REG ER PHONE #: [phone] Exam Date: 07/05/2019 0215 FAX #: Reason: hip pain EXAMS: CPT: [id number] XR L-SPINE 4+VIEWS 21083 Fluoro Time: DAP (Gy m2): Air Kerma [...] MD PAGE 1 Signed Report Name: KATERYNA ABARCA [facility] : 1970 Age/S:48 / F [address] [place] Unit #: [id number] Loc: [place] [address] Phys: Katie Guerrero MD Acct: [id number] Dis Date: Status: REG ER PHONE #: [phone] Exam Date: 07/05/2019 0215 FAX #: Reason:hip pain EXAMS: CPT: [id number] XR L-SPINE 4+VIEWS 32148 Fluoro Time: DAP (Gy m2): Air Kerma (mGy): (Continued) Technologist: RT Ace(R) [facility] Date/Time: 07/05/2019 (023) [id number] Orig Print D/T: S: 07/05/2019 (0238) PAGE 2 Signed Report- XR HIP BI [id number] 02:33:00 Name: KATERYNA ABARCA [facility] : 1970 Age/S: 48 / F [address] [address] [place] Unit #: [id number] Loc: [place] [address] Phys: Katie Guerrero MD Acct: [id number] Dis Date: Status: REG ERPHONE #: [phone] Exam Date: 07/05/2019 0200 FAX #: Reason: hip pain EXAMS: CPT: [id number] XR HIP BI W/PELVIS 03983 Fluoro Time: DAP (Gy m2): Air Kerma [...] Reported and signed by: Kian Stout M.D. CC : Katie Guerrero MD PAGE 1 Signed Report Name: KATERYNA ABARCA [facility] : 1970 Age/S: 48 / F [address] [place] Unit #: [id number] Loc: [place] [address] Phys: Katie Guerrero MD Acct:[id number] Dis Date: Status: REG ER PHONE #: [phone] Exam Date: 07/05/2019 0200 FAX #: Reason: hip pain EXAMS: CPT: [id number] XR HIP BI W/PELVIS 50220 Fluoro Time: DAP (Gy m2): Air Kerma (mGy):(Continued) Technologist: RT Ace(R) [facility] Date/Time: 07/05/2019 (0233) [id number] Orig Print D/T: S: 07/05/2019 (0236) PAGE 2 Signed Report"
[2023-08-02 23:41] LABS: Absolute Lymphocytes (CBC) 1.9 K/uL (0.7-4.9); Hematocrit 33.9 % (36.0-45.0); Lymphocytes % 11.8 % (15.3-44.8); MPV 7.6 fL (7.6-11.3); Platelets 379 thou/uL (152-406); RBC Red Blood Cell Count 4.23 M/uL (3.86-4.86)
[2023-08-02 23:44] LABS: Protime INR 1.26
[2023-08-02] MEDS ORDERED: CEFTRIAXONE 1000 MG/VIAL ONE (23:59)
[2023-08-02] MEDS ORDERED: ACETAMINOPHEN 500 MG TAB ONE (23:59)
[2023-08-03] MEDS ORDERED: LEVALBUTEROL 1.25 MG/3 ML NEB ONE
[2023-08-03] MEDS ORDERED: NA CHLORIDE 0.9% 2,000 ML ONE
[2023-08-03] MEDS ORDERED: NA CHLORIDE 0.9% 250 ML ONE
[2023-08-03] MEDS ORDERED: AZITHROMYCIN 500 MG INJ IVPB ONE
[2023-08-03] MEDS ORDERED: IPRATROPIUM BROM 0.5MG/2.5ML ONE
[2023-08-03 00:02] LABS: Albumin 2.7 g/dL (3.4-5.0); Bilirubin Direct 0.2 mg/dL (0-0.2); Bilirubin Indirect, Calculated 0.7 mg/dL (0.2-0.8); Bilirubin Total 0.9 mg/dL (0.2-1.0); Magnesium 1.6 mg/dL (1.6-2.4); Potassium 3.8 mEq/L (3.5-5.1); Protein, Total 7.6 g/dL (6.4-8.2)
[2023-08-03 00:04] LABS: Troponin High Sensitivity 84.6 pg/mL (<58.9)
--- NOTE | 2023-08-03 00:29 | ER ---
Nurse's Notes [facility] Name: Puja Abarca Age: 52 yrs Sex: Female : 1970 Arrival Date: 08/02/2023 Time: 22:52 Bed 6 Private MD: Diagnosis: Fever, unspecified;Chest pain, unspecified;Chest pain on breathing;Obesity, unspecified;Non ST elevation [place];Type 2 diabetes mellitus with hyperglycemia;Influenza due to other identified influenza virus with other respiratory manifestations-INFLUENZA B Presentation: 08/02 23:03 Chief complaint: Patient states: have a lot of chest tightness and chest pain when I vc1 take a deep breath. I also feel short of breath. I could barely walk in here without feeling short of breath or that my heart was racing. Coronavirus screen: Vaccine status: Patient reports being unvaccinated. Client denies travel out of the [place] in the last 14 days. chills, congestion, cough unrelated to allergies, fatigue, fever, headache, Client presents with at least one sign or symptom that may indicate coronavirus-19. Standard/surgical mask placed on the client. Provider contacted for isolation considerations. Ebola Screen: Patient negative for fever greater than or equal to 101.5 degrees Fahrenheit, and additional compatible Ebola Virus Disease symptoms Patient denies exposure to infectious person. Patient denies travel to an Ebola-affected area in the 21 days before illness onset. No symptoms or risks identified at this time. Initial Sepsis Screen: Does the patient meet any 2 criteria? Temp <36.0*C (96.8*F)) or > 38.3*C (100.9*F). HR > 90 bpm. Yes Does the patient have a suspected source of infection? Yes: Productive cough/pneumonia. Risk Assessment: Do you want to hurt yourself or someone else? Patient reports no desire to harm self or others. Onset of symptoms is unknown. Care prior to arrival: Medication(s) given: robitussin and tylenol cold 3-4 hours ago. 23:03 Method Of Arrival: Ambulatory vc1 23:03 Acuity: JAYME 2 as6 Triage Assessment: 23:07 General: Appears in no apparent distress. uncomfortable, ill, Behavior is cooperative, vc1 appropriate for age. Pain: Complains of pain in chest and head Pain does not radiate. Pain currently is 9 out of 10 on a pain scale. Quality of pain is described as sharp, Aggravated by coughing. EENT: Nares with drainage noted Reports nasal congestion nasal discharge. Neuro: Level of Consciousness is awake, alert, obeys commands, Oriented to person, place, time, situation, Appropriate for age. Neuro: Reports headache. Cardiovascular: Reports chest pain, shortness of breath. Respiratory: Airway is patent Respiratory effort is even, unlabored, Respiratory pattern is regular, symmetrical. Respiratory: Reports shortness of breath at rest cough that is productive, labored breathing pain with cough. GI: No deficits noted. : No deficits noted. Derm: No deficits noted. Musculoskeletal: No deficits noted. 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 LMP N/A - Post-menopause, Not vc1 Historical: - Allergies: 23:07 No Known Allergies; vc1 - Home Meds: 08/03 01:25 atorvastatin 20 mg Oral tab 1 tab once daily [Active]; Docusate Sodium Oral [Active]; la4 Eliquis 5 mg Oral tab 1 tab 2 times per day [Active]; gabapentin 300 mg Oral tab twice a day [Active]; glimepiride 4 mg Oral tab 1 tab once daily [Active]; hydrocodone-acetaminophen 10-325 mg Oral tab [Active]; lisinopril 20 mg Oral tab 1 tab once daily [Active]; metformin 750 mg Oral Tb24 twice a day [Active]; minocycline 100 mg Oral tab 1 tab every 12 hours [Active]; ondansetron HCl 4 mg Oral tab [Active]; - PMHx: 08/02 23:07 Diabetes - NIDDM; DVT; High Cholesterol; Hypertension; vc1 - PSHx: 23:07 right hip replacement (Hypertension); vc1 - Immunization history:: Client reports having NOT received the Covid vaccine. - Social history:: Smoking status: Patient denies any tobacco usage or history of. Screenin:15 Abuse screen: Denies threats or abuse. Nutritional screening: No deficits noted. vc1 Tuberculosis screening: No symptoms or risk factors identified. 08/03 01:24 [facility] ED Fall Risk Assessment (Adult) History of falling in the last 3 months, la4 including since admission No falls in past 3 months (0 pts) Confusion or Disorientation No (0 pts) Intoxicated or Sedated No (0 pts) Impaired Gait No (0 pts) Mobility Assist Device Used No (0 pt) Altered Elimination No (0 pt) Score/Fall Risk Level 0 - 2 = Low Risk Oriented to surroundings, Maintained a safe environment, Provided non-skid footwear. Assessment: 08/02 23:15 Pain: Pain began couple of weeks. vc1 08/03 00:15 Reassessment: Patient appears in no apparent distress at this time. Patient and/or jb4 family updated on plan of care and expected duration. Pain level reassessed. Patient is alert, oriented x 3, equal unlabored respirations, skin warm/dry/pink. 01:30 General: Returned to ED w/o completion of exam due to IV infiltration that occurred la4 while pushing medication for exam. IV discontinued and heat pack applied to right forearm. Left hand 22g PIV remains in place and patent w/ iv fluids and antibiotics infusing w/o difficulty. 01:45 Reassessment: Patient appears in no apparent distress at this time. Patient and/or jb4 family updated on plan of care and expected duration. Pain level reassessed. Patient is alert, oriented x 3, equal unlabored respirations, skin warm/dry/pink. Vital Signs: 08/02 23:03 BP 172 / 75; Pulse 128; Resp 21; Temp 101.3; Pulse Ox 93% ; Weight 140.16 kg; Height 5 vc1 ft. 3 in. ; Pain 9/10; 08/03 00:19 BP 147 / 53; Pulse 124; Resp 25; Pulse Ox 94% on R/A; jb4 00:52 BP 142 / 56; Pulse 130; Resp 18; Pulse Ox 92% on R/A; la4 01:15 BP 114 / 72; Pulse 113 MON; la4 01:45 Temp 98.1(O); jb4 08/02 23:03 Body Mass Index 54.74 (140.16 kg, 160.02 cm) vc1 08/02 23:03 Pain Scale: Adult vc1 Vitals: 01:15 Cardiac Rhythm Assessment Regular Sinus rhythm. la4 Jeannette Coma Score: 01:15 Eye Response: spontaneous(4). Motor Response: obeys commands(6). Verbal Response: la4 oriented(5). Total: 15. ED Course: 08/02 22:55 Patient arrived in ED. gm2 23:06 Triage completed. vc1 23:07 Jaime Ashley MD is Attending Physician. rodriguez 23:07 Arm band placed on right wrist. vc1 23:50 Chest Single View In Process Unspecified. EDMS 08/03 00:26 Anish Rodriguez is Hospitalizing Provider. rodriguez 01:22 Inserted saline lock: 20 gauge in right wrist, using aseptic technique. Missed la4 attempt(s): 20 gauge in right wrist. Patient maintains SpO2 saturation greater than 95% on room air. 01:23 Inserted saline lock: 22 gauge in left hand, using aseptic technique. ,using aseptic la4 technique. placed by Hossein ROBERTO. 01:24 Patient has correct armband on for positive identification. Bed in low position. Call la4 light in reach. Side rails up X2. Provided Education on: plan of care. Client placed on continuous cardiac and pulse oximetry monitoring. NIBP monitoring applied. 01:24 No provider procedures requiring assistance completed. la4 01:25 Patient admitted, IV remains in place. la4 Administered Medications: 08/02 23:51 Drug: Ipratropium Inhalation Aerosol 0.5 mg Inhalation once Route: Inhalation; jb4 23:52 Drug: Acetaminophen PO 1000 mg PO once Route: PO; jb4 23:52 Drug: Levalbuterol Inhalation 2.5 mg Inhalation once Route: Inhalation; jb4 08/03 00:18 Drug: NS 0.9% IV 1000 ml IV at 1 bolus Per protocol; 1000 mL bolus Route: IV; Rate: 1 jb4 bolus; Site: left hand; 02:28 Follow up: IV Status: Infusion continued upon admission jb4 00:18 Drug: Rocephin IV 1 grams IV at per protocol once; Given slow IV push per pharmacy jb4 instructions Route: IV; Rate: per protocol; Site: left hand; 00:19 Drug: NS 0.9% IV 1000 ml IV at 1 bolus Per protocol; 1000 mL bolus Route: IV; Rate: 1 jb4 bolus; Site: left hand; 02:28 Follow up: IV Status: Infusion continued upon admission jb4 00:19 Drug: Zithromax IVPB 500 mg IVPB once over 1 hrs; mix in 250 mL NS Route: IVPB; Infused jb4 Over: 1 hrs; Site: left hand; 01:47 Drug: Oseltamivir PO 75 mg PO once Route: PO; as6 Medication: 01:24 VIS not applicable for this client. la4 Outcome: 00:29 Decision to Hospitalize by Provider. rodriguez 01:25 Condition: stable la4 02:16 Admitted to Med/surg accompanied by tech, via wheelchair, Other IV fluids infusing la4 02:16 Instructed on the need for admit, 02:17 Patient left the ED. la4 Signatures: Dispatcher [employer] EDAZ Jaime Ashley MD MD cha Bryson, James, RN RN jb4 Clay Fischer RN RN as6 Bethanie Chávez RN RN vc1 Chastity Bell [facility] Andrew Mueller RN RN la4 Corrections: (The following items were deleted from the chart) 08/02 23:10 23:03 Acuity: JAYME 3 vc1 as6
--- NOTE | 2023-08-03 00:29 | EDPHYS ---
Physician Documentation [facility] Name: Puja Abarca Age: 52 yrs Sex: Female : 1970 Arrival Date: 08/02/2023 Time: 22:52 Bed 6 Private MD: ED Physician Jaime Ashley HPI: 08/02 23:36 This 52 yrs old Black Female presents to ER via Ambulatory with complaints of Chest rodriguez Pain. 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 LMP N/A - Post-menopause, Not vc1 Historical: - Allergies: 23:07 No Known Allergies; vc1 - Home Meds: 08/03 01:25 atorvastatin 20 mg Oral tab 1 tab once daily [Active]; Docusate Sodium Oral [Active]; la4 Eliquis 5 mg Oral tab 1 tab 2 times per day [Active]; gabapentin 300 mg Oral tab twice a day [Active]; glimepiride 4 mg Oral tab 1 tab once daily [Active]; hydrocodone-acetaminophen 10-325 mg Oral tab [Active]; lisinopril 20 mg Oral tab 1 tab once daily [Active]; metformin 750 mg Oral Tb24 twice a day [Active]; minocycline 100 mg Oral tab 1 tab every 12 hours [Active]; ondansetron HCl 4 mg Oral tab [Active]; - PMHx: 08/02 23:07 Diabetes - NIDDM; DVT; High Cholesterol; Hypertension; vc1 - PSHx: 23:07 right hip replacement (Hypertension); vc1 - Immunization history:: Client reports having NOT received the Covid vaccine. - Social history:: Smoking status: Patient denies any tobacco usage or history of. ROS: 08/03 00:17 Eyes: Negative for injury, pain, redness, and discharge, ENT: Negative for injury, rodriguez pain, and discharge, Neck: Negative for injury, pain, and swelling, Cardiovascular: Negative for chest pain, palpitations, and edema, Abdomen/GI: Negative for abdominal pain, nausea, vomiting, diarrhea, and constipation, Back: Negative for injury and pain, : Negative for injury, bleeding, discharge, and swelling, MS/Extremity: Negative for injury and deformity, Skin: Negative for injury, rash, and discoloration, Neuro: Negative for headache, weakness, numbness, tingling, and seizure, Psych: Negative for depression, anxiety, suicide ideation, homicidal ideation, and hallucinations, Allergy/Immunology: Negative for hives, rash, and allergies, Endocrine: Negative for neck swelling, polydipsia, polyuria, polyphagia, and marked weight changes, Hematologic/Lymphatic: Negative for swollen nodes, abnormal bleeding, and unusual bruising, Constitutional: Positive for body aches, chills, fatigue, fever, malaise, Cardiovascular: Positive for chest pain, of the chest, Exam: 00:17 Constitutional: This is a well developed, well nourished patient who is awake, alert, rodriguez and in no acute distress. Head/Face: Normocephalic, atraumatic. Eyes: Pupils equal round and reactive to light, extra-ocular motions intact. Lids and lashes normal. Conjunctiva and sclera are non-icteric and not injected. Cornea within normal limits. Periorbital areas with no swelling, redness, or edema. ENT: Nares patent. No nasal discharge, no septal abnormalities noted. Tympanic membranes are normal and external auditory canals are clear. Oropharynx with no redness, swelling, or masses, exudates, or evidence of obstruction, uvula midline. Mucous membranes moist. Neck: Trachea midline, no thyromegaly or masses palpated, and no cervical lymphadenopathy. Supple, full range of motion without nuchal rigidity, or vertebral point tenderness. No Meningismus. Chest/axilla: Normal chest wall appearance and motion. Nontender with no deformity. No lesions are appreciated. Respiratory: Lungs have equal breath sounds bilaterally, clear to auscultation and percussion. No rales, rhonchi or wheezes noted. No increased work of breathing, no retractions or nasal flaring. Abdomen/GI: Soft, non-tender, with normal bowel sounds. No distension or tympany. No guarding or rebound. No evidence of tenderness throughout. Back: No spinal tenderness. No costovertebral tenderness. Full range of motion. Pelvic Exam: Normal external genitalia. Speculum exam with closed cervical os, no discharge or bleeding noted. Bimanual exam with normal adnexa, no adnexal or cervical motion tenderness. Normal uterus. Female : Normal external genitalia. Skin: Warm, dry with normal turgor. Normal color with no rashes, no lesions, and no evidence of cellulitis. MS/ Extremity: Pulses equal, no cyanosis. Neurovascular intact. Full, normal range of motion. Neuro: Awake and alert, GCS 15, oriented to person, place, time, and situation. Cranial nerves II-XII grossly intact. Motor strength 5/5 in all extremities. Sensory grossly intact. Cerebellar exam normal. Normal gait. 00:17 Cardiovascular: Rate: tachycardic, actual rate is 128 bpm, Rhythm: regular, Pulses: Pulses are 4+ in bilateral radial, brachial, femoral, popliteal, posterior tibial and and dorsalis pedis arteries.. Heart sounds: normal, normal S1and S2, no S3 or S4, no murmur, no rub, no gallop, Edema: is not appreciated, JVD: is not appreciated, 00:17 ECG was reviewed by the Attending Physician. Vital Signs: 08/02 23:03 BP 172 / 75; Pulse 128; Resp 21; Temp 101.3; Pulse Ox 93% ; Weight 140.16 kg; Height 5 vc1 ft. 3 in. ; Pain 9/10; 08/03 00:19 BP 147 / 53; Pulse 124; Resp 25; Pulse Ox 94% on R/A; jb4 00:52 BP 142 / 56; Pulse 130; Resp 18; Pulse Ox 92% on R/A; la4 01:15 BP 114 / 72; Pulse 113 MON; la4 01:45 Temp 98.1(O); jb4 08/02 23:03 Body Mass Index 54.74 (140.16 kg, 160.02 cm) vc1 08/02 23:03 Pain Scale: Adult vc1 Jeannette Coma Score: 01:15 Eye Response: spontaneous(4). Motor Response: obeys commands(6). Verbal Response: la4 oriented(5). Total: 15. MDM: 08/02 23:07 Patient medically screened. rodriguez 08/03 00:19 Differential diagnosis: abnormal EKG, acute myocardial infarction, acute pericarditis, rodriguez anxiety, chest wall pain, cholecystitis, Cholelithiasis costochondritis, esophagitis, herpes zoster, pancreatitis, pericarditis, pneumonia, pneumothorax, pulmonary embolus, stable angina, thoracic aortic disection, unstable angina. HEART Score: History: Slightly Suspicious (0), ECG: Non specific repolarization disturbance / LBTB / PM (1), Age: > 45 and < 65 years (1), Risk Factors: > or = 3 Risk factors for atherosclerotic disease (2), [Hypertension] [DM] [+ Family HX] [Obesity] Troponin: > 1 and < 3 x normal limit (1), Total Score = 4. The patient was given aspirin in the Emergency Department. IRIS Risk Score: 1 - Three or more CAD risk factors, 1- Known CAD, 1 - Recent [<24hrs] Severe Angina, TOTAL SCORE = 3. Data reviewed: vital signs, nurses notes, lab test result(s), EKG, radiologic studies, plain films. Consideration of Admission/Observation Patient was admitted/placed on observation. Escalation of care including admission/observation considered. I considered the following discharge prescriptions or medication management in the emergency department Medications were administered in the Emergency Department. See MAR. Test considered but Not performed: CT: no ct chest ro pe. Historians other than the Patient: Family Member: daughter. Care significantly affected by the following chronic conditions: Diabetes, Hypertension, Obesity, dvt, high cholesterol. Counseling: I had a detailed discussion with the patient and/or guardian regarding the historical points, exam findings, and any diagnostic results supporting the discharge/admit diagnosis, the presence of at least one elevated blood pressure reading (>120/80) during this emergency department visit, lab results, radiology results, the need for further work-up and treatment in the hospital. 08/02 23:09 Order name: Basic Metabolic Panel [facility] 08/02 23:09 Order name: CBC with Diff [facility] 08/02 23:09 Order name: LFT's [facility] 08/02 23:09 Order name: Magnesium [facility] 08/02 23:09 Order name: NT PRO-BNP [facility] 08/02 23:09 Order name: PT-INR [facility] 08/02 23:09 Order name: Troponin HS [facility] 08/02 23:09 Order name: Blood Culture Adult (2) [facility] 08/02 23:09 Order name: Lactate w/ 2H reflex if indic. [facility] 08/02 23:09 Order name: Urinalysis w/ reflexes [facility] 08/02 23:09 Order name: Flu [facility] 08/02 23:09 Order name: SARS RAPID [facility] 08/02 23:09 Order name: Strep [facility] 08/02 23:09 Order name: Lipase [facility] 08/02 23:39 Order name: Basic Metabolic Panel; Complete Time: 01:01 [facility]OK 08/02 23:39 Order name: Liver (Hepatic) Function; Complete Time: 01:01 EDMS 08/02 23:39 Order name: Troponin High Sensitivity; Complete Time: 01:01 EDMS 08/02 23:39 Order name: NT PRO-BNP; Complete Time: 01:01 EDMS 08/02 23:39 Order name: Magnesium; Complete Time: 01:01 EDMS 08/02 23:39 Order name: Lipase; Complete Time: 01:01 EDMS 08/02 23:39 Order name: CBC with Automated Diff; Complete Time: 01:01 EDMS 08/02 23:39 Order name: Protime (+INR); Complete Time: 01:01 EDMS 08/02 23:39 Order name: Blood Culture [facility] 08/02 23:39 Order name: Blood Culture [facility] 08/02 23:39 Order name: Group A Streptococcus Rapid Sc; Complete Time: 01:01 [facility]OK 08/03 00:09 Order name: Lactate w/ 2H reflex if indic.; Complete Time: 01:01 [facility]OK 08/03 00:10 Order name: SARS-COV-2 Antigen Rapid; Complete Time: 01:01 EDMS 08/03 00:10 Order name: Influenza Screen (A ; Complete Time: 01:01 EDMS 08/03 00:32 Order name: Throat Culture [facility] 08/03 00:46 Order name: CBC with Automated Diff [facility] 08/03 00:46 Order name: CBC with Automated Diff [facility] 08/03 00:46 Order name: Comprehensive Metabolic Panel [facility] 08/03 00:46 Order name: Comprehensive Metabolic Panel [facility] 08/03 00:46 Order name: Lipid Profile [facility] 08/03 00:46 Order name: Lipid Profile [facility] 08/03 00:46 Order name: Troponin High Sensitivity [facility] 08/03 00:46 Order name: Troponin High Sensitivity [facility] 08/03 00:46 Order name: Troponin High Sensitivity [facility] 08/03 00:46 Order name: Troponin High Sensitivity [facility] 08/03 00:47 Order name: D-Dimer; Complete Time: 01:01 [facility] 08/02 23:09 Order name: XRAY Chest (1 view) [facility] 08/02 23:28 Order name: Chest Single View [facility] 08/03 00:53 Order name: Chest For Pe Angio [facility] 08/02 23:09 Order name: EKG; Complete Time: 01:46 [facility] 08/02 23:09 Order name: Cardiac monitoring; Complete Time: : [facility] 08/02 23:09 Order name: EKG - Nurse/Tech; Complete Time: [facility] 08/02 23:09 Order name: IV Saline Lock; Complete Time: : [facility] 08/02 23:09 Order name: Labs collected and sent; Complete Time: : [facility] 08/02 23:09 Order name: O2 Per Protocol; Complete Time: [facility] 08/02 23:09 Order name: O2 Sat Monitoring; Complete Time: : [facility] EC:17 Rate is 121 beats/min. Rhythm is regular. QRS [place] is Normal. CA interval is normal. [facility] QRS interval is normal. QT interval is normal. No Q waves. T waves are Normal. No ST changes noted. Clinical impression: Sinus tachycardia. Interpreted by me. Reviewed by me. Administered Medications: 08/02 23:51 Drug: Ipratropium Inhalation Aerosol 0.5 mg Inhalation once Route: Inhalation; 4 23:52 Drug: Acetaminophen PO 1000 mg PO once Route: PO; jb4 23:52 Drug: Levalbuterol Inhalation 2.5 mg Inhalation once Route: Inhalation; jb4 08/03 00:18 Drug: NS 0.9% IV 1000 ml IV at 1 bolus Per protocol; 1000 mL bolus Route: IV; Rate: 1 jb4 bolus; Site: left hand; 02:28 Follow up: IV Status: Infusion continued upon admission jb4 00:18 Drug: Rocephin IV 1 grams IV at per protocol once; Given slow IV push per pharmacy jb4 instructions Route: IV; Rate: per protocol; Site: left hand; 00:19 Drug: NS 0.9% IV 1000 ml IV at 1 bolus Per protocol; 1000 mL bolus Route: IV; Rate: 1 jb4 bolus; Site: left hand; 02:28 Follow up: IV Status: Infusion continued upon admission jb4 00:19 Drug: Zithromax IVPB 500 mg IVPB once over 1 hrs; mix in 250 mL NS Route: IVPB; Infused jb4 Over: 1 hrs; Site: left hand; 01:47 Drug: Oseltamivir PO 75 mg PO once Route: PO; as6 Disposition Summary: 08/03/23 00:29 Hospitalization Ordered Notes: Hospitalization Status: Inpatient Admission [facility] Provider: Anish Rodriguez cha Location: Telemetry/MedSurg (Inpatient) rodriguez Condition: Fair rodriguez Problem: new rodriguez Symptoms: have improved rodriguez Bed/Room Type: Standard [facility] Room Assignment: 418(08/03/23 00:57) mw Diagnosis - Fever, unspecified rodriguez - Chest pain, unspecified rodriguez - Chest pain on breathing rodriguez - Obesity, unspecified rodriguez - Non ST elevation DC rodriguez - Type 2 diabetes mellitus with hyperglycemia rodriguez - Influenza due to other identified influenza virus with other respiratory rodriguez manifestations - INFLUENZA B Forms: - Medication Reconciliation Form rodriguez - SBAR form rodriguez - Leadership Thank You Letter [facility] Signatures: Dispatcher [employer] EDMS Faye Callejas RN RN Jaime Mendoza MD MD cha Bryson, James RN RN jb4 Clay Fischer RN RN as6 Bethanie Chávez RN RN vc1 Andrew Mueller RN RN la4 Corrections: (The following items were deleted from the chart) 00:53 00:50 Thorax W/ Con ordered. EDMS EDMS 00:57 00:29 rodriguez mw
[2023-08-03 00:31] LABS: SARS-CoV-2 Antigen Rapid Res Negative (Negative)
[2023-08-03] MEDS ORDERED: ACETAMINOPHEN 500 MG TAB PO PRN (00:41)
[2023-08-03] MEDS ORDERED: MORPHINE 2 MG/ML SYR IV PRN (00:41)
[2023-08-03] MEDS ORDERED: ONDANSETRON 4 MG/2 ML VIAL IV PRN (00:41)
--- NOTE | 2023-08-03 00:41 | P.HP ---
Certification for Inpatient Patient admitted to: Observation With expected LOS: <2 Midnights Patient will require the following post-hospital care: None Practitioner: I am a practitioner with admitting privileges, knowledge of patient current condition, hospital course, and medical plan of care. Services: Services provided to patient in accordance with Admission requirements found in Title 42 Section 412.3 of the Code of Federal Regulations Patient History Date of Service: 08/03/23 Reason for admission: CP History of Present Illness: 52-year-old -[place] female with past medical history of hypertension, diabetes mellitus, obesity, history of DVT on chronic anticoagulation with Eliquis , chronic right hip pain s/p right hip replacement, history of PE, presented today because of chest discomfort and generalized weakness which has been going on for the last 2 days and has been progressively worsening and was brought to ER. Chest pain is retrosternal radiating to back not associated with any shortness of breath, sharp, denies any diaphoresis. No fever or chills. Associated with some upper respiratory tract symptoms. Denies any hemoptysis. No cough. No sick contacts denies any nausea vomiting or diarrhea. She was assessed in the ER noted to have mild elevation of troponin and is admitted for further management She was also found to be positive for flu B Allergies No Known Allergies Allergy (Unverified 12/22/12 18:28) Home medications list reviewed: Yes Home Medications: Amox/Clavulanate [Augmentin 875-125 Tab] 1 each PO BID #20 tab 11/17/21 Apixaban [Eliquis] 5 mg PO BID 11/17/21 Atorvastatin Calcium 20 mg PO BEDTIME 11/17/21 Benzonatate [Tessalon Perle] 200 mg PO TID PRN #15 cap 11/17/21 Celecoxib [Celebrex] 100 mg PO BID #10 capsule 11/17/21 Famotidine [Pepcid] 20 mg PO BID #30 tablet 11/17/21 Gabapentin 300 mg PO BID 11/17/21 Glipizide/Metformin HCl [Glipizide-Metformin 2.5-250 mg] 1 tab PO BID 11/17/21 Lisinopril [Zestril] 20 mg PO BID 11/17/21 Metformin HCl [Metformin HCl ER] 750 mg PO BID 11/17/21 bisacodyL [Dulcolax*] 10 mg PO DAILY PRN #10 tab 11/17/21 - Past Medical/Surgical History Past Medical History: Reviewed- Non-Contributory -: Hypertension -: Diabetes mellitus -: History of DVT -: Chronic anticoagulation with Eliquis Past Surgical History: Reviewed- Non-Contributory -: Right hip ORIF - Family History Family History: Reviewed- Non-Contributory - Social History Smoking Status: Never smoker Alcohol use: No CD- Drugs: No Caffeine use: No Review of Systems 10-point ROS is otherwise unremarkable General: Weakness, Malaise Eyes: Unremarkable ENT: Unremarkable Respiratory: SOB with Excertion Cardiovascular: Chest Pain, Palpitations, Unremarkable Gastrointestinal: Unremarkable Genitourinary: Unremarkable Musculoskeletal: Unremarkable Integumentary: Unremarkable Neurological: Unremarkable Physical Examination - Vital Signs Temperature: 101.3 F Blood Pressure: 172/75 Pulse: 128 Respirations: 21 Pulse Ox (%): 98 - Physical Exam General: Alert, Oriented x3, Cooperative, Mild distress, Obese HEENT: Atraumatic, Normocephalic Neck: Supple, No Thyromegaly Respiratory: Clear to auscultation bilaterally, Crackles/rales Cardiovascular: Regular rate/rhythm, Normal S1 S2, No murmurs Capillary refill: <2 Seconds Gastrointestinal: Soft and benign, Non-distended, W/out hepatosplenomegaly Musculoskeletal: No clubbing Integumentary: No rashes, Tenderness/swelling, Other (tenderness in the right arm ) Neurological: Normal strength at 5/5 x4 extr, Cranial nerves 3-12 intact, Normal reflexes 2+, Normal affect Lymphatics: No axilla or inguinal lymphadenopathy - Studies Laboratory Data (last 24 hrs) 08/02/23 08/02/23 08/02/23 23:26 23:26 23:26 WBC 15.90 H Hgb 10.9 L Hct 33.9 L Plt Count 379 PT 13.9 H INR 1.26 Sodium 136 Potassium 3.8 BUN 12 Creatinine 1.29 H Glucose 317 H Magnesium 1.6 Total Bilirubin 0.9 AST 17 ALT 24 Alkaline Phosphatase 82 Lipase 37 Microbiology Data (last 24 hrs): 08/02/23 23:45 Nasopharnyx Influenza Type A Antigen Screen - Final 08/02/23 23:45 Nasopharnyx Influenza Type B Antigen Screen - Final 08/02/23 23:26 Throat Group A Streptococcus Rapid Screen - Final Assessment and Plan - Problems (Diagnosis) (1) NSTEMI (non-ST elevated myocardial infarction) Current Visit: Yes Status: Acute Plan: Patient complains of chest pain radiating to the back Cardiac enzymes trended Started on aspirin and statin Monitor closely with telemetry We will get an echocardiogram Cardiology consult if troponins trending higher Pain control (2) Influenza B Current Visit: Yes Status: Acute Plan: We will start on Tamiflu NSAIDs Supportive management isolation (3) Diabetes Current Visit: Yes Status: Chronic Plan: We will get an A1c Insulin sliding scale Will hold metformin for now Monitor Accu-Cheks before every meal and at bedtime Qualifiers: Diabetes mellitus type: type 2 Diabetes mellitus complication status: with hyperglycemia (4) Hypertension Current Visit: Yes Status: Chronic Plan: Continue home medications and titrate as needed Antihypertensives titrated Monitor closely under telemetry (5) History of pulmonary embolism Current Visit: Yes Status: Chronic Plan: We will get a CT PE protocol Elevated D-dimer found Patient is on Eliquis at home We will continue Eliquis for now We will get an echocardiogram (6) Obesity Current Visit: Yes Status: Chronic Plan: Advise lifestyle modification (7) Right upper limb pain Current Visit: Yes Status: Acute Plan: Possibly due to extravasation of the dye Hold home addition We will add on NSAIDs Discharge Plan: Home Plan to discharge in: 24 Hours - Advance Directives Does patient have a Living Will: No Does patient have a Durable POA for Healthcare: No - Code Status/Comfort Care Code Status: Full Code Physician Review: Patient Assessed, Agree with Above Assessment and Plan Time Spent Managing Pts Care (In Minutes): 46
[2023-08-03] MEDS ORDERED: OSELTAMIVIR 75 MG CAP PO ONE ×2 (01:45→09:00)
[2023-08-03 03:13] VITALS: BMI 55.3
[2023-08-03 03:22] LABS: Specific Gravity 1.024 (1.005-1.030); Urine Bacteria <20 /HPF (<20); Urine Bilirubin NEGATIVE (Negative); Urine Blood Negative (Negative); Urine Clarity Clear (Clear); Urine Color Yellow (Yellow); Urine Glucose 3+ (Negative); Urine Mucus Slight /HPF (None Seen); Urine Protein 2+ (Negative); Urine RBC <5 /HPF (None Seen); Urine Urobilinogen 1+ (Normal)
[2023-08-03] MEDS ORDERED: IBUPROFEN 400 MG TAB PO PRN (03:49)
[2023-08-03] MEDS: INSULIN REGULAR (HUMAN) 100 UNIT/ML SQ SCH ×4 (07:30→23:26)
[2023-08-03] MEDS ORDERED: INFLUENZA VACCINE (for 6+ mo) 0.5 ML DOSE IMVAC ONE (08:00)
[2023-08-03] MEDS ORDERED: PNEUMOCOCCAL VACCINE 0.5 ML IMVAC ONE (08:00)
[2023-08-03] MEDS: GABAPENTIN 300 MG CAP PO SCH ×2 (08:19→23:37)
[2023-08-03] MEDS: ASPIRIN EC 81 MG TAB PO SCH (08:19)
[2023-08-03] MEDS: APIXABAN 5 MG TABLET PO SCH ×2 (08:19→23:25)
[2023-08-03] MEDS: FAMOTIDINE 20 MG TAB PO SCH (08:19)
[2023-08-03] MEDS: lisinopriL 20 MG TAB PO SCH ×2 (08:19→23:25)
[2023-08-03] MEDS: CEFTRIAXONE 1,000 MG in NA CHLORIDE 0.9% 50 ML IVPB SCH (08:23)
[2023-08-03] MEDS: AZITHROMYCIN IV 500 MG in NA CHLORIDE 0.9% 250 ML IVPB SCH (08:23)
[2023-08-03] MEDS ORDERED: OSELTAMIVIR 75 MG CAP PO SCH (09:00)
--- NOTE | 2023-08-03 15:12 | P.PN ---
Subjective Date of Service: 08/03/23 Chief Complaint: CP Subjective: Doing well HPI 08/03: Puja Abarca is a 52-year-old -[place] female with past medical history of hypertension, diabetes mellitus, obesity, history of DVT on chronic anticoagulation with Eliquis , chronic right hip pain s/p right hip replacement, history of PE, presented today because of chest discomfort and generalized weakness which has been going on for the last 2 days and has been progressively worsening and was brought to ER. Chest pain is retrosternal radiating to back not associated with any shortness of breath, sharp, denies any diaphoresis. No fever or chills. Associated with some upper respiratory tract symptoms. Denies any hemoptysis. No cough. No sick contacts denies any nausea vomiting or diarrhea. She was assessed in the ER noted to have mild elevation of troponin and is admitted for further management She was also found to be positive for flu B. 08/03: Puja is awake lying in bed. She arrived and was admitted early this morning. She is feeling better than she did at home. She seems to be symptomatic with the flu. She reports being scheduled for a stress test but her blood pressure was too high so this was canceled. Dr. Ruiz has been consulted. She denies CP, SOB, RACHEL, dizziness, and N/V. <Berkley Ridley - Last Filed: 08/03/23 15:24> Date of Service: 08/04/23 <ami lee - Last Filed: 08/04/23 14:31> Review of Systems 10-point ROS is otherwise unremarkable <Berkley Ridley - Last Filed: 08/03/23 15:24> Physical Examination - Vital Signs Temperature: 96.8 F Blood Pressure: 128/64 Pulse: 91 Respirations: 18 Pulse Ox (%): 96 - Studies Laboratory Data (last 24 hrs) 08/02/23 08/02/23 08/02/23 23:26 23:26 23:26 WBC 15.90 H Hgb 10.9 L Hct 33.9 L Plt Count 379 PT 13.9 H INR 1.26 Sodium 136 Potassium 3.8 BUN 12 Creatinine 1.29 H Glucose 317 H Magnesium 1.6 Total Bilirubin 0.9 AST 17 ALT 24 Alkaline Phosphatase 82 Lipase 37 08/02/23 08/02/23 08/02/23 23:09 23:09 23:09 WBC Cancelled Hgb Cancelled Hct Cancelled Plt Count Cancelled PT Cancelled INR Cancelled Sodium Cancelled Potassium Cancelled BUN Cancelled Creatinine Cancelled Glucose Cancelled Magnesium Cancelled Total Bilirubin Cancelled AST Cancelled ALT Cancelled Alkaline Phosphatase Cancelled Lipase Cancelled Microbiology Data (last 24 hrs): 08/02/23 23:45 Nasopharnyx Influenza Type A Antigen Screen - Final 08/02/23 23:45 Nasopharnyx Influenza Type B Antigen Screen - Final 08/02/23 23:26 Throat Group A Streptococcus Rapid Screen - Final <Berkley iRdley - Last Filed: 08/03/23 15:24> - Studies Microbiology Data (last 24 hrs): 08/02/23 23:26 Throat Group A Streptococcus Rapid Screen - Final <ami lee - Last Filed: 08/04/23 14:31> Assessment And Plan - Plan Physical Exam General: Alert, Oriented x3, Cooperative, Mild distress, Obese HEENT: Atraumatic, Normocephalic Neck: Supple, No Thyromegaly Respiratory: Clear to auscultation bilaterally, Crackles/rales Cardiovascular: Regular rate/rhythm, Normal S1 S2, No murmurs Capillary refill: <2 Seconds Gastrointestinal: Soft and benign, Non-distended, W/out hepatosplenomegaly Musculoskeletal: No clubbing Integumentary: No rashes, Tenderness/swelling, Other (tenderness in the right arm ) Neurological: Normal strength at 5/5 x4 extr, Cranial nerves 3-12 intact, Normal reflexes 2+, Normal affect Lymphatics: No axilla or inguinal lymphadenopathy - Problems (Diagnosis) (1) NSTEMI (non-ST elevated myocardial infarction) Current Visit: Yes Status: Acute Plan: Patient complains of chest pain radiating to the back Cardiac enzymes: Trop 84.6/254.1/pending Started on aspirin and statin Monitor closely with telemetry We will get an echocardiogram Cardiology consulted Pain control (2) Influenza B Current Visit: Yes Status: Acute Plan: We will start on Tamiflu NSAIDs Supportive management isolation procalcitonin 0.24 (3) Diabetes Current Visit: Yes Status: Chronic Plan: We will get an A1C Insulin sliding scale Will hold metformin for now Monitor Accu-Cheks before every meal and at bedtime Qualifiers: Diabetes mellitus type: type 2 Diabetes mellitus complication status: with hyperglycemia (4) Hypertension Current Visit: Yes Status: Chronic Plan: Continue home medications and titrate as needed Antihypertensives titrated Monitor closely under telemetry (5) History of pulmonary embolism Current Visit: Yes Status: Chronic Plan: We will get a CT PE protocol Elevated D-dimer 880 Patient is on Eliquis at home We will continue Eliquis for now We will get an echocardiogram (6) Obesity Current Visit: Yes Status: Chronic Plan: Advise lifestyle modification (7) Right upper limb pain Current Visit: Yes Status: Acute Plan: Possibly due to extravasation of the dye Hold home addition We will add on NSAIDs Discharge Plan: Home Plan to discharge in: 24 Hours Discharge Plan: Home Plan to discharge in: 48 Hours Physician Review: Patient Assessed, Agree with Above Assessment and Plan Time Spent Managing PTS Care (In Minutes): 35 <Berkley Ridley - Last Filed: 08/03/23 15:24> - Plan Patient seen and examined. Plan of care discussed with KAI WHAKARURUHAU Jasbir Khai Elevated troponin likely secondary to demand ischemia versus influenza B myocarditis. Currently chest pain-free Major symptoms include upper respiratory symptoms Continue Tamiflu Echocardiogram. Continue Eliquis for history of PE. <ami lee - Last Filed: 08/04/23 14:31>
[2023-08-03] MEDS ORDERED: ATORVASTATIN 40 MG TAB PO SCH (21:00)
[2023-08-03] MEDS ORDERED: ATORVASTATIN 20 MG TAB PO SCH (21:00)
--- NOTE | 2023-08-03 21:54 | RAD REPORT ---
EXAM DESCRIPTION: RAD - Chest Single View - 08/02/2023 11:48 pm CLINICAL HISTORY: 2 years Female, shortness of breath COMPARISON: Chest radiograph dated 11/16/2021 IMPRESSION: Low lung volumes. Left lung base opacity concerning for pneumonia. Left pleural effusion. No pneumothorax. Cardiomediastinal silhouette is enlarged. No acute osseous abnormality. Electronically signed by: Dion Villatoro DO 08/03/2023 12:31 AM CDT Due to temporary technical issues with the PACS/Fluency reporting system, reports are being signed by the in house radiologists without review as a courtesy to insure prompt reporting. The interpreting radiologist is fully responsible for the content of the report.
[2023-08-03] MEDS: OSELTAMIVIR 30 MG CAP PO SCH (23:25)
[2023-08-04] MEDS: INSULIN REGULAR (HUMAN) 100 UNIT/ML SQ SCH ×2 (07:30→11:30)
--- NOTE | 2023-08-04 08:26 | P.PN ---
Subjective Date of Service: 08/04/23 Chief Complaint: CP Subjective: Doing well HPI 08/03: Puja Abarca is a 52-year-old -[place]ian female with past medical history of hypertension, diabetes mellitus, obesity, history of DVT on chronic anticoagulation with Eliquis , chronic right hip pain s/p right hip replacement, history of PE, presented today because of chest discomfort and generalized weakness which has been going on for the last 2 days and has been progressively worsening and was brought to ER. Chest pain is retrosternal radiating to back not associated with any shortness of breath, sharp, denies any diaphoresis. No fever or chills. Associated with some upper respiratory tract symptoms. Denies any hemoptysis. No cough. No sick contacts denies any nausea vomiting or diarrhea. She was assessed in the ER noted to have mild elevation of troponin and is admitted for further management She was also found to be positive for flu B. 08/03: Puja is awake lying in bed. She arrived and was admitted early this morning. She is feeling better than she did at home. She seems to be symptomatic with the flu. She reports being scheduled for a stress test but her blood pressure was too high so this was canceled. Dr. Ruiz has been consulted. She denies CP, SOB, RACHEL, dizziness, and N/V. 08/04: Puja is sleeping well this AM. Nurse reports she did well over night. Will order an IS for lung expansion. Plan for heart cath on Sunday with Dr. Ruiz. Working on glucose control, will educate patient the need for insulin while inpatient. Review of Systems 10-point ROS is otherwise unremarkable Physical Examination - Vital Signs Temperature: 98 F Blood Pressure: 125/66 Pulse: 86 Respirations: 18 Pulse Ox (%): 98 Assessment And Plan - Plan Physical Exam General: Alert, Oriented x3, Cooperative, Mild distress, Obese HEENT: Atraumatic, Normocephalic Neck: Supple, No Thyromegaly Respiratory: Clear to auscultation bilaterally, Crackles/rales Cardiovascular: Regular rate/rhythm, Normal S1 S2, No murmurs Capillary refill: <2 Seconds Gastrointestinal: Soft and benign, Non-distended, W/out hepatosplenomegaly Musculoskeletal: No clubbing Integumentary: No rashes, Tenderness/swelling, Other (tenderness in the right arm ) Neurological: Normal strength at 5/5 x4 extr, Cranial nerves 3-12 intact, Normal reflexes 2+, Normal affect Lymphatics: No axilla or inguinal lymphadenopathy - Problems (Diagnosis) (1) NSTEMI (non-ST elevated myocardial infarction) Current Visit: Yes Status: Acute Plan: Patient complains of chest pain radiating to the back Cardiac enzymes: Trop 84.6/254.1/221/pending Started on aspirin and statin Monitor closely with telemetry We will get an echocardiogram Cardiology consulted Pain control Left heart cath on Sunday with Dr. Ruiz (2) Influenza B Current Visit: Yes Status: Acute Plan: We will start on Tamiflu NSAIDs Supportive management isolation procalcitonin 0.24 (3) Diabetes Current Visit: Yes Status: Chronic Plan: We will get an [id number] Insulin sliding scale-moderate Will hold metformin for now Monitor Accu-Cheks before every meal and at bedtime Qualifiers: Diabetes mellitus type: type 2 Diabetes mellitus complication status: with hyperglycemia (4) Hypertension Current Visit: Yes Status: Chronic Plan: Continue home medications and titrate as needed Antihypertensives titrated Monitor closely under telemetry (5) History of pulmonary embolism Current Visit: Yes Status: Chronic Plan: We will get a CT PE protocol Elevated D-dimer 880 Patient is on Eliquis at home We will continue Eliquis for now We will get an echocardiogram (6) Obesity Current Visit: Yes Status: Chronic Plan: Advise lifestyle modification (7) Right upper limb pain Current Visit: Yes Status: Acute Plan: Possibly due to extravasation of the dye Hold home addition We will add on NSAIDs Discharge Plan: Home Plan to discharge in: 24 Hours Discharge Plan: Home Plan to discharge in: 48 Hours Physician Review: Patient Assessed, Agree with Above Assessment and Plan Time Spent Managing PTS Care (In Minutes): 35
[2023-08-04] MEDS: OSELTAMIVIR 30 MG CAP PO SCH (09:00)
[2023-08-04 09:15] LABS: RBC Red Blood Cell Count 3.86 M/uL (3.86-4.86)
[2023-08-04 09:16] LABS: Absolute Lymphocytes (CBC) 2.8 K/uL (0.7-4.9); Hematocrit 31.3 % (36.0-45.0); Lymphocytes % 30.4 % (15.3-44.8); MPV 7.4 fL (7.6-11.3); Platelets 350 thou/uL (152-406)
[2023-08-04 09:33] LABS: Albumin 2.8 g/dL (3.4-5.0); Bilirubin Total 0.7 mg/dL (0.2-1.0); Protein, Total 7.9 g/dL (6.4-8.2)
[2023-08-04] MEDS: lisinopriL 20 MG TAB PO SCH (09:37)
[2023-08-04] MEDS: FAMOTIDINE 20 MG TAB PO SCH (09:37)
[2023-08-04] MEDS: APIXABAN 5 MG TABLET PO SCH (09:37)
[2023-08-04] MEDS: GABAPENTIN 300 MG CAP PO SCH (09:37)
[2023-08-04] MEDS: ASPIRIN EC 81 MG TAB PO SCH (09:37)
[2023-08-04] MEDS: CEFTRIAXONE 1,000 MG in NA CHLORIDE 0.9% 50 ML IVPB SCH (09:38)
[2023-08-04] MEDS: AZITHROMYCIN IV 500 MG in NA CHLORIDE 0.9% 250 ML IVPB SCH (09:38)
[2023-08-04] MEDS ORDERED: BISACODYL E.C. 5 MG TAB PO PRN (10:16)
[2023-08-04] MEDS ORDERED: GUAIFENESIN 600 MG SA TAB PO SCH ×2 (12:52→21:00)
[2023-08-04] MEDS ORDERED: MAGNESIUM CITRATE 300 ML BOT PO SCH (13:00)
[2023-08-04] MEDS ORDERED: ALBUTEROL 2.5 MG/3 ML NEB SOL NEB SCH (14:00)
--- NOTE | 2023-08-04 14:08 | P.DS ---
Admission Date: 08/03/23 Discharge Date: 08/04/23 Disposition: ROUTINE DISCHARGE Discharge Condition: GOOD Reason for Admission: CP - Problems (1) Influenza B Status: Acute (2) Hypertension Status: Chronic (3) Left lower lobe pneumonia Status: Acute (4) Elevated troponin I level Status: Acute Hospital Course: Puja Abarca is a pleasant 52 year old female with a past medical history significant for hypertension, diabetes mellitus, obesity, history of DVT on chronic anticoagulation with Eliquis , chronic right hip pain s/p right hip replacement, and history of PE who was admitted to the [facility] on 08/03 for elevated troponin, pneumonia, and flu. Puja presented to the ED chest pain radiating to her back and generalized weakness that have progressively worsening for the last 2 days. She was found to have pneumonia, flu, and elevated troponins. She has tolerated IV antibiotics and PO diet, she is on RA, and can ambulate independently in her room. She was complaining of chest congestion so mucinex was started and will be prescribed for home use. She will need to follow up with Dr. Ruiz for a stress test which was previously scheduled but couldn't be performed d/t hypertension. On 08/04/23, Puja was seen on morning rounds and deemed medically stable for discharge. Puja was discharged with instructions to schedule follow-up appointments with PCP and Dr. Ruiz. Puja was provided prescriptions for mucinex, zithromax, asa, lipitor, tamiflu, Eliquis, lisinopril. The patient was given the opportunity to ask questions and reported no further questions. Furthermore, all questions were answered to the best of my ability. A copy of this discharge summary will be sent to the above providers to facilitate continuity of care. Today, I personally spent 55 minutes with uPja, of which greater than 50% of the time was spent in patient education, counseling, and coordination of care as described above.], Physical Exam General: Alert, Oriented x3, Cooperative, Mild distress, Obese HEENT: Atraumatic, Normocephalic Neck: Supple, No Thyromegaly Respiratory: Clear to auscultation bilaterally, Crackles/rales Cardiovascular: Regular rate/rhythm, Normal S1 S2, No murmurs Capillary refill: <2 Seconds Gastrointestinal: Soft and benign, Non-distended, W/out hepatosplenomegaly Musculoskeletal: No clubbing Integumentary: No rashes, Tenderness/swelling, Other (tenderness in the right arm ) Neurological: Normal strength at 5/5 x4 extr, Cranial nerves 3-12 intact, Normal reflexes 2+, Normal affect Lymphatics: No axilla or inguinal lymphadenopathy Vital Signs/Physical Exam: Temp Pulse Resp BP Pulse Ox 98 F 86 18 125/66 98 08/04/23 10:28 08/04/23 10:28 08/04/23 10:28 08/04/23 10:28 08/04/23 10:28 Laboratory Data at Discharge: WBC 9.20 thou/uL (4.3-10.9) 08/04/23 09:08 Hgb 10.1 g/dL (12.0-15.0) L 08/04/23 09:08 Hct 31.3 % (36.0-45.0) L 08/04/23 09:08 Plt Count 350 thou/uL (152-406) 08/04/23 09:08 PT 13.9 SECONDS (9.5-12.5) H 08/02/23 23:26 INR 1.26 08/02/23 23:26 Sodium 139 mEq/L (136-145) 08/04/23 09:08 Potassium 4.0 mEq/L (3.5-5.1) 08/04/23 09:08 BUN 16 mg/dL (7-18) 08/04/23 09:08 Creatinine 0.84 mg/dL (0.55-1.02) 08/04/23 09:08 Glucose 226 mg/dL (74-106) H 08/04/23 09:08 Magnesium 1.6 mg/dL (1.6-2.4) 08/02/23 23:26 Total Bilirubin 0.7 mg/dL (0.2-1.0) 08/04/23 09:08 AST 9 U/L (15-37) L 08/04/23 09:08 ALT 21 U/L (13-56) 08/04/23 09:08 Alkaline Phosphatase 77 U/L (45-117) 08/04/23 09:08 Triglycerides 153 mg/dL (<150) H 08/04/23 09:08 Cholesterol 144 mg/dL (<200) 08/04/23 09:08 HDL Cholesterol 56 mg/dL (40-60) 08/04/23 09:08 Cholesterol/HDL Ratio 2.57 08/04/23 09:08 Lipase 37 U/L (13-75) 08/02/23 23:26 Home Medications: Gabapentin 300 mg PO BID 11/17/21 Metformin HCl [Metformin HCl ER] 500 mg PO BID 11/17/21 Glimepiride 4 mg PO BID 08/03/23 Apixaban [Eliquis] 5 mg PO BID 30 Days #60 tab 08/04/23 Aspirin [Aspirin EC 81 MG] 81 mg PO DAILY 30 Days #30 tab 08/04/23 Atorvastatin Calcium [Lipitor] 40 mg PO BEDTIME 30 Days #30 tab 08/04/23 Azithromycin 500 mg PO DAILY 5 Days #5 tab 08/04/23 Guaifenesin [Mucinex] 600 mg PO BID 7 Days #14 tab 08/04/23 Oseltamivir Phosphate [Tamiflu] 30 mg PO BID 4 Days #8 cap 08/04/23 lisinopriL [Prinivil*] 20 mg PO BID 30 Days #60 tab 08/04/23 New Medications: Aspirin [Aspirin EC 81 MG] 81 mg PO DAILY 30 Days #30 tab Azithromycin 500 mg PO DAILY 5 Days #5 tab Apixaban [Eliquis] 5 mg PO BID 30 Days #60 tab Atorvastatin Calcium [Lipitor] 40 mg PO BEDTIME 30 Days #30 tab Guaifenesin [Mucinex] 600 mg PO BID 7 Days #14 tab lisinopriL [Prinivil*] 20 mg PO BID 30 Days #60 tab Oseltamivir Phosphate [Tamiflu] 30 mg PO BID 4 Days #8 cap Physician Discharge Instructions: 1. Please call and schedule a follow-up appointment with your PCP in 3-5 days - Please follow-up with your PCP for medication refills/adjustments 2. Please call and schedule a follow-up appointment and outpatient stress test with Dr. Ruiz. 3. Heart healthy and consistent carb diet 5. Stay hydrated 4. Return to ED if symptoms return New medications Eliquis mucinex- chest congestion aspirin Zithromax Lisinipril changed dose Lipitor changed dose Diet: ADA Activity: Ad jessica Followup: NONE,NONE [Primary Care Provider] - Jason Ruiz MD [ACTIVE - CAN ADMIT] - 1 Week (Please call Dr. Ruiz office for arrangement for stress test.) Time spent managing pt's care (in minutes): 55
[2023-08-04 14:42] VITALS: O2SAT 96
[2023-08-04 14:43] VITALS: BP 128/66; TEMP 98.1
--- NOTE | 2023-08-06 08:24 | ECHO ---
HEIGHT: 5 ft 3 in WEIGHT: 312 lb 8 oz DATE OF STUDY: 08/03/[address]: Savage Diaz DO 2-DIMENSIONAL: YES M.MODE: YES DOPPLER: YES COLOR FLOW: YES TDS: YES PORTABLE: YES DEFINITY: BUBBLE STUDY: DIAGNOSIS: NON ST ELEVATION MYOCARDIAL INFARCTION CARDIAC HISTORY: CATHERIZATION: YES SURGERY: NO PROSTHETIC VALVE: NO PACEMAKER: NO MEASUREMENTS (cm) DIASTOLIC (NORMALS) SYSTOLIC (NORMALS) IVSd 1.4 (0.6-1.2) LA Diam 2.7 (1.9-4.0) LVEF 69% LVIDd 4.4 (3.5-5.7) LVIDs 2.7 (2.0-3.5) %FS 39% LVPWd 1.3 (0.6-1.2) Ao Diam 2.4 (2.0-3.7) 2 DIMENSIONAL ASSESSMENT: RIGHT ATRIUM: NORMAL LEFT ATRIUM: NORMAL RIGHT VENTRICLE: NORMAL LEFT VENTRICLE: NORMAL TRICUSPID VALVE: MILD TRICUSPID REGURGITATION MITRAL VALVE: NORMAL PULMONIC VALVE: NORMAL AORTIC VALVE: NORMAL PERICARDIAL EFFUSION: NONE AORTIC ROOT: NORMAL LEFT VENTRICULAR WALL MOTION: APPEARS NORMAL DOPPLER/COLOR FLOW: SEE BELOW COMMENTS: 1. VERY POOR WINDOWS 2. OVERALL LEFT VENTRICULAR EJECTION FRACTION APPEARS NORMAL 60-65% 3. PULMONARY HYPERTENSION WITH RIGHT VENTRICULAR SYSTOLIC PRESSURE GREATER THAN 60 mmHg. TECHNOLOGIST: CONY PIERSON
== END 2023-08-04 16:07 | disposition home or self-care (01) | DRG 871 ==
LOC: ER 22:52 → ERHOLD 08-03 00:43 → 4TH 08-03 01:59 → OBSVTOIN 08-03 16:41
PROVIDERS: ADMIT Family Medicine; ATTEND Internal Medicine
DX: A41.89 Other specified sepsis (principal); I21.4 Non-ST elevation (NSTEMI) myocardial infarction; J10.00 Influenza due to other identified influenza virus with unspecified type of pneumonia; Z68.43 Body mass index [BMI] 50.0-59.9, adult; E87.20 Acidosis, unspecified; E66.01 Morbid (severe) obesity due to excess calories; I10 Essential (primary) hypertension; M79.621 Pain in right upper arm; E11.65 Type 2 diabetes mellitus with hyperglycemia; G89.29 Other chronic pain; M25.551 Pain in right hip; E78.00 Pure hypercholesterolemia, unspecified; Z79.01 Long term (current) use of anticoagulants; Z11.52 Encounter for screening for COVID-19; Z79.84 Long term (current) use of oral hypoglycemic drugs; Z79.899 Other long term (current) drug therapy; Z86.718 Personal history of other venous thrombosis and embolism; Z96.641 Presence of right artificial hip joint; Z28.310 Unvaccinated for COVID-19; Z86.711 Personal history of pulmonary embolism
CPT/HCPCS: 36415; 71045; 80048; 80053; 80061; 80076; 81001; 82947; 83036; 83605; 83690; 83735; 83880; 84145; 84484; 85025; 85379; 85610; 87040; 87070; 87081; 87804; 87811; 93005; 93306; 94010; 94640; 94760; 96361; 96374; 96375; 99285; G0378; J0696; J1815; J2270; J7050; J7613

== ENCOUNTER 2024-04-04 06:16 | Emergency (ER) | payer OTHER ==
[2024-04-04 07:52] LABS: Absolute Basophils 0.1 K/uL (0-0.5); Absolute Eosinophils 0.2 K/uL (0-0.5); Absolute Lymphocytes (CBC) 2.9 K/uL (0.7-4.9); Absolute Monocytes 0.7 K/uL (0.1-1.3); Absolute Neutrophil 4.6 K/uL (1.8-8.0); Basophils % 0.9 % (0-1.3); Eosinophils % 2.2 % (0-4.4); Hematocrit 39.7 % (36.0-45.0); Hemoglobin 11.9 g/dL (12.0-15.0); Lymphocytes % 34.1 % (15.3-44.8); MCH 24.3 pg (27.0-35.0); MPV 7.7 fL (7.6-11.3); Monocytes % 8.8 % (3.3-12.3); Platelets 392 thou/uL (152-406); RBC Red Blood Cell Count 4.91 M/uL (3.86-4.86); Red Cell Distribution Width 15.8 % (12.1-15.2)
[2024-04-04 08:01] LABS: PT Prothrombin Time 11.6 SECONDS (9.4-12.5); PTT, Activated Partial Thromb 29.2 SECONDS (24.3-36.9); Protime INR 1.06
--- NOTE | 2024-04-04 08:05 | RAD REPORT ---
EXAM DESCRIPTION: US - Extremity Venous Uni Ltd - 04/04/2024 7:57 am CLINICAL HISTORY: PAIN Leg swelling and edema. COMPARISON: Extremity Venous Uni Ltd dated 11/16/2021 FINDINGS: Right lower extremity venous system was interrogated with Doppler technique. Normal flow, compressibility and augmentation was noted. There is no DVT present. IMPRESSION: No evidence of right lower extremity deep venous thrombosis.
[2024-04-04 08:06] LABS: Anion Gap 6.8 mEq/L (5.0-15.0); Potassium 3.8 mEq/L (3.5-5.1)
--- NOTE | 2024-04-04 09:06 | ER ---
Nurse's Notes [facility] Name: Puja Abarca Age: 53 yrs Sex: Female : 1970 Arrival Date: 04/04/2024 Time: 06:16 Bed 6 Private MD: Diagnosis: Pain in right leg Presentation: 04/04 06:32 Chief complaint: Chief complaint: Patient states: ran out of Mc4 2 weeks ago and I vc1 think I have another blood clot. 06:39 Coronavirus screen: Client denies travel out of the [place] in the last 14 days. At this vc1 time, the client does not indicate any symptoms associated with coronavirus-19. Ebola Screen: Patient negative for fever greater than or equal to 101.5 degrees Fahrenheit, and additional compatible Ebola Virus Disease symptoms Patient denies exposure to infectious person. Patient denies travel to an Ebola-affected area in the 21 days before illness onset. No symptoms or risks identified at this time. Initial Sepsis Screen: Does the patient meet any 2 criteria? No. Patient's initial sepsis screen is negative. Does the patient have a suspected source of infection? No. Patient's initial sepsis screen is negative. Risk Assessment: Do you want to hurt yourself or someone else? Patient reports no desire to harm self or others. Onset of symptoms is unknown. 06:39 Method Of Arrival: Wheelchair vc1 06:39 Acuity: JAYME 3 vc1 Triage Assessment: 06:42 General: Appears in no apparent distress. uncomfortable, obese, well groomed, Behavior vc1 is calm, cooperative, appropriate for age. Pain: Complains of pain in right hamstring Pain radiates to right calf Pain currently is 10 out of 10 on a pain scale. Quality of pain is described as throbbing. Neuro: Level of Consciousness is awake, alert, obeys commands, Oriented to person, place, time, situation. Cardiovascular: Reports swelling to right calf. Respiratory: Airway is patent Respiratory effort is even, unlabored, Respiratory pattern is regular, symmetrical. Derm: Reports pain that is 8 out of 10 on a pain scale. 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 - Infectious Disease History:: Denies. - Social history:: Smoking status: Patient denies any tobacco usage or history of. - Family history:: not pertinent. - Hospitalizations: : No recent hospitalization is reported. Screenin:53 [facility] ED Fall Risk Assessment (Adult) History of falling in the last 3 months, jj7 including since admission No falls in past 3 months (0 pts) Confusion or Disorientation No (0 pts) Intoxicated or Sedated No (0 pts) Impaired Gait No (0 pts) Mobility Assist Device Used No (0 pt) Altered Elimination No (0 pt) Score/Fall Risk Level 0 - 2 = Low Risk Oriented to surroundings, Maintained a safe environment, Educated pt \T\ family on fall prevention, incl call for assistance when getting out of bed. Abuse screen: Denies threats or abuse. Nutritional screening: No deficits noted. Tuberculosis screening: No symptoms or risk factors identified. Assessment: 06:53 General: Appears in no apparent distress. comfortable, obese, Behavior is calm, jj7 cooperative, appropriate for age. Cardiovascular: Reports PAIN IN BEHIND RIGHT THIGH. Derm: Skin is normal, brown, Skin temperature is warm Reports pain that is 8 out of 10 on a pain scale. Musculoskeletal: Capillary refill < 3 seconds. 07:11 Reassessment: REPORT GIVEN TO GREY ROBERTO. [email or web address] Vital Signs: 06:39 Weight 136.08 kg; Height 5 ft. 3 in. ; Pain 10/10; vc1 06:52 BP 172 / 73; Pulse 75; Resp 17; Temp 97.3; Pulse Ox 100% ; Pain 8/10; jj7 08:13 BP 156 / 72; Pulse 85; Resp 18; Pulse Ox 98% on R/A; ph 09:35 BP 149 / 78; Pulse 79; Resp 18; Temp 97.2; Pulse Ox 99% on R/A; ph 06:39 Body Mass Index 53.14 (136.08 kg, 160.02 cm) vc1 06:39 Pain Scale: Adult vc1 06:52 Pain Scale: Adult jj7 ED Course: 06:19 Patient arrived in ED. mr 06:42 Triage completed. vc1 06:42 Arm band placed on right wrist. vc1 06:53 Patient has correct armband on for positive identification. Bed in low position. Call jj7 light in reach. Side rails up X2. Provided Education on: USE OF CALL TIPTON. Warm blanket given. 06:59 Kian Tellez MD is Attending Physician. rn 07:16 Nhung Dejesus, RN is Primary Nurse. ph 07:35 Initial lab(s) drawn, by me, sent to lab. Inserted saline lock: 22 gauge in right ph antecubital area, using aseptic technique. Blood collected. 07:59 Extremity Venous Uni Ltd US In Process Unspecified. EDMS 09:35 No provider procedures requiring assistance completed. IV discontinued, intact, ph bleeding controlled, No redness/swelling at site. Pressure dressing applied. Administered Medications: No medications were administered Medication: 06:53 VIS not applicable for this client. jj7 Outcome: 09:06 Discharge ordered by . rn 09:36 Discharged to home via wheelchair, with friend, ph 09:36 Condition: good 09:36 Discharge instructions given to patient, Instructed on discharge instructions, follow up and referral plans. medication usage, Demonstrated understanding of instructions, follow-up care, medications, Prescriptions given X 1, 09:36 Patient left the ED. ph Signatures: Dispatcher [employer] [facility] Alyssa Hoang, [facility] Reg mr Kian Tellez MD MD rn Hall, Patricia, RN RN ph Bethanie Chávez RN RN vc1 Manuel Saab RN RN jj7 Corrections: (The following items were deleted from the chart) 06:42 06:32 Chief complaint: vc1 vc1
--- NOTE | 2024-04-04 09:06 | EDPHYS ---
Physician Documentation [facility] Name: Puja Abarca Age: 53 yrs Sex: Female : 1970 Arrival Date: 04/04/2024 Time: 06:16 Bed 6 Private MD: ED Physician Kian Tellez HPI: 04/04 07:30 This 53 yrs old Black Female presents to ER via Wheelchair with complaints of Leg Pain. rn 07:30 The patient presents with pain, that is acute. The complaints affect the right rn hamstring and posterior aspect of right knee. Onset: The symptoms/episode began/occurred today. Modifying factors: The symptoms are alleviated by nothing. the symptoms are aggravated by nothing. Severity of symptoms: At their worst the symptoms were mild, in the emergency department the symptoms are unchanged. The patient has experienced similar episodes in the past. Patient reports pain to the back of the right leg, began this morning, no injury or fall. Reports history of DVT in that leg x 2, on ElieROI, ran out of Eliquis 3 weeks ago.. 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 - Infectious Disease History:: Denies. - Social history:: Smoking status: Patient denies any tobacco usage or history of. - Family history:: not pertinent. - Hospitalizations: : No recent hospitalization is reported. ROS: 07:30 Constitutional: Negative for fever, chills, and weight loss, Cardiovascular: Negative rn for chest pain, palpitations, and edema, Respiratory: Negative for cough, wheezing, and pleuritic chest pain, Abdomen/GI: Negative for abdominal pain, nausea, vomiting, diarrhea, and constipation, Back: Negative for injury and pain, MS/Extremity: Positive for pain to the right leg Skin: Negative for injury, rash, and discoloration, Neuro: Negative for headache, weakness, numbness, tingling, and seizure, Exam: 07:30 Constitutional: This is a well developed, well nourished patient who is awake, alert, rn and in no acute distress. Cardiovascular: Regular rate and rhythm. No pulse deficits. Respiratory: No increased work of breathing, no retractions or nasal flaring. Skin: Warm, dry with normal turgor. Normal color with no rashes, no lesions, and no evidence of cellulitis. MS/ Extremity: Pulses equal, no cyanosis. Neurovascular intact. Full, normal range of motion. Equal circumference. Neuro: Awake and alert, GCS 15 Vital Signs: 06:39 Weight 136.08 kg; Height 5 ft. 3 in. ; Pain 10/10; vc1 06:52 BP 172 / 73; Pulse 75; Resp 17; Temp 97.3; Pulse Ox 100% ; Pain 8/10; jj7 08:13 BP 156 / 72; Pulse 85; Resp 18; Pulse Ox 98% on R/A; ph 09:35 BP 149 / 78; Pulse 79; Resp 18; Temp 97.2; Pulse Ox 99% on R/A; ph 06:39 Body Mass Index 53.14 (136.08 kg, 160.02 cm) vc1 06:39 Pain Scale: Adult vc1 06:52 Pain Scale: Adult jj7 MDM: 06:59 Patient medically screened. rn 08:35 Differential diagnosis: DVT. rn 09:05 Data reviewed: vital signs, nurses notes, lab test result(s), radiologic studies, rn doppler, and as a result, I will discharge patient. Counseling: I had a detailed discussion with the patient and/or guardian regarding the historical points, exam findings, and any diagnostic results supporting the discharge/admit diagnosis, lab results, radiology results, the need for outpatient follow up, to return to the emergency department if symptoms worsen or persist or if there are any questions or concerns that arise at home. Special discussion: I discussed with the patient/guardian in detail that at this point there is no indication for admission to the hospital. It is understood, however, that if the symptoms persist or worsen the patient needs to return immediately for re-evaluation. Based on the history and exam findings, there is no indication for further emergent testing or inpatient evaluation. I discussed with the patient/guardian the need to see the primary care provider for further evaluation of the symptoms. 04/04 07:09 Order name: CBC with Diff; Complete Time: 08:07 rn 04/04 07:09 Order name: Basic Metabolic Panel; Complete Time: 08: rn 04/04 07:09 Order name: Protime (+inr); Complete Time: 08: rn 04/04 07:09 Order name: Ptt, Activated; Complete Time: 08: rn 04/04 07:09 Order name: Extremity Venous Uni Ltd US; Complete Time: 08: rn 04/04 07:09 Order name: IV Start; Complete Time: 07:47 rn Administered Medications: No medications were administered Disposition Summary: 04/04/24 09:06 Discharge Ordered Notes: Location: Home rn Problem: new rn Symptoms: have improved rn Condition: Stable rn Diagnosis - Pain in right leg rn Followup: rn - With: Private Physician - When: As needed - Reason: Recheck today's complaints, Re-evaluation by your physician Discharge Instructions: - Discharge Summary Sheet rn - Pain Without a Known Cause rn Forms: - Medication Reconciliation Form rn - Antibiotic 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
[2024-04-04 09:44] VITALS: BP 149/78; TEMP 97.2; O2SAT 99
== END 2024-04-04 09:36 | disposition home or self-care (01) ==
LOC: ER 06:16
DX: M79.604 Pain in right leg (principal)
CPT/HCPCS: 36415; 80048; 85025; 85610; 85730; 93971; 99284